=== PATIENT | female | born 1955 | race Caucasian/White ===

== ENCOUNTER 2019-06-10 13:36 | Outpatient (CLI) | payer OTHER, SELFPAY ==
[2019-06-10 14:10] LABS: Abs Immature Grans 0.01 k/cumm (0.0-0.09); Absolute Basophil Count 0.04 k/cumm (0.0-0.2); Absolute Eosinophil Count 0.11 k/cumm (0.0-0.7); Absolute Lymphocyte Count 2.02 k/cumm (1.2-3.4); Absolute Monocyte Count 0.61 k/cumm (0.11-0.7); Absolute Neutrophil Count 4.48 k/cumm (1.2-6.7); Basophils % 0.6; Eosinophils % 1.5; HCT 40.7 % (36.0-46.0); HGB 13.5 g/dL (12.0-15.5); Immature Grans % 0.1 %; Lymphocytes % 27.8; Mean Corp. HGB Concentration 33.2 g/dL (32.0-36.0); Mean Corpuscular Hemoglobin 30.7 pg (27.0-33.0); Mean Corpuscular Volume 92.5 fL (80-95); Mean Platelet Volume 11.8 fL (8.0-11.0); Monocytes % 8.4; Neutrophils % 61.6; Platelet Count 256 x1000/uL (130-400); RBC Distribution Width 13.7 % (11.7-14.6); White Blood Cell Count 7.27 k/cumm (4.4-10.8)
[2019-06-10 15:03] LABS: ALT 24 U/L (14-59); AST 13 U/L (15-37); Alkaline Phosphatase 122 U/L (46-116); Anion Gap 9.1 mmol/L (3-11); BUN 18 mg/dL (7-18); Bilirubin, Total 0.5 mg/dL (0.2-1.0); CO2 27.9 mmol/L (21.0-32.0); CREATININE 0.89 mg/dL (0.55-1.02); Calcium 9.2 mg/dL (8.5-10.1); Chloride 103 mmol/L (98-107); Glucose 94 mg/dL (74-106); Lipase 109 U/L (73-393); Potassium 4.1 mmol/L (3.5-5.1); Sodium 140 mmol/L (136-145)
== END 2019-06-10 13:56 ==
PROVIDERS: PCP Nurse Practitioner; Visit Provider Surgery
DX: K80.50 Calculus of bile duct without cholangitis or cholecystitis without obstruction (principal)
CPT/HCPCS: 36415; 80053; 83690; 85025

== ENCOUNTER 2019-06-15 11:45 | Day surgery (SDC) | payer OTHER, SELFPAY ==
[2019-06-15] VITALS (9 sets, daily range): BP systolic 116–161; BP diastolic 65–96; PULSE 58–65; RESP 12–16; TEMP 36–36.4; O2SAT 92–100
[2019-06-15] MEDS: Acetaminophen 500 MG TAB 1000 MG PO (12:15)
[2019-06-15] MEDS: Celecoxib 200 MG CAP PO (12:15)
[2019-06-15] MEDS: Lactated Ringers 1,000 ML 80 ML IV (12:31)
[2019-06-15] MEDS: AMPICILLIN/SULBACTAM 3 GM in Normal Saline 100 ML IVPB (13:15)
--- NOTE | 2019-06-15 14:16 | GB_PTH ---
PATIENT: Benny Pena LOC: [facility] U#:[id number] AGE/SX: 63/F ROOM: RE06/15/[address]: Belen Miranda : 1955 BED: DIS: 06/15/2019 SPEC #: [id number] RECD: 06/15/19 16:20 STATUS: PAYAM REFelicitas #: [id number] KAMALJIT: 06/15/19 14:[address]: Belen Miranda DEPT: Surgical Specimen RECD BY: Aleyda Barron ENTERED: 06/15/19 16:20 SP TYPE: GB OTHR DR: Randa Galvez Tissues: 1 - GALLBLADDER Procedures: GROSS AND MICRO LEVEL 3 Comments: [id number]
[2019-06-15] MEDS: Cellulose,Oxidized 4X8 1 PACKET MC (14:18)
--- NOTE | 2019-06-15 14:49 | W.PM.OP ---
Date of service: 06/15/19 Time of Service: 14:49 Operative Note Operative Note DATE OF PROCEDURE: 06/15/19 PRE-OP DIAGNOSIS: chronic neto/gallstones POST-OP DIAGNOSIS: same PROCEDURE: lap neto SURGEON: Andrew Oquendo MELT DOWN FURNACE OPERATOR: Rajani Jin ANESTHESIA: GETA ESTIMATED BLOOD LOSS: 10 PATHOLOGY: other COMPLICATIONS: None Patient was transported to: PACU Procedure Description: CHOLECYSTECTOMY POST-OPERATIVE REPORT PRE-OPERATIVE DIAGNOSIS: cholecystitis, cholelithiasis. POST-OPERATIVE DIAGNOSIS: chronic cholecystitis, cholelithiasis PROCEDURE: Laparoscopic cholecystectomy. SURGEON: Andrew Oquendo DO assist: DENI Jin ANESTHESIA: General. ESTIMATED BLOOD LOSS: Less than 10 mL COMPLICATIONS: The patient tolerated the procedure without complication. INDICATIONS: The pt is seen at the request of there PCP regarding acute on chronic cholecystitis, cholelithiasis. The pt has failed outpt conservative medical measures and is here today for laparoscopic cholecystectomy. Informed consent was obtained, explaining risks and benefits of the procedure including but not limited to bleeding, infection, pneumonia, blood clots, possible damage to bowel, bladder, blood vessels, bile ducts, possible open procedure, complications of general anesthesia and other unforetold complications. PROCEDURE: The patient agrees and is brought to the operative room suite and placed in supine position. Anesthesia was administered per the Department of Anesthesia. The patient did receive IV antibiotics. NG tube is placed. The patient was prepped and draped in the usual sterile fashion using DuraPrep scrub solution. Pause for the cause was done. 20 mL of 1% buffered lidocaine was used for local anesthetization. A stab incision was made in the umbilicus and the Verres inserted. Drop test was positive and insufflation was begun. When 15 mm of pressure was noted on the monitor, the Veress was removed and #5 port inserted. The camera was inserted through the port and shows no damage to underlying structures. A 10 mm port was then placed in the epigastric position under direct visualization following creation of local field blocks as well as two 5 mm ports in the right upper quadrant. The gallbladder fundus was grasped and retracted towards the right shoulder. Infundibulum was grasped and retracted laterally. The hepat-duodenal ligament is entered. The cystic duct and artery are dissected out and the most inferior portion of the gallbladder plate is removed from the liver and the critical view of safety was obtained after clearing away all fatty material. Endo Clips were placed across the duct and artery and these structures are divided. The remainder of the gallbladder was excised from the liver bed. The gallbladder was placed in a bag and brought out. Examination of the gallbladder shows indeed the cystic duct and artery to have been divided. There is some generalized oozing of the liver bed - x2 ppices of surgicel are placed. The remainder of the abdomen was copiously irrigated with a liter of saline. All saline is removed. There is no bleeding or bile leakage from the liver bed or the clips sites. An EndoClose needle was used to close the 10 mm port site with an 0 Vicryl. All ports and instruments are removed. SPonge and needle counts are correct. Pneumoperitoneum is evacuated and the port sites are monitored to make sure there is no bleeding at the time of desufflation. Port sites are irrigated and the skin is closed with 4-0 Monocryl in a running subcuticular fashion. Skin glue sterile dressings are applied. The patient tolerated the procedure well without complications, transferred to the recovery room in stable condition. ANDREW OQUENDO DO
--- NOTE | 2019-06-15 15:33 | PDOC.DSDIS_ITS ---
Discharge Plan Disposition Patient Disposition: HOME Condition: Good Discharge Details Reason For Visit: gall Attending Provider: Belen Miranda Primary Care Provider: Randa Galvez Home Meds and New Rx's Prescriptions: New oxycodone 5 mg capsule 5 mg PO Q4H PRN (Reason: pain) Qty: 10 RF: 0 ibuprofen 600 mg tablet 600 mg PO Q6H PRN (Reason: pain) Qty: 60 RF: 0 ondansetron HCl [Zofran] 4 mg tablet 4 mg PO Q6H PRN (Reason: nausea and vomiting) Qty: 3 RF: 0 Continued furosemide [Lasix] 40 MG tablet 40 mg PO DAILY RF: 0 atenolol 100 MG tablet 100 mg PO DAILY RF: 0 meloxicam [Mobic] 15 MG tablet 15 mg PO DAILY RF: 0 omeprazole 40 MG capsule,delayed release(DR/EC) 40 mg PO DAILY RF: 0 lisinopril 10 MG tablet 10 mg PO DAILY RF: 0 gabapentin 300 MG capsule 300 mg PO TID RF: 0 sertraline [Zoloft] 25 MG tablet 25 mg PO DAILY RF: 0 Discharge Instructions Additional Instructions: Care after Gallbladder Surgery -You should walk frequently, gradually, increasing the distance. You may climb stairs, just go slowly. -You can take Advil 600mg 4 times a day with food for the first week for pain; you may take your prescription medication as prescribed-in addition to the Advil. Discontinue Advil if it hurts your stomach. Do not take Advil if you are intolerant to aspirin products or have stomach problems. ? Use an ice bag for the first 72 hours. This helps to decrease swelling, which causes pain. It is normal to be more sore/painful and swollen towards the end of the day and first thing in the morning. ? Gallbladder surgery can make you very nauseated; use Zofran for nausea, for the first 24 hours. The nausea generally stops after 24 hours. ? Use milk of magnesia or prune juice to prevent constipation (this is a particular side effect of pain medication). Do not allow yourself to become con stipated. ? Avoid fatty or greasy foods; introduce these slowly, with care, after about 1 month. Follow the low-fat diet sheet that will be given to you at the office or hospital. ? Start out eating very small, bland amounts of food. Do not take pain pills on an empty stomach. - You can remove the Band-Aids and take a shower 24 hours after surgery. There will be some narrow white strips of tape across your incisions (under the Band-Aids). DO NOT REMOVE THESE. It is all right if they get wet. They will be removed in the doctor?s office. ? Do not go swimming or sit in a hot tube for two weeks. ? There are no stitches to remove. ? Do not drive your car x72hrs and then only if you have no pain and can move freely. Do not drive if you are taking pain narcotic pain medications. ? You may resume sexual activity whenever pain and soreness subside, usually in 2 weeks. ? Do no lift anything over 5 lbs. for the first 10 days. Minimize strenuous activity for the next two weeks. ? You may return to work in one week, or when you feel able, provided you do not have to do any heavy lifting or prolonged standing. ? You should return to Dr. Miranda?s office for a post-op appointment about one week after surgery. Please call the Surgical Clinic at: [phone] to schedule an appointment. My Medications for pain and nausea are: ibuprofen and ultram and zofran When to Call the Office: ? If the incision becomes red or swollen, or there is more than a little drainage from it. ? If you develop a temperature higher than 100.5 F. ? If your eyes turn yellow ? Vomiting and can?t keep fluids down Discharge Orders Discharge Orders: Discharge Order (Routine); Ordered 06/15/19 Ordered By: Belen Miranda DS: Diagnosis Discharge Diagnosis (1) Biliary colic: Status: Acute (2) Gallstones without obstruction of gallbladder: Status: Acute
== END 2019-06-15 16:50 | disposition home or self-care (01) ==
PROVIDERS: PCP Nurse Practitioner; Visit Provider Surgery
PROC: 0FT44ZZ Resection of Gallbladder, Percutaneous Endoscopic Approach (ICD-10-PCS; CPT 47562; principal; 2019-06-15 13:00)
DX: K80.12 Calculus of gallbladder with acute and chronic cholecystitis without obstruction (principal); I10 Essential (primary) hypertension
CPT/HCPCS: 47562; 88304; J0295; J1100; J1885; J2405; J2704

== ENCOUNTER 2019-06-18 23:30 | Inpatient (IN) | payer OTHER, SELFPAY ==
--- NOTE | 2019-06-18 23:30 | DI.CT_ITS ---
EXAM: CT ABDOMEN PELVIS W CLINICAL HISTORY: abdominal pain and fever, recent surgery TECHNIQUE: Imaging Protocol: Axial computed tomography images with coronal and sagittal reformatted images were created and reviewed CONTRAST MATERIAL: Intravenous: Omnipaque 350 Contrast volume:100 mL Oral: Yes COMPARISON: No exams were available for comparison FINDINGS: ABDOMEN: Lung Bases: Normal where visualized. Liver: Normal density. There are a few tiny hypodensities in the liver. They are too small for furth er characterization but likely reflect small cysts. Portal, Superior Mesenteric, and Splenic Veins: Unremarkable. Gallbladder and Biliary Tract: Surgical clips are seen in the gallbladder fossa and pneumoperitoneum is present suggesting recent cholecystectomy.Correlation with patient's surgical history. There is a 7.7 x 5.2 x 3.6 cm complex mass in the gallbladder fossa. It contains liquid and gas. This may rep resent an abscess. Inflammatory stranding is seen in the surrounding soft tissues. There also appea rs to be mild thickening of the adjacent transverse colon and stomach. No biliary ductal dilatation or pneumobilia is present. Pancreas: Normal density, no abnormal calcifications or inflammatory process. Spleen: Normal. Adrenals: No masses seen. Kidneys: Normal size, contour and axis. No radiodense stones or obstructive uropathy. There is a 4 cm simple cyst in the left kidney. Abdominal Aorta: Abdominal portion non-dilated. Atherosclerosis is present. Bowel: No evidence of bowel obstruction. The appendix is not visualized but no findings to suggest a n acute appendicitis are present. Mild thickening of the wall of the proximal transverse colon and s tomach adjacent to the gallbladder fossa is noted. Peritoneal Cavity: There is pneumoperitoneum present this may reflect the patient's recent surgery. A small amount of pelvic ascites is present. Lymph Nodes: Within normal limits. Bones: Degenerative changes are present. There is a left convex scoliosis of the lumbar spine. Soft Tissues: Unremarkable. PELVIS: Bladder: Symmetric distention, no gross wall thickening. Reproductive Organs: Unremarkable as visualized. Lymph Nodes: Within normal limits. Bones: Degenerative changes are present. IMPRESSION: 1. 7.7 cm complex fluid and air collection in the gallbladder fossa suspicious for an abscess. Posts urgical hematoma cannot be excluded. 2. Mild pneumoperitoneum likely reflecting recent surgery. 3. Small amount of free fluid in the pelvis. 4. Mild wall thickening in the proximal transverse colon and stomach adjacent to the gallbladder isidro a fluid collection suggesting a mild secondary inflammatory process. Incidental findings Critical Findings RADIATION DOSE DELIVERED: DATA REPOSITORY: All CT scans at this facility are submitted to the National Radiology Data Registry (NRDR) Dose Index Registry (DIR) with the [employer] (ACR). RADIATION OPTIMIZATION: All CT scans at this facility use at least one of these dose optimization te chniques: automated exposure control; mA and/or kV adjustment per patient size (includes targeted exa ms where dose is matched to clinical indication); or iterative reconstruction.
[2019-06-18 23:35] VITALS: BP 119/65; PULSE 84; RESP 16; TEMP 37; O2SAT 97
[2019-06-18] MEDS: Breeza Beverage 473 ML BTL PO ×2 (23:36→23:37)
[2019-06-18] MEDS: Omnipaque 350 MG/ML 50 ML BTL PO (23:36)
--- NOTE | 2019-06-18 23:37 | ED.GENADUL_ITS ---
Discharge Plan Disposition Patient Disposition: [facility] INPATIENT Condition: Stable Discharge Details Chief Complaint: Abd Prob Clinical Impression: Intra-abdominal infection Primary Care Provider: Randa Galvez ED Provider: Dylon Christian Home Meds and New Rx's Prescriptions: No Action furosemide [Lasix] 40 MG tablet 40 mg PO DAILY RF: 0 atenolol 100 MG tablet 100 mg PO DAILY RF: 0 meloxicam [Mobic] 15 MG tablet 15 mg PO DAILY RF: 0 omeprazole 40 MG capsule,delayed release(DR/EC) 40 mg PO DAILY RF: 0 lisinopril 10 MG tablet 10 mg PO DAILY RF: 0 gabapentin 300 MG capsule 300 mg PO TID RF: 0 sertraline [Zoloft] 25 MG tablet 25 mg PO DAILY RF: 0 acetaminophen [Tylenol Extra Strength] 500 mg Tablet 1,000 mg PO Q4H PRN PRNRF: 0 oxycodone 5 mg capsule 5 mg PO Q4H PRN (Reason: pain) Qty: 10 RF: 0 ondansetron HCl [Zofran] 4 mg tablet 4 mg PO Q6H PRN (Reason: nausea and vomiting) Qty: 3 RF: 0 Medical Decision Making 63 yo female with hx of htn who underwent lap neto this past Thursday comes in with intermittent fever to 102 since then and tonight started to have abdominal pain. Has had some nausea no vomit. Denies any cough, runny nose, urinary symptoms, chest pain, headache,neck stiffness, and no known sick contacts. She localizes the pain to the upper abdomen. Her incisions show no signs of infection and she has tenderness in the upper abdomen bilaterally. Will obtain labs and Ct to eval for abscess among other pathology. Given lack of cough or other respiratory symptoms doubt pna and no symptoms to suggest covid19. CT shows hematoma vs phelgmon vs early abscess. Given her fevers likely abscess. Spoke with Dr. Denson and will give zosyn and admit. Pt agrees withp karthik Differential Diagnosis Differential Diagnosis: abscess, pneumoperitoneum, uti Medical Records Medical records reviewed: Yes I reviewed the patient's medical records. Imaging Data Radiologic Study: Attestation: I personally reviewed and interpreted this imaging study as follows: Imaging: CT Scan Radiologist's impression: IMPRESSION: 1. A 7.7 cm heterogeneous collection in the gallbladder fossa adjacent to gallbladder clips. This may represent a hematoma that may or may not be infected. The presence of inflammatory stranding in the surrounding soft tissues and a significant amount of gas in the lesion suggests infection. 2. Mild pneumoperitoneum, possibly residual from recent surgery however, there are gas bubbles tracking anteriorly from this lesion to the peritoneal cavity. 3. A small amount of free fluid extending into the lower pelvis. 4. Other incidental findings as above. Lab Data Lab results reviewed: Yes I reviewed the patient's lab results. HPI General Mode of arrival: wheelchair . Date/Time Provider Initiated Documentation: 06/18/19 23:31 . Limitations to Documentation: no limitations . Information obtained by: patient . History of Present Illness 63 year old F presents to the emergency department with the chief complaint of abdominal pain, described as moderate, Patient started experiencing this hour(s) (3) and it has been constant. No relieving factors improve symptom(s), No exacerbating factors reported . Patient did receive the following treatments prior to arrival, none Related Data Home Medications Medication Instructions Recorded Confirmed atenolol 100 mg PO DAILY tab-cap NS 12/09/16 06/18/19 furosemide [Lasix] 40 mg PO DAILY tab-cap NS 12/09/16 06/18/19 gabapentin 300 mg PO TID tab-cap NS 12/09/16 06/18/19 lisinopril 10 mg PO DAILY tab-cap NS 12/09/16 06/18/19 meloxicam [Mobic] 15 mg PO DAILY tab-cap NS 12/09/16 06/18/19 omeprazole 40 mg PO DAILY tab-cap NS 12/09/16 06/18/19 sertraline [Zoloft] 25 mg PO DAILY tab-cap NS 12/09/16 06/18/19 ondansetron HCl [Zofran] 4 mg PO Q6H PRN #3 tab 06/15/19 06/18/19 oxycodone 5 mg PO Q4H PRN #10 cap 06/15/19 06/18/19 acetaminophen [Tylenol Extra 1,000 mg PO Q4H PRN PRN 06/18/19 06/18/19 Strength] Previous Rx's Medication Instructions Recorded ondansetron HCl [Zofran] 4 mg PO Q6H PRN #3 tab 06/15/19 oxycodone 5 mg PO Q4H PRN #10 cap 06/15/19 Allergies Allergy/AdvReac Type Severity Reaction Status Date / Time No Known Allergies Allergy Unverified 06/18/19 23:43 Review of Systems All systems reviewed & are unremarkable except as noted in HPI and below Constitutional Constitutional: Denies weakness Cardiovascular Cardiovascular: Denies chest pain and Denies dyspnea Respiratory Respiratory: Denies cough and Denies dyspnea Gastrointestinal Gastrointestinal: Denies vomiting Genitourinary Genitourinary: Denies dysuria Musculoskeletal Musculoskeletal: Denies joint swelling Integumentary/Breasts Skin/Breast: Denies rash Neurologic Neurologic: Denies weakness Psychiatric Psychiatric: Denies depression PFSH Medical History (Updated 06/19/19 @ 01:42 by Dylon Christian MD) Fibromyalgia Gallstones (Acute) Gallstones without obstruction of gallbladder (Acute) GERD (gastroesophageal reflux disease) High cholesterol Hypertension Kidney stones Surgical History EGD - MAC (12/24/16) , Ectopic Tonsillectomy Social History (Updated 05/27/19 @ 15:06 by Gricelda Barry MD) Smoking/Tobacco Use Status: Former Tobacco Use Smokeless tobacco user: other Alcohol Intake: current Alcohol Intake frequency: a few times a month Alcohol type: hard liquor Drug use: Never Substance use type: tranquilizers Details: PT USES ELECTRONIC CIGARETTES Do you feel safe at home: Yes Do you feel safe in your relationship?: Yes Exam Const General: no acute distress Orientation: alert HENMT Head: normal to inspection Ears: external ears normal General nose exam: external nose normal Mouth: moist mucous membranes Eyes General: appearance normal, both eyes and all related structures Neck Neck: normal visual inspection Resp Effort & Inspection: normal respiratory effort and able to speak in complete sentences Cardio Rate: regular rate GI Palpation: soft Skin General skin exam: no rashes or lesions noted Neuro General: patient alert and patient oriented x3 Extrem General: normal to inspection Psych Mental Status: mental status grossly normal
[2019-06-19] VITALS (22 sets, daily range): BP systolic 91–132; BP diastolic 54–84; PULSE 74–85; RESP 16–20; TEMP 36.6–37.3; O2SAT 91–99
--- NOTE | 2019-06-19 | DI.NM_ITS ---
EXAM: NM HEPATOBILIARY SCAN GRP CLINICAL HISTORY: BIloma s/p lap neto. TECHNIQUE: Injected dose: 4.4 mCi Tc-99 mebrofenin Initial dynamic images: 60 minutes COMPARISON: CT ABDOMEN PELVIS W from 06/19/2019 FINDINGS: Normal hepatic transit time. Prompt excretion into the bile ducts and small bowel. The gallbladder is not visualized consistent with recent cholecystectomy. There is no extravasation of contrast material to suggest a bile leak. IMPRESSION: 1. Unremarkable examination status post cholecystectomy. 2. No extravasation of contrast material to suggest a bile leak.
[2019-06-19] MEDS: Ondansetron 4 MG/2 ML VIAL IVP (00:03)
[2019-06-19] MEDS: Normal Saline 1,000 ML 1000 ML IV (00:03)
[2019-06-19 00:08] LABS: Lactate 1.4 mmol/L (0.6-1.4)
[2019-06-19 00:11] LABS: Abs Immature Grans 0.02 k/cumm (0.0-0.09); Absolute Basophil Count 0.01 k/cumm (0.0-0.2); Absolute Eosinophil Count 0.04 k/cumm (0.0-0.7); Absolute Lymphocyte Count 0.65 k/cumm (1.2-3.4); Absolute Neutrophil Count 8.03 k/cumm (1.2-6.7); Basophils % 0.1; Eosinophils % 0.4; HCT 39.6 % (36.0-46.0); HGB 13.1 g/dL (12.0-15.5); Immature Grans % 0.2 %; Lymphocytes % 7.1; Mean Corp. HGB Concentration 33.1 g/dL (32.0-36.0); Mean Corpuscular Hemoglobin 30.7 pg (27.0-33.0); Mean Corpuscular Volume 92.7 fL (80-95); Mean Platelet Volume 12.2 fL (8.0-11.0); Monocytes % 4.4; Neutrophils % 87.8; Platelet Count 158 x1000/uL (130-400); RBC 4.27 m/cumm (4.00-5.20); RBC Distribution Width 13.5 % (11.7-14.6); White Blood Cell Count 9.15 k/cumm (4.4-10.8)
[2019-06-19] MEDS: Omnipaque 350 MG/ML 100 ML BTL IJ (00:12)
--- NOTE | 2019-06-19 00:12 | NUR.NOTE ---
Nursing Note: 0005 Pt began drinking oral contrast,
[2019-06-19 00:23] LABS: INR 1.1 (0.9-1.1); PTT Activated 30.1 sec (21.0-31.4); Prothrombin Time 11.1 sec (9.3-11.0)
[2019-06-19 00:35] LABS: ALT 49 U/L (14-59); AST 21 U/L (15-37); Albumin 3.1 g/dL (3.4-5.0); Alkaline Phosphatase 128 U/L (46-116); Anion Gap 10.3 mmol/L (3-11); BUN 11 mg/dL (7-18); Bilirubin, Direct 0.41 mg/dL (0.00-0.20); CO2 28.7 mmol/L (21.0-32.0); CREATININE 1.18 mg/dL (0.55-1.02); Calcium 8.5 mg/dL (8.5-10.1); Chloride 100 mmol/L (98-107); Estimated GFR 46.41 (mL/min/1.73m2); Glucose 153 mg/dL (74-106); Lipase 41 U/L (73-393); Potassium 3.4 mmol/L (3.5-5.1); Sodium 139 mmol/L (136-145); Total Protein 6.4 g/dL (6.4-8.2)
[2019-06-19 01:10] LABS: Bilirubin Small (Negative); Blood Large (Negative); Clarity Sl Cloudy (Clear); Glucose Negative (Negative); Ketones Negative (Negative); Leukocyte Esterase Negative (Negative); Nitrite Negative (Negative)
[2019-06-19 01:20] LABS: Bacteria Few HPF (Negative); C & S Indicated? Yes; Casts Negative LPF (Negative); Crystals Negative HPF (Negative); Epithelial Cells Few HPF (Negative); Mucus Negative (Negative)
--- NOTE | 2019-06-19 01:31 | DI.VRAD_ITS ---
PROCEDURE INFORMATION: Exam: CT Abdomen And Pelvis With Contrast Exam date and time: 06/18/2019 11:33 PM Age: 63 years old Clinical indication: Abdominal pain; Prior surgery; Surgery date: <1 month; Surgery type: Gall bladder 06/09 TECHNIQUE: Imaging protocol: Computed tomography of the abdomen and pelvis with intravenous contrast. COMPARISON: No relevant prior studies available. FINDINGS: Lungs: The visualized lung bases appear normal. Liver: There is a hypodensity in the left liver lobe, too small to characterize but likely a cyst or hamartoma. Gallbladder and bile ducts: There are surgical clips in the gallbladder fossa. Adjacent to the surgical clips, in the gallbladder fossa, there is a contained heterogeneous mass with liquid, solid and gaseous component. Multiple gas bubbles are seen. It measures 7.7 x 5.2 x 3.6 cm. There is inflammatory stranding in the surrounding mesenteric and retroperitoneal fat extending to the level of the gastric antrum, which shows mild wall thickening. There is mild diffuse vanessa mesentery. There is fluid tracking down the right pararenal space and right paracolic gutter to the pelvis. A small amount of free fluid is seen in the pelvis. Pancreas: Normal. No ductal dilation. Spleen: Normal. No splenomegaly. Adrenals: Normal. No mass. Kidneys and ureters: There is a 4 cm simple appearing cyst in the left kidney. Stomach and bowel: There is no evidence of small bowel or colonic obstruction. Appendix: The appendix is not identified. Intraperitoneal space: There is a small amount of free air in the peritoneal cavity. Vasculature: Unremarkable. No abdominal aortic aneurysm. Lymph nodes: Unremarkable. No enlarged lymph nodes. Bladder: Unremarkable as visualized. Reproductive: Unremarkable as visualized. Bones/joints: There is mild levoconvex rotoscoliosis of the lumbar spine.The spine demonstrates moderate degenerative changes at multiple levels. At L5-S1, there is degenerative disc disease with vacuum disc and prominent posterior osteophytes causing moderate to severe bilateral neural foraminal narrowing. Soft tissues: Unremarkable. IMPRESSION: 1. A 7.7 cm heterogeneous collection in the gallbladder fossa adjacent to gallbladder clips. This may represent a hematoma that may or may not be infected. The presence of inflammatory stranding in the surrounding soft tissues and a significant amount of gas in the lesion suggests infection. 2. Mild pneumoperitoneum, possibly residual from recent surgery however, there are gas bubbles tracking anteriorly from this lesion to the peritoneal cavity. 3. A small amount of free fluid extending into the lower pelvis. 4. Other incidental findings as above. Findings were discussed with Dylon Christian at 06/19/2019 1:30 AM EDT. Dictated and Authenticated by: Uriah Rao MD. Ordering:MALOU Osborne MD
[2019-06-19] MEDS: Normal Saline 1,000 ML 150 ML IV ×2 (02:01→09:11)
[2019-06-19] MEDS: PIPERACILLIN/TAZO 4.5 GM in Normal Saline 100 ML IVPB (02:02)
--- NOTE | 2019-06-19 07:44 | PHA.ADMREV ---
Pharmacy Clinical Review - Admission Clinical Review (Last Updated 06/15/19 @ 15:33 by Belen Miranda DO) Intra-abdominal infection (Acute) No Known Allergies Allergy (Unverified 06/18/19 23:43) Height 5 ft 7 in Weight 112.1 kg Post-op Lap Choly 06/15/19, presents to ER w/possible intrabdominal infection - Renal Dosing Renal Dosing: BUN 11 mg/dL (7-18) 06/18/19 00:01 Creatinine 1.18 mg/dL (0.55-1.02) H 06/18/19 00:01 Medications needing adjustments: Reviewed (CrCl~48ml/min-no renal meds) - Anticoagulation Anticoagulation: Hgb 13.1 g/dL (12.0-15.5) 06/18/19 00:01 Hct 39.6 % (36.0-46.0) 06/18/19 00:01 Plt Count 158 x1000/uL (130-400) 06/18/19 00:01 INR 1.1 (0.9-1.1) 06/18/19 00:01 Creatinine 1.18 mg/dL (0.55-1.02) H 06/18/19 00:01 DVT Prohphylaxis: Reviewed (none at this time....was in OR ~ 2am on 06/19/19) Therapeutic Anticoagulation: N/A - Opiate Usage Evaluate Pain Scale/Pains Meds: N/A - Relevant Labs Sodium 139 mmol/L (136-145) 06/18/19 00:01 Potassium 3.4 mmol/L (3.5-5.1) L 06/18/19 00:01 Chloride 100 mmol/L (98-107) 06/18/19 00:01 Electrolytes, C-Reactive P, ESR: Reviewed (Lactate normal 1.4, Alk Phos 128, will likely address Potassium replacement this morning) - Antimicrobial Stewardship Antibiotic appropriateness: Reviewed (Zosyn 4.5gram x 1 pre-op) Surgical Abx d/c within 24 hr: N/A (no post-op Anbx ordered) Culture review/Resistance: Reviewed (Blood and urine pending) - DM Control DM Control: Glucose 153 mg/dL (74-106) H 06/18/19 00:01 Insulin Dosing: N/A - Heart Failure/MA EF%, JOSE ARMANDO's, B-Blockers, Diuretics: N/A - BP Control BP Control: Blood Pressure 132/79 Blood Pressure 120/59 Blood Pressure 120/59 Blood Pressure 112/61 Blood Pressure 123/65 Blood Pressure 118/58 Blood Pressure 104/54 Blood Pressure 124/57 Blood Pressure 128/67 Blood Pressure 119/65 If elevated: N/A - QTc Review If Elevated: N/A - IV to PO Switch IV Medications: Reviewed (NPO for now, has IV APAP, IV Ketorolac & Zofran ordered) - Home Meds Home Med List reviewed: Reviewed (NPO, no home meds ordered, patient was in surgery, MD will be in shortly to see patient, likely will add home meds once taking oral) - Current meds Current Medication Order Review: Reviewed (IVFs, pain and nausea meds only at this time)
[2019-06-19] MEDS: Ketorolac 15 MG/ML VIAL IVP ×2 (09:10→16:08)
--- NOTE | 2019-06-19 09:13 | W.PM.HP.N ---
Date of service: 06/19/19 Time of Service: 09:13 Assessment and Plan Assessment and plan (1) Biloma following surgery: Status: Acute Assessment and plan: A\\ Mrs Pena is 4 days s/p Lap. Ada. She has increase in pain last night and fevers at home CT scan showed a fluid collection in the Gallbladder fossa- Leak from ducts of luschka vs cystic duct leak No Leukocytosis No fevers since admission P\\ HIDA scan today Most likely will need CT guided drainage procedure at [facility] or [email or web address] tomorrow +\- ERCP with stent placement Continue with NPO status and no Narcotic pain medications until after HIDA scan Plan discussed with patient Diagnoses and potential treatment discussed with patient She is in agreement with this plan. Qualifiers: Encounter type: initial encounter Qualified Code(s): T81.89XA - Other complications of procedures, not elsewhere classified, initial encounter; K66.8 - Other specified disorders of peritoneum History of Present Illness History of Present Illness Chief Complaint: Abdominal pain and fever Consults Consult date: 06/19/19 Requesting physician: Dylon Christian Narrative: Mrs. Pena is a pleasant 63 year old female POD #4 for a Laparoscopic Cholecystectomy. She started having some low grade fevers on Thursday afternoon without pain, N/V, headaches. Hydration, ambulation and tylenol was recommended to patient. Patient called on Thursday morning and still was having low grade \fevers but again no other symptoms. I asked her to continue with hydration and tylenol and to call if she developed abdominal pain. At 10:30 at night I got a call and she had increased abdominal pain as well as continued fever so I asked her to come to the ER. Labs were unremarkable. CT scan revealed a fluid collection in the gallbladder fossa with small amonut of air. ? infection. There was no intra-hepatic biliary dilation noted on CT scan. Bowel looked normal. Patient was admitted for further care. This morning she continues to have abdominal pain with movement only or deep breath. She has been afebrile since her admission. She denies N/V. She continues to pass flatus. Review of Systems Constitutional Constitutional: Denies fever(s), Denies headache(s), Denies night sweats, Reports poor appetite and Denies weight loss Eyes Eyes: Denies change in vision ENT Ears, Nose, Mouth, and Throat: Denies headache(s) and Denies hoarseness Cardiovascular Cardiovascular: Denies chest pain, Denies chest pain at rest and Denies dyspnea Respiratory Respiratory: Denies cough and Denies dyspnea Gastrointestinal Gastrointestinal: Reports as per HPI Genitourinary Genitourinary: Denies urinary frequency and Denies difficulty voiding Musculoskeletal Musculoskeletal: Reports system reviewed and no additional complaints, except as documented Integumentary/Breasts Skin/Breast: Reports system reviewed and no additional complaints, except as documented Neurologic Neurologic: Reports system reviewed and no additional complaints, except as documented and Denies headache(s) Psychiatric Psychiatric: Reports system reviewed and no additional complaints, except as documented Endocrine Endocrine: Reports system reviewed and no additional complaints, except as documented PFSH Medical History (Updated 06/19/19 @ 09:33 by Gricelda Barry MD) Fibromyalgia Gallstones (Acute) Gallstones without obstruction of gallbladder (Resolved) GERD (gastroesophageal reflux disease) High cholesterol Hypertension Kidney stones Surgical History (Updated 06/19/19 @ 09:19 by Gricelda Barry MD) EGD - MAC (12/24/16) , Ectopic S/P laparoscopic cholecystectomy (Acute ~06/15/19) Tonsillectomy Social History (Updated 05/27/19 @ 15:06 by Gricelda Barry MD) Smoking/Tobacco Use Status: Former Tobacco Use Smokeless tobacco user: other Alcohol Intake: current Alcohol Intake frequency: a few times a month Alcohol type: hard liquor Drug use: Never Substance use type: tranquilizers Details: PT USES ELECTRONIC CIGARETTES Do you feel safe at home: Yes Do you feel safe in your relationship?: Yes Meds Home Medications and Allergies Home Medications Medication Instructions Recorded Confirmed Type atenolol 100 mg PO DAILY tab-cap NS 12/09/16 06/18/19 History furosemide [Lasix] 40 mg PO DAILY tab-cap NS 12/09/16 06/18/19 History gabapentin 300 mg PO TID tab-cap NS 12/09/16 06/18/19 History lisinopril 10 mg PO DAILY tab-cap NS 12/09/16 06/18/19 History meloxicam [Mobic] 15 mg PO DAILY tab-cap NS 12/09/16 06/18/19 History omeprazole 40 mg PO DAILY tab-cap NS 12/09/16 06/18/19 History sertraline [Zoloft] 25 mg PO DAILY tab-cap NS 12/09/16 06/18/19 History ondansetron HCl [Zofran] 4 mg PO Q6H PRN #3 tab 06/15/19 06/18/19 Rx oxycodone 5 mg PO Q4H PRN #10 cap 06/15/19 06/18/19 Rx acetaminophen [Tylenol Extra 1,000 mg PO Q4H PRN PRN 06/18/19 06/18/19 History Strength] Allergies Allergy/AdvReac Type Severity Reaction Status Date / Time No Known Allergies Allergy Unverified 06/18/19 23:43 Exam Const General: cooperative and no acute distress Orientation: alert and oriented x3 HENMT Head: normocephalic and atraumatic Resp Effort & Inspection: normal respiratory effort Auscultation: clear to auscultation bilaterally Cardio Rate: regular rate Rhythm: regular rhythm Heart Sounds: no gallops, no murmurs and no rubs GI Palpation: soft, no hepatosplenomegaly and tender in the RUQ; with no rebound tenderness Auscultation: normal bowel sounds Results Labs Result diagrams: 06/18/19 00:01 06/18/19 00:01 Labs: Laboratory Results - last 24 hr 06/18/19 06/18/19 06/18/19 00:01 00:01 00:01 WBC 9.15 RBC 4.27 Hgb 13.1 Hct 39.6 MCV 92.7 MCH 30.7 MCHC 33.1 RDW 13.5 Plt Count 158 MPV 12.2 H Immature Gran % 0.2 Neutrophils % 87.8 Lymphocytes % 7.1 Monocytes % 4.4 Eosinophils % 0.4 Basophils % 0.1 Absolute Neutrophils 8.03 H Absolute Lymphocytes 0.65 L Absolute Monocytes 0.40 Absolute Eosinophils 0.04 Absolute Basophils 0.01 PT INR APTT Sodium 139 Potassium 3.4 L Chloride 100 Carbon Dioxide 28.7 Anion Gap 10.3 BUN 11 Creatinine 1.18 H Estimated GFR/1.73 m2 46.41 Glucose 153 H Lactate 1.4 Calcium 8.5 Total Bilirubin 1.0 Conjugated Bilirubin 0.41 H AST 21 ALT 49 Alkaline Phosphatase 128 H Total Protein 6.4 Albumin 3.1 L Lipase 41 Urine Color Urine Clarity Urine pH Ur Specific [place] Urine Protein Urine Ketones Urine Blood Urine Nitrite Urine Bilirubin Urine Urobilinogen Ur Leukocyte Esterase Urine RBC Urine WBC Ur Epithelial Cells Urine Crystals Urine Bacteria Urine Casts Urine Mucus Ur Culture Indicated? Urine Glucose 06/18/19 06/18/19 00:01 01:00 WBC RBC Hgb Hct MCV MCH MCHC RDW Plt Count MPV Immature Gran % Neutrophils % Lymphocytes % Monocytes % Eosinophils % Basophils % Absolute Neutrophils Absolute Lymphocytes Absolute Monocytes Absolute Eosinophils Absolute Basophils PT 11.1 H INR 1.1 APTT 30.1 Sodium Potassium Chloride Carbon Dioxide Anion Gap BUN Creatinine Estimated GFR/1.73 m2 Glucose Lactate Calcium Total Bilirubin Conjugated Bilirubin AST ALT Alkaline Phosphatase Total Protein Albumin Lipase Urine Color Yellow Urine Clarity Sl cloudy Urine pH 6.0 Ur Specific [place] 1.010 Urine Protein 30 H Urine Ketones Negative Urine Blood Large H Urine Nitrite Negative Urine Bilirubin Small H Urine Urobilinogen 4.0 H Ur Leukocyte Esterase Negative Urine RBC 10-20 H Urine WBC 3-5 Ur Epithelial Cells Few Urine Crystals Negative Urine Bacteria Few Urine Casts Negative Urine Mucus Negative Ur Culture Indicated? Yes Urine Glucose Negative Last Vital Signs Temp 99.1 F 06/19/19 07:15 Pulse 84 06/19/19 07:15 Resp 18 06/19/19 07:15 BP 129/80 06/19/19 07:15 Pulse Ox 91 L 06/19/19 07:15 COVID-19 Screening Traveled to [place] from one of the affected countries or regions?: NO Recent travel in the [place] within the last 8 weeks?: No Recent out of the country travel within the last 8 weeks?: No Exposure or possible exposure to illness during travel?: No Had IN PERSON contact w/suspected or confirmed C-19 person: No Have you had the following symptoms in the past few days?: Yes Symptoms noted since travel?: Fever Medical treatment received for symptoms/illness related to travel?: infection post op of gallbladder
--- NOTE | 2019-06-19 09:16 | INITIAL_ITS ---
- If Service Date Differs Date of service: 06/19/19 Time of Service: 09:16 Care Management Initial Assess REASON FOR HOSPITALIZATION:: Intra abdominal infection PAST MEDICAL HISTORY/PAST SURGICAL HISTORY:: Medical History. Fibromyalgia. Gallstones (Acute). Gallstones without obstruction of gallbladder (Acute). GERD (gastroesophageal reflux disease). High cholesterol. Hypertension. Kidney stones. Surgical History. EGD - MAC (12/24/16). , Ectopic. Tonsillectomy PREVIOUS FUNCTIONAL STATUS/SOCIAL/FAMILY SUPPORTS:: Benny lives in [place] with her , Pola. They have a daughter, Rona, who lives near . They have another daughter who lives in [place] as well. 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 She is independent at baseline. CURRENT FUNCTIONAL STATUS:: Benny was sitting up in her chair when CM met with her. She was pleasant and engaged in conversation, although mentioned pain associated with coughing/laughing. She reported that per MD, she will have a procedure at [facility] [place], which she will travel down and back for. She stated that this experience makes her nervous about future surgeries, such as knee replacements which she expects to require eventually. She also stated that she does not have her glasses or phone. CM suggested that her family can drop these items off at the front door (per our no visitor policy due to Covid19), and CM would deliver them to her room. She was appreciative and stated she would call her daughter right away. CM relayed this information to the RN Trailer Truck Driver, who will collect the items at the door. CM will continue to follow. ADVANCE DIRECTIVES:: None on file. Has patient been provided with information about the portal?: No Did the patient sign up for the portal?: No CODE STATUS:: Full Code INSURANCE COVERAGE / FINANCIAL ISSUES:: [facility] Plan/ Financial Asst 85% CURRENT HOME/COMMUNITY SERVICES/EQUIPMENT:: Benny does not have services in the community currently. She has a cane and FWW which she uses occasionally. PRIMARY CARE PHYSICIAN:: Randa Galvez POTENTIAL DISCHARGE NEEDS:: Evaluations for further needs, follow up appointments PATIENT/FAMILY EDUCATION NEEDS:: Review discharge instructions regarding activity levels and medications, discussion of self care needs including ask me three ANTICIPATED BARRIERS TO DISCHARGE:: None identified. TRANSPORTATION:: Anticipate Benny's family will drive her home via private vehicle. PLAN:: Per MD, Benny will go to [facility] tomorrow for a procedure. She will travel down and back in one day, barring any complications. Anticipate she will return home when medically cleared. Her will drive her home via private vehcile when ready. She will follow up with Surgery and her PCP, as recommended. CM will continue to follow and support discharge planning considerations.
[2019-06-19] MEDS: Lisinopril 10 MG TAB PO (09:31)
[2019-06-19] MEDS: Gabapentin 300 MG CAP PO ×3 (09:31→19:46)
[2019-06-19] MEDS: Atenolol 50 MG TAB 100 MG PO (09:32)
[2019-06-19] MEDS: Pantoprazole 40 MG VIAL IVP (09:32)
[2019-06-19] MEDS: Sertraline 25 MG TAB PO (09:56)
[2019-06-19] MEDS: Furosemide 40 MG TAB PO (09:56)
[2019-06-19] MEDS: PIPERACILLIN/TAZO 3.375 GM in Normal Saline 100 ML IVPB ×3 (10:16→21:47)
--- NOTE | 2019-06-19 14:20 | DI.VRAD_ITS ---
PROCEDURE INFORMATION: Exam: NM Hepatobiliary Including Gallbladder When Present With Pharmacological intervention, CCK only Exam date and time: 06/19/2019 2:15 PM Age: 63 years old Clinical indication: Ruq pain; Prior surgery; Surgery date: 3-7 days post-operative; Surgery type: Lap neto; Patient HX: Abnormal CT, ? bile leak; Additional info: 4.4 [facility] mebrofenin TECHNIQUE: Imaging protocol: Hepatobiliary including gallbladder when present with pharmacological intervention. Including quantitative measurements when performed. COMPARISON: CT ABDOMEN PELVIS W 06/19/2019 12:48 AM FINDINGS: Normal uptake of radiotracer by the liver. Normal excretion into the biliary tree and small bowel. Gallbladder not visualized consistent with recent cholecystectomy. No extravasation of contrast material to suggest a bile leak. IMPRESSION: Normal post cholecystectomy cholecystogram. Dictated and Authenticated by: Torrey Coker MD. Ordering:MARTINA Madison MD
[2019-06-19] MEDS: Normal Saline Flush 10 ML SYR IVP (17:33)
[2019-06-20 03:30] VITALS: BP 165/90; PULSE 98; RESP 17; TEMP 38.3; O2SAT 94
[2019-06-20] MEDS: PIPERACILLIN/TAZO 3.375 GM in Normal Saline 100 ML IVPB ×4 (03:38→23:44)
[2019-06-20 06:46] LABS: Abs Immature Grans 0.03 k/cumm (0.0-0.09); Absolute Basophil Count 0.02 k/cumm (0.0-0.2); Absolute Eosinophil Count 0.06 k/cumm (0.0-0.7); Absolute Lymphocyte Count 0.79 k/cumm (1.2-3.4); Absolute Monocyte Count 0.72 k/cumm (0.11-0.7); Absolute Neutrophil Count 8.72 k/cumm (1.2-6.7); Basophils % 0.2; Eosinophils % 0.6; HCT 32.8 % (36.0-46.0); HGB 10.9 g/dL (12.0-15.5); Immature Grans % 0.3 %; Lymphocytes % 7.6; Mean Corp. HGB Concentration 33.2 g/dL (32.0-36.0); Mean Corpuscular Hemoglobin 30.6 pg (27.0-33.0); Mean Corpuscular Volume 92.1 fL (80-95); Mean Platelet Volume 12.6 fL (8.0-11.0); Neutrophils % 84.3; Platelet Count 179 x1000/uL (130-400); RBC 3.56 m/cumm (4.00-5.20); RBC Distribution Width 13.8 % (11.7-14.6); White Blood Cell Count 10.34 k/cumm (4.4-10.8)
[2019-06-20 06:56] LABS: ALT 32 U/L (14-59); AST 11 U/L (15-37); Albumin 2.5 g/dL (3.4-5.0); Alkaline Phosphatase 132 U/L (46-116); Anion Gap 9.1 mmol/L (3-11); BUN 9 mg/dL (7-18); Bilirubin, Total 0.9 mg/dL (0.2-1.0); CO2 24.9 mmol/L (21.0-32.0); CREATININE 0.88 mg/dL (0.55-1.02); Calcium 8.2 mg/dL (8.5-10.1); Chloride 104 mmol/L (98-107); Glucose 123 mg/dL (74-106); Magnesium 1.6 mg/dL (1.8-2.4); Potassium 3.1 mmol/L (3.5-5.1); Sodium 138 mmol/L (136-145); Total Protein 6.4 g/dL (6.4-8.2)
[2019-06-20 07:20] VITALS: BP 153/83; PULSE 90; RESP 17; TEMP 38.5; O2SAT 95
[2019-06-20] MEDS: Gabapentin 300 MG CAP PO ×2 (07:58→20:31)
[2019-06-20] MEDS: Atenolol 50 MG TAB 100 MG PO (07:59)
[2019-06-20] MEDS: Sertraline 25 MG TAB PO (07:59)
[2019-06-20] MEDS: Lisinopril 10 MG TAB PO (07:59)
[2019-06-20 09:02] VITALS: TEMP 38.5
[2019-06-20] MEDS: Acetaminophen 500 MG TAB 1000 MG PO (09:02)
[2019-06-20] MEDS: Pantoprazole 40 MG VIAL IVP (09:25)
[2019-06-20] MEDS: Normal Saline Flush 10 ML SYR IVP ×2 (09:26→18:24)
[2019-06-20] MEDS: Normal Saline Flush 10 ML SYR (09:28)
[2019-06-20] MEDS: MAGNESIUM SULFATE 4 GM/100 ML BAG IVPB ×2 (11:21→11:25)
[2019-06-20 11:30] VITALS: BP 109/61; PULSE 67; RESP 17; TEMP 36; O2SAT 98
--- NOTE | 2019-06-20 12:23 | CMPROGNOTE_ITS ---
- If Service Date Differs Date of service: 06/20/19 Time of Service: 12:40 Care Management Progress Note S/O: Benny is sitting in a chair when CM comes to meet with her. She shares she is in a lot of pain and has been febrile for several days now. Benny had a cholecystectomy last Thursday and has not felt good since. Benny is scheduled for a down and back [place] [facility] this afternoon for a CT guided drainage procedure and possible ERCP with stent placement. Dr. Miranda comes in to speak with Benny while CM is present in the room. Dr. Miranda advises patient she may have an infection and that more will be known after she comes back from [facility]. CM will continue to follow. A: Benny is a 63 year old female admitted to [facility] on 06/19/2019 for post operative intra-abdominal infection. P: Anticipate Benny will return home with no new services when medically cleared by provider. Her will transport her home via private vehicle when ready. CM will continue to support patient and any discharge needs.
--- NOTE | 2019-06-20 12:38 | PGE_ITS ---
Date of Service Date of service: 06/20/19 Time of Service: 12:38 Assessment and Plan Assessment and plan (1) Infected hematoma following procedure: Status: Acute Assessment and plan: cbc- nl mild anemia d/w pt this is most likelt postOP hematoma that has b/c infected. D/w her what to expect from the procedure today adn hospital course. d/w fellow at [facility]. I think she should still go for aspiration/drain. cont postop cares. Subjective Subjective Interval history since last seen: pt states last night she felt good. Less pain and had an appetite. However, she is still having temps. I reviewed w/ her findings at surgery- that she had a diffuse ooze in the GB fossa post-procedure. I did place x2 surgicell in the wound bed. There is some air in the GB fosa - this could be from the surgicell or from abscess. She doen't have a WBC #'s, but she is still having temps. She is going to [facility] for drainage today and possible drain placement, We d/w risks and benefits of this procedure. Exam Chest Chest: normal inspection of the chest Resp Effort & Inspection: normal respiratory effort and able to speak in complete sentences Auscultation: clear to auscultation bilaterally Cardio Rate: regular rate Rhythm: regular rhythm GI Other: tender in RUQ. no distention. no nausea. incisions C/D/I. +BS Extrem General: normal to inspection, no clubbing, cyanosis or edema and no calf tenderness Objective Objective Clinical Data: Abnormal lab results 06/20/19 06/20/19 Range/Units 06:25 06:25 RBC 3.56 L (4.00-5.20) m/cumm Hgb 10.9 L D (12.0-15.5) g/dL Hct 32.8 L (36.0-46.0) % MPV 12.6 H (8.0-11.0) fL Absolute Neutrophils 8.72 H (1.2-6.7) k/cumm Absolute Lymphocytes 0.79 L (1.2-3.4) k/cumm Absolute Monocytes 0.72 H (0.11-0.7) k/cumm Potassium 3.1 L (3.5-5.1) mmol/L Glucose 123 H (74-106) mg/dL Calcium 8.2 L (8.5-10.1) mg/dL Magnesium 1.6 L (1.8-2.4) mg/dL AST 11 L (15-37) U/L Alkaline Phosphatase 132 H (46-116) U/L Albumin 2.5 L (3.4-5.0) g/dL Vital Signs Temperature 38.5 C H 06/20/19 09:02 Temperature Source Tympanic 06/20/19 07:20 Pulse 90 06/20/19 07:20 Pulse Rhythm Irregular 06/20/19 09:49 Respiratory Rate 17 06/20/19 07:20 Respiratory Effort 06/20/19 09:49 Respiratory Depth Normal 06/20/19 09:49 Respiratory Pattern Normal 06/20/19 09:49 Blood Pressure 153/83 H 06/20/19 07:20 Blood Pressure Mean 74 06/19/19 02:16 Pulse Oximetry 95 06/20/19 07:20 Oxygen Delivery Method Room Air 06/20/19 07:20 Oxygen Flow Rate 0 06/20/19 07:20 Pain Level 4 06/20/19 07:20 Comment 06/20/19 07:20 Intake & Output 06/19/19 06/20/19 06/20/19 23:59 11:59 23:59 Intake Total 540 / 2640 100 / 100 Output Total 350 / 1050 300 / 300 Balance 190 / 1590 -200 / -200 Weight 113.8 kg Intake: IV 300 / 2400 100 / 100 Oral 240 / 240 0 / 0 Output: Urine 350 / 1050 300 / 300 Other: Urine Color Dark [place] Urine Appearance Cloudy Clear Urine Odor Normal Normal Comment slightly cloudy urine. patient uses toilet independently Voiding Methods Toilet Toilet Laboratory Results WBC 10.34 k/cumm (4.4-10.8) 06/20/19 06:25 RBC 3.56 m/cumm (4.00-5.20) L 06/20/19 06:25 Hgb 10.9 g/dL (12.0-15.5) L D 06/20/19 06:25 Hct 32.8 % (36.0-46.0) L 06/20/19 06:25 MCV 92.1 fL (80-95) 06/20/19 06:25 MCH 30.6 pg (27.0-33.0) 06/20/19 06:25 MCHC 33.2 g/dL (32.0-36.0) 06/20/19 06:25 RDW 13.8 % (11.7-14.6) 06/20/19 06:25 Plt Count 179 x1000/uL (130-400) 06/20/19 06:25 MPV 12.6 fL (8.0-11.0) H 06/20/19 06:25 Immature Gran % 0.3 % 06/20/19 06:25 Neutrophils % 84.3 06/20/19 06:25 Lymphocytes % 7.6 06/20/19 06:25 Monocytes % 7.0 06/20/19 06:25 Eosinophils % 0.6 06/20/19 06:25 Basophils % 0.2 06/20/19 06:25 Absolute Neutrophils 8.72 k/cumm (1.2-6.7) H 06/20/19 06:25 Absolute Lymphocytes 0.79 k/cumm (1.2-3.4) L 06/20/19 06:25 Absolute Monocytes 0.72 k/cumm (0.11-0.7) H 06/20/19 06:25 Absolute Eosinophils 0.06 k/cumm (0.0-0.7) 06/20/19 06:25 Absolute Basophils 0.02 k/cumm (0.0-0.2) 06/20/19 06:25 PT 11.1 sec (9.3-11.0) H 06/18/19 00:01 INR 1.1 (0.9-1.1) 06/18/19 00:01 APTT 30.1 sec (21.0-31.4) 06/18/19 00:01 Sodium 138 mmol/L (136-145) 06/20/19 06:25 Potassium 3.1 mmol/L (3.5-5.1) L 06/20/19 06:25 Chloride 104 mmol/L (98-107) 06/20/19 06:25 Carbon Dioxide 24.9 mmol/L (21.0-32.0) 06/20/19 06:25 Anion Gap 9.1 mmol/L (3-11) 06/20/19 06:25 BUN 9 mg/dL (7-18) 06/20/19 06:25 Creatinine 0.88 mg/dL (0.55-1.02) 06/20/19 06:25 Estimated GFR/1.73 m2 >= 60.00 (mL/min/1.73m2) 06/20/19 06:25 Glucose 123 mg/dL (74-106) H 06/20/19 06:25 Lactate 1.4 mmol/L (0.6-1.4) 06/18/19 00:01 Calcium 8.2 mg/dL (8.5-10.1) L 06/20/19 06:25 Magnesium 1.6 mg/dL (1.8-2.4) L 06/20/19 06:25 Total Bilirubin 0.9 mg/dL (0.2-1.0) 06/20/19 06:25 Conjugated Bilirubin 0.41 mg/dL (0.00-0.20) H 06/18/19 00:01 AST 11 U/L (15-37) L 06/20/19 06:25 ALT 32 U/L (14-59) 06/20/19 06:25 Alkaline Phosphatase 132 U/L (46-116) H 06/20/19 06:25 Total Protein 6.4 g/dL (6.4-8.2) 06/20/19 06:25 Albumin 2.5 g/dL (3.4-5.0) L 06/20/19 06:25 Lipase 41 U/L (73-393) 06/18/19 00:01 Urine Color Yellow (Yellow) 06/18/19 01:00 Urine Clarity Sl cloudy (Clear) 06/18/19 01:00 Urine pH 6.0 (5-8) 06/18/19 01:00 Ur Specific [place] 1.010 (1.005-1.025) 06/18/19 01:00 Urine Protein 30 mg/dL (Negative) H 06/18/19 01:00 Urine Ketones Negative mg/dL (Negative) 06/18/19 01:00 Urine Blood Large (Negative) H 06/18/19 01:00 Urine Nitrite Negative (Negative) 06/18/19 01:00 Urine Bilirubin Small (Negative) H 06/18/19 01:00 Urine Urobilinogen 4.0 EU/dL (Up TO 0.2) H 06/18/19 01:00 Ur Leukocyte Esterase Negative (Negative) 06/18/19 01:00 Urine RBC 10-20 HPF (0-2) H 06/18/19 01:00 Urine WBC 3-5 HPF (0-5) 06/18/19 01:00 Ur Epithelial Cells Few HPF (Negative) 06/18/19 01:00 Urine Crystals Negative HPF (Negative) 06/18/19 01:00 Urine Bacteria Few HPF (Negative) 06/18/19 01:00 Urine Casts Negative LPF (Negative) 06/18/19 01:00 Urine Mucus Negative (Negative) 06/18/19 01:00 Ur Culture Indicated? Yes 06/18/19 01:00 Urine Glucose Negative mg/dL (Negative) 06/18/19 01:00
[2019-06-20] MEDS: Ondansetron 4 MG/2 ML VIAL IVP (18:23)
[2019-06-20] MEDS: Normal Saline 1,000 ML 150 ML IV (18:33)
--- NOTE | 2019-06-20 18:44 | W.PM.PROGNOT ---
Date of Service Date of service: 06/20/19 Time of Service: 18:44 Assessment and Plan Assessment and plan (1) Infected hematoma following procedure: Status: Acute Assessment and plan: gram stain sent cont on zosyn until afeb for 24hrs hold further nsaids pain management and supportive postOp cares. Subjective Subjective Interval history since last seen: pt returned from IR drainage placement. She had 75cc of infected hematoma removed. gram stain shows: neutraphills and rare maciej + Rods. Objective Objective Clinical Data: Abnormal lab results 06/20/19 06/20/19 Range/Units 06:25 06:25 RBC 3.56 L (4.00-5.20) m/cumm Hgb 10.9 L D (12.0-15.5) g/dL Hct 32.8 L (36.0-46.0) % MPV 12.6 H (8.0-11.0) fL Absolute Neutrophils 8.72 H (1.2-6.7) k/cumm Absolute Lymphocytes 0.79 L (1.2-3.4) k/cumm Absolute Monocytes 0.72 H (0.11-0.7) k/cumm Potassium 3.1 L (3.5-5.1) mmol/L Glucose 123 H (74-106) mg/dL Calcium 8.2 L (8.5-10.1) mg/dL Magnesium 1.6 L (1.8-2.4) mg/dL AST 11 L (15-37) U/L Alkaline Phosphatase 132 H (46-116) U/L Albumin 2.5 L (3.4-5.0) g/dL Vital Signs Temperature 36.0 C L 06/20/19 11:30 Temperature Source Tympanic 06/20/19 11:30 Pulse 67 06/20/19 11:30 Pulse Rhythm Irregular 06/20/19 09:49 Respiratory Rate 17 06/20/19 11:30 Respiratory Effort 06/20/19 09:49 Respiratory Depth Normal 06/20/19 09:49 Respiratory Pattern Normal 06/20/19 09:49 Blood Pressure 109/61 06/20/19 11:30 Blood Pressure Mean 74 06/19/19 02:16 Pulse Oximetry 98 06/20/19 11:30 Oxygen Delivery Method Room Air 06/20/19 11:30 Oxygen Flow Rate 0 06/20/19 11:30 Pain Level 5 06/20/19 11:30 Comment 06/20/19 07:20 Intake & Output 06/19/19 06/20/19 06/20/19 23:59 11:59 23:59 Intake Total 1540 / 3640 100 / 300 200 / 300 Output Total 350 / 1050 300 / 300 Balance 1190 / 2590 -200 / 0 200 / 0 Weight 113.8 kg Intake: IV 1300 / 3400 100 / 300 200 / 300 Oral 240 / 240 0 / 0 Output: Urine 350 / 1050 300 / 300 Other: Urine Color Dark [place] Dark [place] Brown Urine Appearance Cloudy Clear Urine Odor Normal Normal Comment slightly cloudy urine. patient uses toilet independently Voiding Methods Toilet Toilet Laboratory Results WBC 10.34 k/cumm (4.4-10.8) 06/20/19 06:25 RBC 3.56 m/cumm (4.00-5.20) L 06/20/19 06:25 Hgb 10.9 g/dL (12.0-15.5) L D 06/20/19 06:25 Hct 32.8 % (36.0-46.0) L 06/20/19 06:25 MCV 92.1 fL (80-95) 06/20/19 06:25 MCH 30.6 pg (27.0-33.0) 06/20/19 06:25 MCHC 33.2 g/dL (32.0-36.0) 06/20/19 06:25 RDW 13.8 % (11.7-14.6) 06/20/19 06:25 Plt Count 179 x1000/uL (130-400) 06/20/19 06:25 MPV 12.6 fL (8.0-11.0) H 06/20/19 06:25 Immature Gran % 0.3 % 06/20/19 06:25 Neutrophils % 84.3 06/20/19 06:25 Lymphocytes % 7.6 06/20/19 06:25 Monocytes % 7.0 06/20/19 06:25 Eosinophils % 0.6 06/20/19 06:25 Basophils % 0.2 06/20/19 06:25 Absolute Neutrophils 8.72 k/cumm (1.2-6.7) H 06/20/19 06:25 Absolute Lymphocytes 0.79 k/cumm (1.2-3.4) L 06/20/19 06:25 Absolute Monocytes 0.72 k/cumm (0.11-0.7) H 06/20/19 06:25 Absolute Eosinophils 0.06 k/cumm (0.0-0.7) 06/20/19 06:25 Absolute Basophils 0.02 k/cumm (0.0-0.2) 06/20/19 06:25 PT 11.1 sec (9.3-11.0) H 06/18/19 00:01 INR 1.1 (0.9-1.1) 06/18/19 00:01 APTT 30.1 sec (21.0-31.4) 06/18/19 00:01 Sodium 138 mmol/L (136-145) 06/20/19 06:25 Potassium 3.1 mmol/L (3.5-5.1) L 06/20/19 06:25 Chloride 104 mmol/L (98-107) 06/20/19 06:25 Carbon Dioxide 24.9 mmol/L (21.0-32.0) 06/20/19 06:25 Anion Gap 9.1 mmol/L (3-11) 06/20/19 06:25 BUN 9 mg/dL (7-18) 06/20/19 06:25 Creatinine 0.88 mg/dL (0.55-1.02) 06/20/19 06:25 Estimated GFR/1.73 m2 >= 60.00 (mL/min/1.73m2) 06/20/19 06:25 Glucose 123 mg/dL (74-106) H 06/20/19 06:25 Lactate 1.4 mmol/L (0.6-1.4) 06/18/19 00:01 Calcium 8.2 mg/dL (8.5-10.1) L 06/20/19 06:25 Magnesium 1.6 mg/dL (1.8-2.4) L 06/20/19 06:25 Total Bilirubin 0.9 mg/dL (0.2-1.0) 06/20/19 06:25 Conjugated Bilirubin 0.41 mg/dL (0.00-0.20) H 06/18/19 00:01 AST 11 U/L (15-37) L 06/20/19 06:25 ALT 32 U/L (14-59) 06/20/19 06:25 Alkaline Phosphatase 132 U/L (46-116) H 06/20/19 06:25 Total Protein 6.4 g/dL (6.4-8.2) 06/20/19 06:25 Albumin 2.5 g/dL (3.4-5.0) L 06/20/19 06:25 Lipase 41 U/L (73-393) 06/18/19 00:01 Urine Color Yellow (Yellow) 06/18/19 01:00 Urine Clarity Sl cloudy (Clear) 06/18/19 01:00 Urine pH 6.0 (5-8) 06/18/19 01:00 Ur Specific [place] 1.010 (1.005-1.025) 06/18/19 01:00 Urine Protein 30 mg/dL (Negative) H 06/18/19 01:00 Urine Ketones Negative mg/dL (Negative) 06/18/19 01:00 Urine Blood Large (Negative) H 06/18/19 01:00 Urine Nitrite Negative (Negative) 06/18/19 01:00 Urine Bilirubin Small (Negative) H 06/18/19 01:00 Urine Urobilinogen 4.0 EU/dL (Up TO 0.2) H 06/18/19 01:00 Ur Leukocyte Esterase Negative (Negative) 06/18/19 01:00 Urine RBC 10-20 HPF (0-2) H 06/18/19 01:00 Urine WBC 3-5 HPF (0-5) 06/18/19 01:00 Ur Epithelial Cells Few HPF (Negative) 06/18/19 01:00 Urine Crystals Negative HPF (Negative) 06/18/19 01:00 Urine Bacteria Few HPF (Negative) 06/18/19 01:00 Urine Casts Negative LPF (Negative) 06/18/19 01:00 Urine Mucus Negative (Negative) 06/18/19 01:00 Ur Culture Indicated? Yes 06/18/19 01:00 Urine Glucose Negative mg/dL (Negative) 06/18/19 01:00
[2019-06-20 18:57] VITALS: BP 150/88; PULSE 81; RESP 18; TEMP 37.9; O2SAT 94
[2019-06-20] MEDS: POTASSIUM CHLORIDE 10 MEQ/100 ML BAG 100 MEQ IVPB ×2 (20:31→22:09)
[2019-06-20] MEDS: Psyllium PKT 1 EACH PO (20:31)
[2019-06-20] MEDS: traMADol 50 MG TAB PO (20:49)
[2019-06-20] MEDS: Lactobacillus Acidophilus CAP 1 CAP PO (22:09)
[2019-06-20 22:50] VITALS: BP 156/91; PULSE 68; RESP 19; TEMP 36.8; O2SAT 96
[2019-06-21] VITALS (7 sets, daily range): BP systolic 143–166; BP diastolic 79–100; PULSE 72–82; RESP 16–20; TEMP 36.6–38; O2SAT 91–100
[2019-06-21] MEDS: PIPERACILLIN/TAZO 3.375 GM in Normal Saline 100 ML IVPB ×3 (05:55→19:41)
[2019-06-21 07:35] LABS: Abs Immature Grans 0.03 k/cumm (0.0-0.09); Absolute Basophil Count 0.01 k/cumm (0.0-0.2); Absolute Eosinophil Count 0.21 k/cumm (0.0-0.7); Absolute Lymphocyte Count 0.93 k/cumm (1.2-3.4); Absolute Monocyte Count 0.65 k/cumm (0.11-0.7); Absolute Neutrophil Count 7.78 k/cumm (1.2-6.7); Basophils % 0.1; Eosinophils % 2.2; HCT 31.5 % (36.0-46.0); HGB 10.5 g/dL (12.0-15.5); Immature Grans % 0.3 %; Lymphocytes % 9.7; Mean Corp. HGB Concentration 33.3 g/dL (32.0-36.0); Mean Corpuscular Hemoglobin 30.9 pg (27.0-33.0); Mean Corpuscular Volume 92.6 fL (80-95); Mean Platelet Volume 12.4 fL (8.0-11.0); Monocytes % 6.8; Neutrophils % 80.9; Platelet Count 205 x1000/uL (130-400); RBC Distribution Width 13.9 % (11.7-14.6); White Blood Cell Count 9.61 k/cumm (4.4-10.8)
[2019-06-21 07:55] LABS: Anion Gap 10.4 mmol/L (3-11); BUN 10 mg/dL (7-18); CO2 23.6 mmol/L (21.0-32.0); CREATININE 0.71 mg/dL (0.55-1.02); Calcium 8.2 mg/dL (8.5-10.1); Chloride 103 mmol/L (98-107); Glucose 88 mg/dL (74-106); Magnesium 1.9 mg/dL (1.8-2.4); Potassium 3.4 mmol/L (3.5-5.1); Sodium 137 mmol/L (136-145)
[2019-06-21] MEDS: Atenolol 50 MG TAB 100 MG PO (09:02)
[2019-06-21] MEDS: Lactobacillus Acidophilus CAP 1 CAP PO ×2 (09:02→19:40)
[2019-06-21] MEDS: Furosemide 40 MG TAB PO (09:02)
[2019-06-21] MEDS: Sertraline 25 MG TAB PO (09:03)
[2019-06-21] MEDS: Lisinopril 10 MG TAB PO (09:03)
[2019-06-21] MEDS: Gabapentin 300 MG CAP PO ×3 (09:03→19:40)
[2019-06-21] MEDS: Polyethylene Glycol 3350 17 GM PACKET PO (09:03)
[2019-06-21] MEDS: Normal Saline Flush 10 ML SYR IVP ×3 (09:04→19:51)
[2019-06-21] MEDS: Pantoprazole 40 MG VIAL IVP (10:38)
--- NOTE | 2019-06-21 11:04 | W.NUTCONSULT ---
Date of service: 06/21/19 Time of Service: 11:04 Nutritional Consult ASSESSMENT: 63 year old male s/p surgery for infected hematoma, s/p lap neto last week. Has been advanced to clear liquid diet, tolerating, expect will advance to regular diet later today. BMI indicates obesity. Will continue to monitor for risk of nutritional decline. At this time appears nutritionally stable. MONITORING AND EVALUATION: weight, po intake, labs Time Spent in Nutritional Counseling and Treatment: 0 time spent face to face
--- NOTE | 2019-06-21 13:34 | W.PM.PROGNOT ---
Date of Service Date of service: 06/21/19 Time of Service: 09:00 Assessment and Plan Assessment and plan (1) Infected hematoma following procedure: Status: Acute Assessment and plan: A/P: Encouraged activity OOB. Ordered PT consult for transfer training and strengthening. Patient tolerating clear liquid diet. Low grade temp this morning. Continue IV antibiotics. culture pending Subjective Subjective Interval history since last seen: Patient reports that she is feeling a little better today with complaints of abdominal soreness and hot spells. Exam Const General: cooperative, healthy appearing and comfortable Orientation: alert and oriented x3 Resp Effort & Inspection: normal respiratory effort, no audible wheezes and no cough GI Inspection: normal to inspection and non-distended Palpation: soft, no guarding and tender Other: Drain in place with dark/old blood in bulb. Objective Objective Clinical Data: Abnormal lab results 06/21/19 06/21/19 Range/Units 07:21 07:21 RBC 3.40 L (4.00-5.20) m/cumm Hgb 10.5 L (12.0-15.5) g/dL Hct 31.5 L (36.0-46.0) % MPV 12.4 H (8.0-11.0) fL Absolute Neutrophils 7.78 H (1.2-6.7) k/cumm Absolute Lymphocytes 0.93 L (1.2-3.4) k/cumm Potassium 3.4 L (3.5-5.1) mmol/L Calcium 8.2 L (8.5-10.1) mg/dL Vital Signs Temperature 38 C H 06/21/19 07:13 Temperature Source Temporal Artery Scan 06/21/19 07:13 Pulse 82 06/21/19 07:13 Pulse Rhythm Regular 06/21/19 08:14 Respiratory Rate 18 06/21/19 07:13 Respiratory Effort 06/21/19 08:14 Respiratory Depth Normal 06/21/19 08:14 Respiratory Pattern Normal 06/21/19 08:14 Blood Pressure 145/79 H 06/21/19 07:13 Blood Pressure Mean 74 06/19/19 02:16 Pulse Oximetry 92 L 06/21/19 07:13 Oxygen Delivery Method Room Air 06/21/19 07:13 Oxygen Flow Rate 0 06/21/19 07:13 Pain Level 5 06/21/19 08:10 Comment 06/20/19 07:20 Intake & Output 06/20/19 06/21/19 06/21/19 18:59 06:59 18:59 Intake Total 152.083 / 452.083 300 / 452.083 425 / 425 Output Total 275 / 275 200 / 200 Balance 152.083 / 177.083 25 / 177.083 225 / 225 Weight 113.8 kg 114.9 kg Intake: IV 152.083 / 452.083 300 / 452.083 420 / 420 Injectate 5 / 5 Right Upper Abdomen 5 / 5 Output: Drainage 75 / 75 Right Upper Abdomen 75 / 75 Urine 200 / 200 200 / 200 Other: Urine Color Brown Dark [place] Yellow Urine Appearance Clear Clear Clear Urine Odor Normal Stool Size Small Stool Characteristics Brown Voiding Methods Toilet Toilet Laboratory Results WBC 9.61 k/cumm (4.4-10.8) 06/21/19 07:21 RBC 3.40 m/cumm (4.00-5.20) L 06/21/19 07:21 Hgb 10.5 g/dL (12.0-15.5) L 06/21/19 07:21 Hct 31.5 % (36.0-46.0) L 06/21/19 07:21 MCV 92.6 fL (80-95) 06/21/19 07:21 MCH 30.9 pg (27.0-33.0) 06/21/19 07:21 MCHC 33.3 g/dL (32.0-36.0) 06/21/19 07:21 RDW 13.9 % (11.7-14.6) 06/21/19 07:21 Plt Count 205 x1000/uL (130-400) 06/21/19 07:21 MPV 12.4 fL (8.0-11.0) H 06/21/19 07:21 Immature Gran % 0.3 % 06/21/19 07:21 Neutrophils % 80.9 06/21/19 07:21 Lymphocytes % 9.7 06/21/19 07:21 Monocytes % 6.8 06/21/19 07:21 Eosinophils % 2.2 06/21/19 07:21 Basophils % 0.1 06/21/19 07:21 Absolute Neutrophils 7.78 k/cumm (1.2-6.7) H 06/21/19 07:21 Absolute Lymphocytes 0.93 k/cumm (1.2-3.4) L 06/21/19 07:21 Absolute Monocytes 0.65 k/cumm (0.11-0.7) 06/21/19 07:21 Absolute Eosinophils 0.21 k/cumm (0.0-0.7) 06/21/19 07: Absolute Basophils 0.01 k/cumm (0.0-0.2) 06/21/19 07:21 PT 11.1 sec (9.3-11.0) H 06/18/19 00:01 INR 1.1 (0.9-1.1) 06/18/19 00:01 APTT 30.1 sec (21.0-31.4) 06/18/19 00:01 Sodium 137 mmol/L (136-145) 06/21/19 07:21 Potassium 3.4 mmol/L (3.5-5.1) L 06/21/19 07:21 Chloride 103 mmol/L (98-107) 06/21/19 07:21 Carbon Dioxide 23.6 mmol/L (21.0-32.0) 06/21/19 07:21 Anion Gap 10.4 mmol/L (3-11) 06/21/19 07:21 BUN 10 mg/dL (7-18) 06/21/19 07:21 Creatinine 0.71 mg/dL (0.55-1.02) 06/21/19 07:21 Estimated GFR/1.73 m2 >= 60.00 (mL/min/1.73m2) 06/21/19 07:21 Glucose 88 mg/dL (74-106) 06/21/19 07:21 Lactate 1.4 mmol/L (0.6-1.4) 06/18/19 00:01 Calcium 8.2 mg/dL (8.5-10.1) L 06/21/19 07:21 Magnesium 1.9 mg/dL (1.8-2.4) 06/21/19 07:21 Total Bilirubin 0.9 mg/dL (0.2-1.0) 06/20/19 06:25 Conjugated Bilirubin 0.41 mg/dL (0.00-0.20) H 06/18/19 00:01 AST 11 U/L (15-37) L 06/20/19 06:25 ALT 32 U/L (14-59) 06/20/19 06:25 Alkaline Phosphatase 132 U/L (46-116) H 06/20/19 06:25 Total Protein 6.4 g/dL (6.4-8.2) 06/20/19 06:25 Albumin 2.5 g/dL (3.4-5.0) L 06/20/19 06:25 Lipase 41 U/L (73-393) 06/18/19 00:01 Urine Color Yellow (Yellow) 06/18/19 01:00 Urine Clarity Sl cloudy (Clear) 06/18/19 01:00 Urine pH 6.0 (5-8) 06/18/19 01:00 Ur Specific [place] 1.010 (1.005-1.025) 06/18/19 01:00 Urine Protein 30 mg/dL (Negative) H 06/18/19 01:00 Urine Ketones Negative mg/dL (Negative) 06/18/19 01:00 Urine Blood Large (Negative) H 06/18/19 01:00 Urine Nitrite Negative (Negative) 06/18/19 01:00 Urine Bilirubin Small (Negative) H 06/18/19 01:00 Urine Urobilinogen 4.0 EU/dL (Up TO 0.2) H 06/18/19 01:00 Ur Leukocyte Esterase Negative (Negative) 06/18/19 01:00 Urine RBC 10-20 HPF (0-2) H 06/18/19 01:00 Urine WBC 3-5 HPF (0-5) 06/18/19 01:00 Ur Epithelial Cells Few HPF (Negative) 06/18/19 01:00 Urine Crystals Negative HPF (Negative) 06/18/19 01:00 Urine Bacteria Few HPF (Negative) 06/18/19 01:00 Urine Casts Negative LPF (Negative) 06/18/19 01:00 Urine Mucus Negative (Negative) 06/18/19 01:00 Ur Culture Indicated? Yes 06/18/19 01:00 Urine Glucose Negative mg/dL (Negative) 06/18/19 01:00
--- NOTE | 2019-06-21 13:52 | CMPROGNOTE_ITS ---
- If Service Date Differs Date of service: 06/21/19 Time of Service: 13:52 Care Management Progress Note S/O: Benny is sleeping when CM comes to meet with her today. She has had difficulty sleeping since being at the hospital, so CM makes the decision to not wake her up. Benny had a stent placed at [facility] yesterday. According to her chart, she is feeling better today but reports abdominal soreness. She continues to be febrile and is on a course of antibiotics while awaiting the results of the culture done at [facility]. A PT evaluation for transfer training and strengthening has been ordered. CM will continue to follow. A: Benny is a 63 year old female admitted to [facility] on 06/19/2019 for post operative intraabdominal infection. P: Anticipate Benny will be discharged home with no new services when ready. Her will transport her home via private vehicle upon discharge. CM will continue to support patient and discharge planning needs.
--- NOTE | 2019-06-21 14:22 | PT.INIE ---
Date of service: 06/21/19 Time of Service: 14:00 PT Notes Visit Reasons: POST OPERATIVE INTRABDOMINAL INFECTION Inpatient Physical Therapy Evaluation Date: June 21, 2019 Referring Doctor: Rajani Jin PT Orders: PT CONSULT: Eval and treat transfer training Precautions: Standard Patient Profile/Admitting Diagnosis: Benny is a 63 year old female s/p Laparoscopic Cholecystectomy, when she started having some low grade fevers on Thursday afternoon. Symptoms progressed with increasing pain and was admitted to the hospital on 06/19/2019 s/p diagnosis of post operative intraabdominal infection. PMHX: Fibromyalgia. Gallstones (Acute). Gallstones without obstruction of gallbladder (Acute). GERD (gastroesophageal reflux disease). High cholesterol. Hypertension. Kidney stones. Surgical History. EGD - MAC (12/24/16). , Ectopic. Tonsillectomy. Benny notes that she has OA of bilateral knees and is in need of bilateral TKA, she also has a bad right shoulder that needs repair. Social History/Home Situation: Benny lives in [place] with her , Pola. They have a daughter, Rona, who lives near . They have another daughter who lives in [place] as well. 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 She is independent at baseline with occasional use of a walker secondary to her knee pain. She does report of 3-4 steps to enter her home. Otherwise her home is one level living. She notes that the laundry is in the basement however her has been doing this chore due to her knees as well. Current Functional Limitations: Worried about being able to be independent with getting into and out of bed on her own due to her 's cardiac history she does not want him to have to pull and tug on her. Equipment Owned/DME: Walker, cane Subjective: Benny was lying in bed on her left side at time of PT consult. She was agreeable to consult this PM. Objective: General Observation: IV right UE Mental Status: Alert and oriented x3. Very pleasant Pain: 0/10 at rest, 2-3/10 with transfers and mobility ROM: Right Upper Extremity: Shoulder flexion limited to 90 degrees, abduction to 150 degrees, ER to 30 degrees, and IR functional reach to side. Elbow/wrist/ hand WNL Left Upper Extremity: Demonstrates grossly full L UE ROM without pain Right Lower Extremity: Hip flexion 100 degrees, knee flexion 105 degrees lying in bed, lacking 10 degrees of terminal knee extension. WNL ankle ROM Left Lower Extremity: Hip flexion 100 degrees, knee flexion 110 degrees lying in bed, lacking 5 degrees of terminal knee extension, Ankle ROM WNL Strength: Right Upper Extremity: Shoulder Flexion 3+/5 with pain, abduction 4/5, ER 3/5, Bicep 4+/5, Tricep 4+/5, Good functional grasp Left Upper Extremity: Shoulder flexion 4+/5, abduction 4+/5,ER 4+/5, Bicep 5/5, Tricep 5/5, Good functional grasp Right Lower Extremity: Hip flexion N/T due to recent abdominal surgery, Knee flexion 4/5, knee extension 4+/5, DF/PF 5/5 Left Lower Extremity: Hip flexion N/T due to recent abdominal surgery, Knee flexion 4/5, knee extension 4+/5, DF/PF 5/5 Sensation: Intact to light touch Bed Mobility/Transfers: Rolling: I Supine-sit: HOB 20 degrees S with cueing on arm placement utilizing log roll technique Sit-supine: HOB 10 degrees S with cueing on log roll technique Sit-stand: S with FWW Stand-sit: S Gait: Utilized FWW 25ftx2, S Balance: Static Sitting: Normal Dynamic Sitting: Normal Static Standing: Good Dynamic Standing: Good Special Tests: Mobility Limitations Standardized Measure [facility] AM-PAC 6 clicks Basic Mobility Inpatient Short Form: Raw Score: 22 Standardized Score: 53.28 CMS Score: 20.91 % [facility] Modifier: CJ Informed Consent/Education: Patient instructed in purpose of PT consult and plan of care. Assessment: Patient is a 63 year old female referred to physical therapy services with the diagnosis of post operative intraabdominal infection. Patient presents with clinical signs and symptoms consistent with diagnosis, as demonstrated by the following impairment level findings: impaired core strength due to recent abdominal surgery, right shoulder weakness due to OA, and bilateral knee OA with limited ROM and strength. Impairments are contributing to the following functional limitations: transfer ability to get out of bed, decreased functional mobility and endurance Patient is assessed as a Low 50819 complexity based on the following: History: As above Examination: As above Presentation: Stable Decision Making: Low Goals: Goals X1 week 1. Supine-Sit I 2. Sit-Supine I 3. Sit-Stand I 4. Stand-Sit I 5. Bed-Chair I 6. Chair-Bed I 7. Gait I 100 ftx2 or greater without difficulty 8. Stairs ascend/descend 3-4 stairs with use of railings, S Plan of Care/Treatment Plan: 1-2x/day, 7 days/week x 1 week. Plan of care has been reviewed with the PRODUCT TECHNOLOGY SCIENTIST providing the service under Physical Therapy direction. Initiate Physical Therapy intervention for strengthening, bed mobility, transfers, gait, stairs, balance training, use of assistive device as needed to promote discharge home upon MD order. DISCHARGE RECOMMENDATIONS: Home to family TREATMENT CODE/TIME: 61367, 25 minutes, 14:00PM Thank you for this PT consult. Luz Huffman, MPT
[2019-06-21] MEDS: Metoprolol 5 MG/5 ML VIAL 2.5 MG IVP (15:50)
--- NOTE | 2019-06-21 16:07 | CHAPLAIN ---
I had a brief visit with Benny. She was in the middle of making phone calls. I explained my role and offered support. I will visit again tomorrow.
[2019-06-21] MEDS: Psyllium PKT 1 EACH PO (19:41)
[2019-06-22] MEDS: PIPERACILLIN/TAZO 3.375 GM in Normal Saline 100 ML IVPB ×4 (02:14→21:01)
[2019-06-22] MEDS: Normal Saline Flush 10 ML SYR IVP ×3 (02:16→14:24)
[2019-06-22 03:16] VITALS: BP 168/82; PULSE 79; RESP 18; TEMP 37.3; O2SAT 93
[2019-06-22 07:15] VITALS: BP 154/90; PULSE 74; RESP 16; TEMP 37; O2SAT 93
[2019-06-22 07:30] VITALS: BP 125/78; PULSE 62; RESP 22; TEMP 35.8; O2SAT 96
[2019-06-22] MEDS: Sertraline 25 MG TAB PO (08:22)
[2019-06-22] MEDS: Lactobacillus Acidophilus CAP 1 CAP PO ×2 (08:23→21:01)
[2019-06-22] MEDS: Furosemide 40 MG TAB PO (08:23)
[2019-06-22] MEDS: Atenolol 50 MG TAB 100 MG PO (08:24)
[2019-06-22] MEDS: Gabapentin 300 MG CAP PO ×3 (08:24→21:01)
[2019-06-22] MEDS: Psyllium PKT 1 EACH PO (08:25)
[2019-06-22] MEDS: Omeprazole 20 MG CAPCR PO (08:26)
[2019-06-22] MEDS: Lisinopril 10 MG TAB PO (08:26)
--- NOTE | 2019-06-22 09:04 | W.PM.PROGNOT ---
Documented by User: DENI Silva 06/22/19 09:07 Date of Service Date of service: 06/22/19 Time of Service: 08:00 Assessment and Plan Assessment and plan (1) Infected hematoma following procedure: Status: Acute Assessment and plan: A/P: Continue with PT and activity OOB as tolerated. Encouraged use of incentive spirometer also. IV fluids have been D/C'd. Subjective Subjective Interval history since last seen: Benny reports that she is feeling well today. Expressed some concerns for SOB with exertion when getting OOB and walking to/from the restroom. She expresses some mild discomfort in her RUQ. Exam Const General: cooperative, healthy appearing and comfortable Orientation: alert and oriented x3 Resp Effort & Inspection: normal respiratory effort, no audible wheezes and no cough GI Inspection: normal to inspection and non-distended Other: Minimal drainage in drain appears like old blood. Objective Objective Clinical Data: Vital Signs Temperature 37.3 C 06/22/19 03:16 Temperature Source Tympanic 06/22/19 03:16 Pulse 79 06/22/19 03:16 Pulse Rhythm Regular 06/21/19 19:40 Respiratory Rate 18 06/22/19 03:16 Respiratory Effort 06/22/19 02:55 Respiratory Depth Normal 06/22/19 02:55 Respiratory Pattern Normal 06/22/19 02:55 Blood Pressure 168/82 H 06/22/19 03:16 Blood Pressure Mean 74 06/19/19 02:16 Pulse Oximetry 93 L 06/22/19 03:16 Oxygen Delivery Method Room Air 06/22/19 03:16 Oxygen Flow Rate 0 06/22/19 03:16 Pain Level 2 06/22/19 03:16 Comment 06/20/19 07:20 Intake & Output 06/21/19 06/22/19 06/22/19 18:59 06:59 18:59 Intake Total 665 / 1095 430 / 1095 0 / 0 Output Total 240 / 1018 778 / 1018 Balance 425 / 77 -348 / 77 0 / 0 Weight 114.8 kg Intake: IV 420 / 590 170 / 590 0 / 0 Oral 240 / 490 250 / 490 Injectate Right Upper Abdomen Output: Drainage Right Upper Abdomen Urine 200 / 950 750 / 950 Other: Urine Color Yellow Yellow Urine Appearance Clear Clear Urine Odor Normal None Stool Size Small Moderate Stool Characteristics Brown Soft Formed Voiding Methods Toilet Toilet Laboratory Results WBC 9.61 k/cumm (4.4-10.8) 06/21/19 07:21 RBC 3.40 m/cumm (4.00-5.20) L 06/21/19 07:21 Hgb 10.5 g/dL (12.0-15.5) L 06/21/19 07:21 Hct 31.5 % (36.0-46.0) L 06/21/19 07:21 MCV 92.6 fL (80-95) 06/21/19 07:21 MCH 30.9 pg (27.0-33.0) 06/21/19 07:21 MCHC 33.3 g/dL (32.0-36.0) 06/21/19 07:21 RDW 13.9 % (11.7-14.6) 06/21/19 07:21 Plt Count 205 x1000/uL (130-400) 06/21/19 07:21 MPV 12.4 fL (8.0-11.0) H 06/21/19 07:21 Immature Gran % 0.3 % 06/21/19 07:21 Neutrophils % 80.9 06/21/19 07:21 Lymphocytes % 9.7 06/21/19 07:21 Monocytes % 6.8 06/21/19 07:21 Eosinophils % 2.2 06/21/19 07:21 Basophils % 0.1 06/21/19 07:21 Absolute Neutrophils 7.78 k/cumm (1.2-6.7) H 06/21/19 07:21 Absolute Lymphocytes 0.93 k/cumm (1.2-3.4) L 06/21/19 07:21 Absolute Monocytes 0.65 k/cumm (0.11-0.7) 06/21/19 07:21 Absolute Eosinophils 0.21 k/cumm (0.0-0.7) 06/21/19 07:21 Absolute Basophils 0.01 k/cumm (0.0-0.2) 06/21/19 07:21 PT 11.1 sec (9.3-11.0) H 06/18/19 00:01 INR 1.1 (0.9-1.1) 06/18/19 00:01 APTT 30.1 sec (21.0-31.4) 06/18/19 00:01 Sodium 137 mmol/L (136-145) 06/21/19 07:21 Potassium 3.4 mmol/L (3.5-5.1) L 06/21/19 07:21 Chloride 103 mmol/L (98-107) 06/21/19 07:21 Carbon Dioxide 23.6 mmol/L (21.0-32.0) 06/21/19 07:21 Anion Gap 10.4 mmol/L (3-11) 06/21/19 07:21 BUN 10 mg/dL (7-18) 06/21/19 07:21 Creatinine 0.71 mg/dL (0.55-1.02) 06/21/19 07:21 Estimated GFR/1.73 m2 >= 60.00 (mL/min/1.73m2) 06/21/19 07:21 Glucose 88 mg/dL (74-106) 06/21/19 07:21 Lactate 1.4 mmol/L (0.6-1.4) 06/18/19 00:01 Calcium 8.2 mg/dL (8.5-10.1) L 06/21/19 07:21 Magnesium 1.9 mg/dL (1.8-2.4) 06/21/19 07:21 Total Bilirubin 0.9 mg/dL (0.2-1.0) 06/20/19 06:25 Conjugated Bilirubin 0.41 mg/dL (0.00-0.20) H 06/18/19 00:01 AST 11 U/L (15-37) L 06/20/19 06:25 ALT 32 U/L (14-59) 06/20/19 06:25 Alkaline Phosphatase 132 U/L (46-116) H 06/20/19 06:25 Total Protein 6.4 g/dL (6.4-8.2) 06/20/19 06:25 Albumin 2.5 g/dL (3.4-5.0) L 06/20/19 06:25 Lipase 41 U/L (73-393) 06/18/19 00:01 Urine Color Yellow (Yellow) 06/18/19 01:00 Urine Clarity Sl cloudy (Clear) 06/18/19 01:00 Urine pH 6.0 (5-8) 06/18/19 01:00 Ur Specific [place] 1.010 (1.005-1.025) 06/18/19 01:00 Urine Protein 30 mg/dL (Negative) H 06/18/19 01:00 Urine Ketones Negative mg/dL (Negative) 06/18/19 01:00 Urine Blood Large (Negative) H 06/18/19 01:00 Urine Nitrite Negative (Negative) 06/18/19 01:00 Urine Bilirubin Small (Negative) H 06/18/19 01:00 Urine Urobilinogen 4.0 EU/dL (Up TO 0.2) H 06/18/19 01:00 Ur Leukocyte Esterase Negative (Negative) 06/18/19 01:00 Urine RBC 10-20 HPF (0-2) H 06/18/19 01:00 Urine WBC 3-5 HPF (0-5) 06/18/19 01:00 Ur Epithelial Cells Few HPF (Negative) 06/18/19 01:00 Urine Crystals Negative HPF (Negative) 06/18/19 01:00 Urine Bacteria Few HPF (Negative) 06/18/19 01:00 Urine Casts Negative LPF (Negative) 06/18/19 01:00 Urine Mucus Negative (Negative) 06/18/19 01:00 Ur Culture Indicated? Yes 06/18/19 01:00 Urine Glucose Negative mg/dL (Negative) 06/18/19 01:00 Documented by User: Belen Miranda DO 06/22/19 19:27 Assessment and Plan Assessment and plan (1) Infected hematoma following procedure: Status: Acute Assessment and plan: cultures from [facility] show: mod. moderate mixed gram negatives. awaiting final for abx choice wbc- nl. RN's note no temps. pt reports walking up drenched in sweat needs to be up walking more
[2019-06-22 11:30] VITALS: BP 140/78; PULSE 69; RESP 18; TEMP 37.1; O2SAT 95
--- NOTE | 2019-06-22 11:48 | PTTR_ITS ---
Date of service: 06/22/19 Time of Service: 07:55 PT Notes Visit Reasons: POST OPERATIVE INTRABDOMINAL INFECTION Inpatient Physical Therapy Treatment Note [facility] Date: June 22, 2019 PRECAUTIONS:Standard SUBJECTIVE: Benny notes that she overall is feeling better however remains concerned with her shortness of breath with any functional activity. She notes that she gets up to go to the bathroom and feels that it is a chore. Overall is noting definite improvements in her ability to transfer with less difficulty. Unsure if she is going home today or tomorrow. Would like to discuss her SOB with her doctor. OBJECTIVE: PAIN: 0-2/10 BED MOBILITY/TRANSFERS Rolling L/R: I HOB 0 degrees Supine-sit: I HOB 0 degrees Sit-supine: I Sit-stand: Supervision in AM, Independent PM Stand-sit: I Bed-Chair: Supervision in AM, Independent PM Chair-bed: Independent PM GAIT Assistive Device: N/A Weight bearing: FWB Assist: Supervision to independent, complaints of SOB, notes that she feels that her legs would keep going much longer however she is just too winded to go any further in morning and afternoon session. Distance: AM 100 ftx2, PM 75 ft x2 with complaints of SOB THEREX: Completed open chain LE strength and conditioning per flow sheet promot ing hip flexion, abduction in seated position, LAQ, glut sets and ankle pumps. Recommended she continue with exercises completing 10 reps of each every couple of hours. STAIRS:N/T ASSESSMENT: Benny overall is doing very well. Primary complaint is with SOB with any functional endurance at this time. I with functional transfers with improving LE strength. Gait is currently without assistive device. Getting up and about in her room I. PLAN: Continue to improve functional endurance while still in hospital. Discharge home to family upon MD order. TREATMENT CODE/TIME: [id number], [id number] 25 minutes 7:55-8-20 AM; [id number], [id number] 25 minutes 11:25-11:50 AM
--- NOTE | 2019-06-22 13:31 | W.NUTRFU ---
Date of service: 06/22/19 Time of Service: 13:31 Nutritional Follow up NOTE: Advanced to fat restricted regular meal plan withe excellent intake (100%). Not at risk for nutritional decline at this time. Time Spent in Nutritional Counseling and Treatment: 0 time spent face to face
--- NOTE | 2019-06-22 15:23 | CMPROGNOTE_ITS ---
Care Management Progress Note S/O: Benny continues to be closely monitored, she remains inpatient at this time. IV fluids were discontinued today, she continues to work with PT and expressed concerns around being SOB with exertion. She remains on IV antibiotics with drain placed as well. CM continues to follow. A: Benny is a 63 year old female admitted to [facility] on 06/19/2019 for post operative intra-abdominal infection. P: Anticipate Benny will be discharged home with no new services when ready per MD. She will transport via private vehicle with her , Pola, upon discharge. CM will continue to support patient and discharge planning needs.
[2019-06-22 15:43] VITALS: BP 147/86; PULSE 70; RESP 18; TEMP 37.1; O2SAT 96
[2019-06-22 19:25] VITALS: BP 146/84; PULSE 68; RESP 19; TEMP 37.2; O2SAT 95
[2019-06-23] MEDS: PIPERACILLIN/TAZO 3.375 GM in Normal Saline 100 ML IVPB ×3 (01:50→14:03)
[2019-06-23 02:44] VITALS: BP 178/97; PULSE 76; RESP 20; TEMP 36.8; O2SAT 95
[2019-06-23] MEDS: Normal Saline Flush 10 ML SYR IVP ×4 (04:26→20:14)
[2019-06-23 07:38] VITALS: BP 169/103; PULSE 77; RESP 22; TEMP 36.4; O2SAT 94
[2019-06-23] MEDS: Sertraline 25 MG TAB PO (08:12)
[2019-06-23] MEDS: Gabapentin 300 MG CAP PO ×2 (08:13→13:52)
[2019-06-23] MEDS: Furosemide 40 MG TAB PO (08:13)
[2019-06-23] MEDS: Omeprazole 20 MG CAPCR PO (08:13)
[2019-06-23] MEDS: Psyllium PKT 1 EACH PO (08:13)
[2019-06-23] MEDS: Atenolol 50 MG TAB 100 MG PO (08:13)
[2019-06-23] MEDS: Lactobacillus Acidophilus CAP 1 CAP PO (08:13)
[2019-06-23] MEDS: Lisinopril 10 MG TAB PO (08:13)
--- NOTE | 2019-06-23 09:03 | W.PM.PROGNOT ---
Documented by User: DENI Silva 06/23/19 09:06 Date of Service Date of service: 06/23/19 Time of Service: 09:03 Assessment and Plan Assessment and plan (1) Infected hematoma following procedure: Status: Acute Assessment and plan: A/P: Tolerating normal diet. BP has been elevated. Drain- 35mLs total out yesterday. Minimal in the drain this morning, old, dark blood. Enocouraged continued participation in PT Subjective Subjective Interval history since last seen: I am feeling great today, I slept well over night. I think I am ready to go home. Exam Const General: cooperative, healthy appearing and comfortable Orientation: alert and oriented x3 Resp Effort & Inspection: normal respiratory effort, no audible wheezes and no cough GI Inspection: normal to inspection and non-distended Palpation: soft, no guarding and nontender Objective Objective Clinical Data: Vital Signs Temperature 36.4 C L 06/23/19 07:38 Temperature Source Tympanic 06/23/19 07:38 Pulse 77 06/23/19 07:38 Pulse Rhythm Regular 06/22/19 23:45 Respiratory Rate 22 06/23/19 07:38 Respiratory Effort Short of Breath 06/22/19 23:45 Respiratory Depth Normal 06/22/19 23:45 Respiratory Pattern Normal 06/22/19 23:45 Blood Pressure 169/103 H 06/23/19 07:38 Blood Pressure Mean 74 06/19/19 02:16 Pulse Oximetry 94 L 06/23/19 07:38 Oxygen Delivery Method Room Air 06/23/19 07:38 Oxygen Flow Rate 0 06/23/19 07:38 Pain Level 0 06/23/19 07:38 Comment 06/23/19 02:44 Intake & Output 06/22/19 06/23/19 06/23/19 18:59 06:59 18:59 Intake Total 1660 / 1880 220 / 1880 Output Total 610 / 2315 1705 / 2315 Balance 1050 / -435 -1485 / -435 Weight 115 kg Intake: IV 810 / 1020 210 / 1020 Oral 840 / 840 Injectate Right Upper Abdomen Output: Drainage 35 Right Upper Abdomen 35 Urine 580 / 2280 1700 / 2280 Other: Urine Color Pale Yellow Yellow Straw Urine Appearance Clear Clear Urine Odor None Normal Comment per patient Voiding Methods Toilet Toilet Laboratory Results WBC 9.61 k/cumm (4.4-10.8) 06/21/19 07:21 RBC 3.40 m/cumm (4.00-5.20) L 06/21/19 07:21 Hgb 10.5 g/dL (12.0-15.5) L 06/21/19 07:21 Hct 31.5 % (36.0-46.0) L 06/21/19 07:21 MCV 92.6 fL (80-95) 06/21/19 07:21 MCH 30.9 pg (27.0-33.0) 06/21/19 07: MCHC 33.3 g/dL (32.0-36.0) 06/21/19 07:21 RDW 13.9 % (11.7-14.6) 06/21/19 07:21 Plt Count 205 x1000/uL (130-400) 06/21/19 07:21 MPV 12.4 fL (8.0-11.0) H 06/21/19 07:21 Immature Gran % 0.3 % 06/21/19 07:21 Neutrophils % 80.9 06/21/19 07:21 Lymphocytes % 9.7 06/21/19 07:21 Monocytes % 6.8 06/21/19 07:21 Eosinophils % 2.2 06/21/19 07:21 Basophils % 0.1 06/21/19 07:21 Absolute Neutrophils 7.78 k/cumm (1.2-6.7) H 06/21/19 07:21 Absolute Lymphocytes 0.93 k/cumm (1.2-3.4) L 06/21/19 07:21 Absolute Monocytes 0.65 k/cumm (0.11-0.7) 06/21/19 07:21 Absolute Eosinophils 0.21 k/cumm (0.0-0.7) 06/21/19 07:21 Absolute Basophils 0.01 k/cumm (0.0-0.2) 06/21/19 07:21 PT 11.1 sec (9.3-11.0) H 06/18/19 00:01 INR 1.1 (0.9-1.1) 06/18/19 00:01 APTT 30.1 sec (21.0-31.4) 06/18/19 00:01 Sodium 137 mmol/L (136-145) 06/21/19 07:21 Potassium 3.4 mmol/L (3.5-5.1) L 06/21/19 07:21 Chloride 103 mmol/L (98-107) 06/21/19 07:21 Carbon Dioxide 23.6 mmol/L (21.0-32.0) 06/21/19 07:21 Anion Gap 10.4 mmol/L (3-11) 06/21/19 07:21 BUN 10 mg/dL (7-18) 06/21/19 07:21 Creatinine 0.71 mg/dL (0.55-1.02) 06/21/19 07:21 Estimated GFR/1.73 m2 >= 60.00 (mL/min/1.73m2) 06/21/19 07:21 Glucose 88 mg/dL (74-106) 06/21/19 07:21 Lactate 1.4 mmol/L (0.6-1.4) 06/18/19 00:01 Calcium 8.2 mg/dL (8.5-10.1) L 06/21/19 07:21 Magnesium 1.9 mg/dL (1.8-2.4) 06/21/19 07:21 Total Bilirubin 0.9 mg/dL (0.2-1.0) 06/20/19 06:25 Conjugated Bilirubin 0.41 mg/dL (0.00-0.20) H 06/18/19 00:01 AST 11 U/L (15-37) L 06/20/19 06:25 ALT 32 U/L (14-59) 06/20/19 06:25 Alkaline Phosphatase 132 U/L (46-116) H 06/20/19 06:25 Total Protein 6.4 g/dL (6.4-8.2) 06/20/19 06:25 Albumin 2.5 g/dL (3.4-5.0) L 06/20/19 06:25 Lipase 41 U/L (73-393) 06/18/19 00:01 Urine Color Yellow (Yellow) 06/18/19 01:00 Urine Clarity Sl cloudy (Clear) 06/18/19 01:00 Urine pH 6.0 (5-8) 06/18/19 01:00 Ur Specific [place] 1.010 (1.005-1.025) 06/18/19 01:00 Urine Protein 30 mg/dL (Negative) H 06/18/19 01:00 Urine Ketones Negative mg/dL (Negative) 06/18/19 01:00 Urine Blood Large (Negative) H 06/18/19 01:00 Urine Nitrite Negative (Negative) 06/18/19 01:00 Urine Bilirubin Small (Negative) H 06/18/19 01:00 Urine Urobilinogen 4.0 EU/dL (Up TO 0.2) H 06/18/19 01:00 Ur Leukocyte Esterase Negative (Negative) 06/18/19 01:00 Urine RBC 10-20 HPF (0-2) H 06/18/19 01:00 Urine WBC 3-5 HPF (0-5) 06/18/19 01:00 Ur Epithelial Cells Few HPF (Negative) 06/18/19 01:00 Urine Crystals Negative HPF (Negative) 06/18/19 01:00 Urine Bacteria Few HPF (Negative) 06/18/19 01:00 Urine Casts Negative LPF (Negative) 06/18/19 01:00 Urine Mucus Negative (Negative) 06/18/19 01:00 Ur Culture Indicated? Yes 06/18/19 01:00 Urine Glucose Negative mg/dL (Negative) 06/18/19 01:00 Documented by User: Belen Miranda DO 06/27/19 22:02 Assessment and Plan Assessment and plan (1) Infected hematoma following procedure: Status: Acute Assessment and plan: doing well. no thrush or diarrhea no fevers/chills. tolerating po's. minimal pain. min output from drain. -pt is comfortable flushing drain and wound care F/u in clinic on Thursday repeat CT on - hopefully can remove drain po abx- for 7 days totai. augmentin and flagyl. adn probiotics Exam GI Other: incisions are c/d/i. drain site is c/d/i minimal output. no distention
--- NOTE | 2019-06-23 09:53 | PDOC.CMPRO ---
- If Service Date Differs Date of service: 06/23/19 Time of Service: 09:53 Care Management Progress Note S/O: Benny was sitting up in a chair when CM met with her. She was very pleasant and engaged readily with CM. Benny shared that she is feeling much better and hopes to be able to go home soon. This morning PT recommended home health PT but Benny is reluctant to have others coming into her home. She stated that her is older than she is and has had 2 heart attacks and she does not want him exposed to Covid 19. Benny is learning how to care for her drain, but hopes that it can be removed before discharge as it has not had any drainage in almost 24 hours. A: Benny is a 63 year old female admitted to [facility] on 06/19/2019 for post operative intra-abdominal infection. P: Anticipate Benny will be discharged home with no new services when ready per MD. She will transport via private vehicle with her , Pola, upon discharge. CM will continue to support patient and discharge planning needs.
[2019-06-23 12:02] VITALS: BP 153/96; PULSE 71; RESP 16; TEMP 35.8; O2SAT 97
--- NOTE | 2019-06-23 15:02 | PTTR_ITS ---
Date of service: 06/23/19 Time of Service: 15:02 PT Notes Visit Reasons: POST OPERATIVE INTRABDOMINAL INFECTION Inpatient Physical Therapy Treatment Note [facility] Date: 06/23/2019 PRECAUTIONS: Standard. Activity as tolerated. SUBJECTIVE: Benny states that her breathlessness with activity has been less of a problem today compared to the past couple of days. She elaborates that it does not hurt to breathe as it did previously. She states that this may be attributable to the at late effects of the anesthesia that she has had for the 2 surgeries that was done to her the past 5 days. She hopes that she can go home as soon as she is medically cleared to do so. She further said that she gets steroid shots to her knees for pain. She hopes to get her two knees and R shoulder done this year. OBJECTIVE: General observation: No lines seen. No oxygen supplementation, patient is on room air. PAIN: None reported. Vital signs: Oxygen saturation ranged from 89 through 96% on room air throughout PT session BED MOBILITY/TRANSFERS Sit-stand: Independent Stand-sit: Independent Bed-Chair: Independent Chair-bed: Independent 4-stage balance test: Patient was able to maintain feet together, semi-tandem, and full tandem positions for 10 seconds but did not feel safe doing the one- legged stance. Patient states that she has fallen once withing the past 6 months and feels that she really needs to have her B knees and R shoulder done to help with pain control and stability of her B her knees. GAIT Assistive Device: No AD needed Weight bearing: FWB Assist: Supervision Distance: 25 feet + 250 feet +100 feet with only mild shortness of breath seen with saturation level lowest at 89% requiring 1 standing rest STAIRS: Patient tolerated six 4 inch steps and four 6 inch steps without holding onto any rails using step over step gait pattern with no complaints of breathlessness with oxygen saturation staying above 91% on room air ASSESSMENT: Patient has good mastery of room exercises that were initially given to her at time of PT evaluation. Benny is doing very well and will not need any services at home. Shortness of breath has abated with improvement in activity tolerance. Patient is independent for all mobility ADL performance inside her room. No complaints of abdominal pain nor bilateral knee pain. PLAN: Continue to improve functional endurance while still in hospital. Discharge home with upon MD order. TREATMENT CODE/TIME: 08448 x 54 minutes beginning at 9:19 AM AM; 93702 x 24 minutes beginning at 15:03 PM.
--- NOTE | 2019-06-23 15:17 | CHAPLAIN ---
Benny was sitting up on her chair and readily engaged in a conversation. She is feeling better, and is keeping in touch with family by phone. She lives in [place] near the [facility] assisted living facility. She lives with her and said she has adult children nearby but mostly is in touch with them by phone and facetime. We talked about places and restaurants that she likes going to in [place], when then is no order keeping people at home.
[2019-06-23 15:22] VITALS: BP 162/95; PULSE 67; RESP 24; TEMP 36.2; O2SAT 98
--- NOTE | 2019-06-23 18:42 | DSE_ITS ---
Documented by User: DENI Silva 06/23/19 19:11 Date of service: 06/23/19 Time of Service: 18:44 DS: Diagnosis Discharge Diagnosis (1) Infected hematoma following procedure: Status: Acute Discharge Plan Disposition Patient Disposition: HOME Condition: Stable Discharge Details Chief Complaint: Abd Prob Clinical Impression: Intra-abdominal infection Reason For Visit: POST OPERATIVE INTRABDOMINAL INFECTION Admit Date/Time: 06/19/19 09:09 Admit Provider: Gricelda Barry Attending Provider: Gricelda Barry Primary Care Provider: Randa Galvez ED Provider: [facility] Hospital Course: 63 y/o patient presented to the ER with complaints of abdominal pain on 06/17 s/p laparoscopic cholecystectomy. She was admitted and started on IV antibiotics to address a fluid collection in the gallbladder fossa on CT scan HIDA scan was nml. She went to [facility] to interventional radiology for drain placement into the fluid collection which was believed to be a hematoma (?infected) on 06/19. Patient has been tolerating a normal diet. No fevers or chills. She is independent with care of her drain. Will discharge on antibiotics for another 6 days. She will follow up with a CT scan on (06/29) and in the clinic on Thursday (06/30). Home Meds and New Rx's Prescriptions: New sodium chloride 0.9 % (flush) [Monoject 0.9% Sodium Chloride] Syringe 10 ml IVP PRN PRN (Reason: Drain Flush) Qty: 300 RF: 2 acidophilus-pectin, citrus 25 million cell -100 mg Tablet 1 cap PO BID 30 Days Qty: 30 RF: 1 tramadol 50 mg Tablet 50 mg PO BID PRN PRN7 Days Qty: 14 RF: 0 amoxicillin-pot clavulanate [Augmentin] 875-125 mg tablet 1 tab PO BID Qty: 12 RF: 0 metronidazole [Flagyl] 500 mg tablet 500 mg PO BID Qty: 12 RF: 0 Continued furosemide [Lasix] 40 MG tablet 40 mg PO DAILY RF: 0 atenolol 100 MG tablet 100 mg PO DAILY RF: 0 meloxicam [Mobic] 15 MG tablet 15 mg PO DAILY RF: 0 omeprazole 40 MG capsule,delayed release(DR/EC) 40 mg PO DAILY RF: 0 lisinopril 10 MG tablet 10 mg PO DAILY RF: 0 gabapentin 300 MG capsule 300 mg PO TID RF: 0 sertraline [Zoloft] 25 MG tablet 25 mg PO DAILY RF: 0 acetaminophen [Tylenol Extra Strength] 500 mg Tablet 1,000 mg PO Q4H PRN PRNRF: 0 oxycodone 5 mg capsule 5 mg PO Q4H PRN (Reason: pain) Qty: 10 RF: 0 ondansetron HCl [Zofran] 4 mg tablet 4 mg PO Q6H PRN (Reason: nausea and vomiting) Qty: 3 RF: 0 Discharge Instructions Additional Instructions: Please call the General Surgery office at [phone] with any questions. We will call to schedule an appointment to be seen in the clinic as well as to schedule you for a follow up CT scan. Reviewed and discussed signs and symptoms of infection to include fevers, chills, sweats, redness, soreness or swelling in the area, new onset pain or new onset/change in drainage. Patient verbalized understanding and will call this office, their PCP or go to the ER if any of these symptoms occur. Stand Alone Forms: Nursing Discharge Form Activity:: No lifting, pushing or pulling <20#. No heavy bending or twisting. Equipment/Supplies:: No Equipment Needed Diet:: Normal Diet Discharge Orders Discharge Orders: Discharge Order (Routine); Ordered 06/23/19 Ordered By: Rajani Jin DS: Summary Status at Discharge Functional status at discharge: independent ambulation Overall status at discharge: patient is back to baseline Mental Status: mental status grossly normal Speech and Movement: speech and movement normal Mood: congruent mood Affect: normal affect Time Spent with Patient providing and/or coordinating discharge services: Less than 30 minutes Exam Const General: cooperative, healthy appearing and comfortable Orientation: alert and oriented x3 Resp Effort & Inspection: normal respiratory effort, no audible wheezes and no cough GI Palpation: soft, no guarding and nontender Other: Drain in place in RUQ. Dark/old blood in drain Psych Mental Status: mental status grossly normal Speech and Movement: speech and movement normal Mood: congruent mood Affect: normal affect DS: Data Vitals/I&O Vitals and I&O: Vital Signs Temperature 36.2 C L 06/23/19 15:22 Temperature Source Tympanic 06/23/19 15:22 Pulse 67 06/23/19 15:22 Pulse Rhythm Regular 06/23/19 15:51 Respiratory Rate 24 06/23/19 15:22 Respiratory Effort Non-Labored 06/23/19 15:51 Respiratory Depth Normal 06/23/19 15:51 Respiratory Pattern Normal 06/23/19 15:51 Blood Pressure 162/95 H 06/23/19 15:22 Blood Pressure Mean 74 06/19/19 02:16 Pulse Oximetry 98 06/23/19 15:22 Oxygen Delivery Method Room Air 06/23/19 15:22 Oxygen Flow Rate 0 06/23/19 15:22 Pain Level 0 06/23/19 15:22 Comment 06/23/19 02:44 Intake & Output 06/22/19 06/23/19 06/23/19 18:59 06:59 18:59 Intake Total 1660 / 1880 220 / 1880 1045 / 1045 Output Total 610 / 2315 1705 / 2315 850 / 850 Balance 1050 / -435 -1485 / -435 195 / 195 Weight 115 kg Intake: IV 810 / 1020 210 / 1020 200 / 200 Oral 840 / 840 840 / 840 Injectate 5 / 5 Right Upper Abdomen 10 5 / 5 Output: Drainage 30 / 35 5 / 35 0 / 0 Right Upper Abdomen 30 / 35 5 / 35 0 / 0 Urine 580 / 2280 1700 / 2280 850 / 850 Other: Urine Color Pale Yellow Yellow Yellow Straw Urine Appearance Clear Clear Clear Urine Odor None Normal None Comment per patient Voiding Methods Toilet Toilet Toilet Data Completed and Pending Labs on day of discharge: Preliminary micro results at discharge 06/18/19 01:50 Blood Culture - Preliminary Blood NO GROWTH 96 HOURS 06/18/19 00:01 Blood Culture - Preliminary Blood NO GROWTH 96 HOURS [facility] Social History Smoking/Tobacco Use Status: Former Tobacco Use Smokeless tobacco user: other Alcohol Intake: current Alcohol Intake frequency: a few times a month Alcohol type: hard liquor Drug use: Never Substance use type: tranquilizers Details: PT USES ELECTRONIC CIGARETTES Do you feel safe at home: Yes Do you feel safe in your relationship?: Yes Documented by User: Belen Lovelace DO Ruben 06/23/19 19:21 Discharge Plan Disposition Patient Disposition: HOME Condition: Stable Discharge Details Chief Complaint: Abd Prob Clinical Impression: Intra-abdominal infection Reason For Visit: POST OPERATIVE INTRABDOMINAL INFECTION Admit Date/Time: 06/19/19 09:09 Admit Provider: Gricelda Barry Attending Provider: Gricelda Barry Primary Care Provider: Randa Galvez ED Provider: [facility] Hospital Course: 63 y/o patient presented to the ER with complaints of abdominal pain on 06/17 s/p laparoscopic cholecystectomy. She was admitted and started on IV antibiotics to address a fluid collection in the gallbladder fossa on CT scan HIDA scan was nml. She went to [facility] to interventional radiology for drain placement into the fluid collection which was believed to be a hematoma (?infected) on 06/19. Patient has been tolerating a normal diet. No fevers or chills. She is independent with care of her drain. Will discharge on antibiotics for another 6 days. She will follow up with a CT scan on (06/29) and in the clinic on Thursday (06/30). Home Meds and New Rx's Prescriptions: New sodium chloride 0.9 % (flush) [Monoject 0.9% Sodium Chloride] Syringe 10 ml IVP PRN PRN (Reason: Drain Flush) Qty: 300 RF: 2 acidophilus-pectin, citrus 25 million cell -100 mg Tablet 1 cap PO BID 30 Days Qty: 30 RF: 1 tramadol 50 mg Tablet 50 mg PO BID PRN PRN7 Days Qty: 14 RF: 0 amoxicillin-pot clavulanate [Augmentin] 875-125 mg tablet 1 tab PO BID Qty: 12 RF: 0 metronidazole [Flagyl] 500 mg tablet 500 mg PO BID Qty: 12 RF: 0 Continued furosemide [Lasix] 40 MG tablet 40 mg PO DAILY RF: 0 atenolol 100 MG tablet 100 mg PO DAILY RF: 0 meloxicam [Mobic] 15 MG tablet 15 mg PO DAILY RF: 0 omeprazole 40 MG capsule,delayed release(DR/EC) 40 mg PO DAILY RF: 0 lisinopril 10 MG tablet 10 mg PO DAILY RF: 0 gabapentin 300 MG capsule 300 mg PO TID RF: 0 sertraline [Zoloft] 25 MG tablet 25 mg PO DAILY RF: 0 acetaminophen [Tylenol Extra Strength] 500 mg Tablet 1,000 mg PO Q4H PRN PRNRF: 0 oxycodone 5 mg capsule 5 mg PO Q4H PRN (Reason: pain) Qty: 10 RF: 0 ondansetron HCl [Zofran] 4 mg tablet 4 mg PO Q6H PRN (Reason: nausea and vomiting) Qty: 3 RF: 0 Discharge Instructions Additional Instructions: Please call the General Surgery office at [phone] with any questions. We will call to schedule an appointment to be seen in the clinic as well as to schedule you for a follow up CT scan. Reviewed and discussed signs and symptoms of infection to include fevers, chills, sweats, redness, soreness or swelling in the area, new onset pain or new onset/change in drainage. Patient verbalized understanding and will call this office, their PCP or go to the ER if any of these symptoms occur. Stand Alone Forms: Nursing Discharge Form Activity:: No lifting, pushing or pulling <20#. No heavy bending or twisting. Equipment/Supplies:: No Equipment Needed Diet:: Normal Diet Discharge Orders Discharge Orders: Discharge Order (Routine); Ordered 06/23/19 Ordered By: Rajani Jin [facility] Social History Smoking/Tobacco Use Status: Former Tobacco Use Smokeless tobacco user: other Alcohol Intake: current Alcohol Intake frequency: a few times a month Alcohol type: hard liquor Drug use: Never Substance use type: tranquilizers Details: PT USES ELECTRONIC CIGARETTES Do you feel safe at home: Yes Do you feel safe in your relationship?: Yes
[2019-06-23] MEDS: metroNIDAZOLE 500 MG TAB PO (20:14)
[2019-06-23] MEDS: Amoxicillin 875/Clav. 125 TAB PO (20:14)
--- NOTE | 2019-06-24 08:41 | PT.INDS ---
Date of service: 06/24/19 Time of Service: 08:41 PT Notes Visit Reasons: POST OPERATIVE INTRABDOMINAL INFECTION Inpatient Physical Therapy Discharge Summary Dates: 06/24/2019 Dates of Service: 06/21/2019 through 06/23/2019 This is a clinical summary of care provided on the duration of dates listed above. No charge was made in the completion of this documentation. Referring Doctor: DENI Silva PT Orders: PT CONSULT: Eval and treat transfer training Precautions: Standard. Activity as tolerated Patient Profile/Admitting Diagnosis: Benny is a 63 year old female s/p Laparoscopic Cholecystectomy, when she started having some low grade fevers on Thursday afternoon. Symptoms progressed with increasing pain and was admitted to the hospital on 06/19/2019 s/p diagnosis of post operative intraabdominal infection. PMHX: Fibromyalgia. Gallstones (Acute). Gallstones without obstruction of gallbladder (Acute). GERD (gastroesophageal reflux disease). High cholesterol. Hypertension. Kidney stones. Surgical History. EGD - MAC (12/24/16). , Ectopic. Tonsillectomy. Benny notes that she has OA of bilateral knees and is in need of bilateral TKA, she also has a bad right shoulder that needs repair. Social History/Home Situation: Benny lives in [place] with her , Pola. They have a daughter, Rona, who lives near . They have another daughter who lives in [place] as well. 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 She is independent at baseline with occasional use of a walker secondary to her knee pain. She does report of 3-4 steps to enter her home. Otherwise her home is one level living. She notes that the laundry is in the basement however her has been doing this chore due to her knees as well. Current Functional Limitations: Worried about being able to be independent with getting into and out of bed on her own due to her 's cardiac history she does not want him to have to pull and tug on her. Equipment Owned/DME: Walker, cane Subjective: NT. See most recent PT notes. Objective: NT. See most recent PT notes. General Observation:NT. See most recent PT notes. Mental Status:NT. See most recent PT notes. Pain: NT. See most recent PT notes. ROM: Right Upper Extremity: Shoulder flexion limited to 90 degrees, abduction to 150 degrees, ER to 30 degrees, and IR functional reach to side. Elbow/wrist/ hand WNL Left Upper Extremity: Demonstrates grossly full L UE ROM without pain Right Lower Extremity: Hip flexion 100 degrees, knee flexion 105 degrees lying in bed, lacking 10 degrees of terminal knee extension. WNL ankle ROM Left Lower Extremity: Hip flexion 100 degrees, knee flexion 110 degrees lying in bed, lacking 5 degrees of terminal knee extension, Ankle ROM WNL Strength: Right Upper Extremity: Shoulder Flexion 3+/5 with pain, abduction 4/5, ER 3/5, Bicep 4+/5, Tricep 4+/5, Good functional grasp Left Upper Extremity: Shoulder flexion 4+/5, abduction 4+/5,ER 4+/5, Bicep 5/5, Tricep 5/5, Good functional grasp Right Lower Extremity: Hip flexion N/T due to recent abdominal surgery, Knee flexion 4/5, knee extension 4+/5, DF/PF 5/5 Left Lower Extremity: Hip flexion N/T due to recent abdominal surgery, Knee flexion 4/5, knee extension 4+/5, DF/PF 5/5 Sensation: Intact to light touch Bed Mobility/Transfers: Rolling: Independent Supine-sit: Independent Sit-supine: Independent Sit-stand: Independent Stand-sit: Independent Gait: 250 feet +100 feet without an assistive device with full weightbearing independently with oxygen saturation ranging from 89% to 96% on room air. Patient required 2 standing rests due to fatigue. Patient was also able to tolerate six 4 inch steps and four 6 inch steps without holding onto bilateral rails with step to gait pattern. Balance: Static Sitting: Normal Dynamic Sitting: Normal Static Standing: Good Dynamic Standing: Good Assessment: Patient is a 63-year old female referred to physical therapy services with the diagnosis of post operative intraabdominal infection. Patient presents with clinical signs and symptoms consistent with diagnosis, as demonstrated by the following impairment level findings: impaired core strength due to recent abdominal surgery, right shoulder weakness due to OA, and bilateral knee OA with limited ROM and strength. Impairments are contributing to the following functional limitations: transfer ability to get out of bed, decreased functional mobility and endurance Goals: Goals X1 week 1. Supine-Sit I MET 2. Sit-Supine I MET 3. Sit-Stand I MET 4. Stand-Sit I MET 5. Bed-Chair I MET 6. Chair-Bed I MET 7. Gait I 100 ftx2 or greater without difficulty MET 8. Stairs ascend/descend 3-4 stairs with use of railings, S MET DISCHARGE RECOMMENDATIONS: Home with on 06/23/2019 per MD. No equipment needs at time of discharge. TREATMENT CODE/TIME: NC. Thank you very much for this referral. Norma Vazquez PT, DPT, CLT [facility] Inpatient PT at [facility]
== END 2019-06-23 20:50 | disposition home or self-care (01) | DRG 920 ==
LOC: ER 06-19 01:51 → MS 06-19 03:07
PROVIDERS: Admitting Provider Surgery; Emergency Provider Emergency Medicine; PCP Nurse Practitioner; Visit Provider Surgery
DX: K91.870 Postprocedural hematoma of a digestive system organ or structure following a digestive system procedure (principal); K91.89 Other postprocedural complications and disorders of digestive system; T81.40XA Infection following a procedure, unspecified, initial encounter; Z90.49 Acquired absence of other specified parts of digestive tract
CPT/HCPCS: 36415; 78227; 80048; 80053; 83690; 87040; 96365; 97110; 97162; 97530; 99222; 99233; 99238; 99285; NC; 74177; 81003; 81015; 82248; 83605; 83735; 85025; 85610; 85730; 87086; J1885; J2405; J2543; J3475; J3480; J3490; Q9967

== ENCOUNTER 2019-06-30 01:08 | Outpatient (CLI) | payer OTHER, SELFPAY ==
[2019-06-30] MEDS: Breeza Beverage 473 ML BTL PO ×2 (08:37→08:38)
[2019-06-30] MEDS: Omnipaque 350 MG/ML 50 ML BTL PO (08:38)
[2019-06-30] MEDS: Normal Saline - Diluent 50 ML VIAL IV (09:41)
[2019-06-30] MEDS: Omnipaque 350 MG/ML 100 ML BTL IJ (09:42)
--- NOTE | 2019-06-30 10:06 | DI.CT_ITS ---
EXAM: CT ABDOMEN PELVIS W CLINICAL HISTORY: F/u per drain for GB fossa abscess,infected hematoma,z90.49. TECHNIQUE: Imaging Protocol: Axial computed tomography images with coronal and sagittal reformatted images were created and reviewed CONTRAST MATERIAL: Intravenous: Omnipaque 350 Contrast volume:structured data in ml Oral: yes / no COMPARISON: CT ABDOMEN PELVIS W from 06/19/2019 FINDINGS: The lung bases are clear. A surgical drain is seen in the right upper quadrant. There is no residual abscess. There is interv al inflammation is much improved. There is no localized fluid collection. The previously noted pos tsurgical air has resolved. No biliary dilatation or biliary air is seen. There is no bowel dilatation or inflammatory change. There is a trace amount of free fluid in the lo wer pelvis, significantly less when compared with the previous exam. Bladder is unremarkable. The l iver again shows a small cyst. The spleen, adrenals, pancreas and right kidney are unremarkable are unremarkable. A left renal cyst is noted. There are atherosclerotic changes of the abdominal aorta but no evidence of an aneurysm. Degenerative changes and scoliosis are again noted in the spine. Impression: A drain is seen in the gallbladder fossa. There is no evidence of residual abscess or fluid collecti on. No biliary dilatation.. DATA REPOSITORY: All CT scans at this facility are submitted to the National Radiology Data Registry (NRDR) Dose Index Registry (DIR) with the [employer] (A[employer]). RADIATION OPTIMIZATION: All CT scans at this facility use at least one of these dose optimization te chniques: automated exposure control; mA and/or kV adjustment per patient size (includes targeted exa ms where dose is matched to clinical indication); or iterative reconstruction.
== END 2019-06-30 01:28 ==
PROVIDERS: PCP Nurse Practitioner; Visit Provider Surgery
DX: K91.870 Postprocedural hematoma of a digestive system organ or structure following a digestive system procedure (principal); T81.40XD Infection following a procedure, unspecified, subsequent encounter; Z90.49 Acquired absence of other specified parts of digestive tract
CPT/HCPCS: 74177; J3490; Q9967

== ENCOUNTER 2019-07-08 16:33 | Outpatient (REF) | payer OTHER, SELFPAY ==
[2019-07-11 14:02] LABS: C Difficile PCR Positive (Negative)
== END 2019-07-08 16:53 ==
LOC: LBN 16:33
PROVIDERS: PCP Nurse Practitioner; Visit Provider Surgery
DX: R19.7 Diarrhea, unspecified (principal)
CPT/HCPCS: 87324; 87798

== ENCOUNTER 2019-10-21 11:34 | Outpatient (CLI) | payer OTHER, SELFPAY ==
--- NOTE | 2019-10-21 10:45 | DI.RAD_ITS ---
EXAM: XR STANDING ALIGNMENT CLINICAL HISTORY: b/l knee pain TECHNIQUE: COMPARISON: No exams were available for comparison FINDINGS: AP standing alignment views were obtained. There is severe narrowing of the cartilaginous joint spac es of the medial tibiofemoral joints bilaterally. There is medial subluxation of the right femur on the tibia. There are bilateral prominent osteophytes of the patellofemoral joints. IMPRESSION:
--- NOTE | 2019-10-21 11:15 | DI.RAD_ITS ---
EXAM: XR SHOULDER RT COMPLETE 2+V CLINICAL HISTORY: right shoulder pain TECHNIQUE: COMPARISON: No exams were available for comparison FINDINGS: Three views were obtained. There are mild hypertrophic degenerative changes of the acromioclavicular joint. The internal rotation AP view suggests an inferior acromial spur but this is not confirmed o n the Y-view. Mild marginal osteophyte formation of the humeral head and glenoid noted. IMPRESSION: Degenerative changes as described above.
--- NOTE | 2019-10-21 11:15 | DI.RAD_ITS ---
EXAM: XR ANKLE RT COMPLETE CLINICAL HISTORY: pain in right ankle TECHNIQUE: COMPARISON: No exams were available for comparison FINDINGS: Three views were obtained. The ankle mortise is fairly well maintained. There is marked soft tissue swelling of the ankle. Minimal marginal osteophyte formation noted at the joints of the ankle and m idfoot. Attachment osteophytes plantar fascia and Achilles tendon noted. No other significant bony abnormality seen. IMPRESSION: Mild degenerative changes as described above. Marked soft tissue swelling.
== END 2019-10-21 11:54 ==
PROVIDERS: PCP Nurse Practitioner; Referring Provider Nurse Practitioner; Visit Provider Physician Assistant Surgical
DX: M19.011 Primary osteoarthritis, right shoulder (principal); M19.071 Primary osteoarthritis, right ankle and foot; R22.41 Localized swelling, mass and lump, right lower limb; M25.771 Osteophyte, right ankle; S83.191A Other subluxation of right knee, initial encounter; M25.762 Osteophyte, left knee; M25.761 Osteophyte, right knee
CPT/HCPCS: 73030; 73610; 77073

== ENCOUNTER 2019-12-23 02:11 | Outpatient (CLI) | payer OTHER, SELFPAY ==
[2019-12-23 10:35] LABS: HCT 39.8 % (36.0-46.0); HGB 12.8 g/dL (11.2-15.7); MCH 29.8 pg (27.0-33.0); MCHC 32.2 % (32.0-36.0); MCV 92.6 fL (80-95); Platelet Count 226 10^3/uL (130-400); RDW 13.8 % (11.7-14.6); WBC 7.79 10^3/uL (4.4-10.8)
[2019-12-23 11:35] LABS: Anion Gap 8.2 mmol/L (3-11); BUN 16 mg/dL (7-18); CO2 29.8 mmol/L (21.0-32.0); CREATININE 0.87 mg/dL (0.55-1.02); Calcium 9.2 mg/dL (8.5-10.1); Chloride 103 mmol/L (98-107); Glucose 96 mg/dL (74-106); Potassium 4.2 mmol/L (3.5-5.1); Sodium 141 mmol/L (136-145)
[2019-12-24 20:46] LABS: COVID-19 RT-PCR Result NEGATIVE (Negative)
== END 2019-12-23 02:31 ==
PROVIDERS: PCP Nurse Practitioner; Visit Provider Student in an Organized Health Care Education/Training Program
DX: Z01.818 Encounter for other preprocedural examination (principal)
CPT/HCPCS: 36415; 80048; 85027; U0003

== ENCOUNTER 2019-12-27 08:27 | Observation (INO) | payer OTHER, SELFPAY ==
[2019-12-27] VITALS (8 sets, daily range): BP systolic 124–162; BP diastolic 71–85; PULSE 57–60; RESP 12–18; TEMP 36.4–37; O2SAT 94–98
[2019-12-27] MEDS: Acetaminophen 500 MG TAB 1000 MG PO ×2 (09:04→14:31)
[2019-12-27] MEDS: Celecoxib 200 MG CAP 400 MG PO (09:04)
[2019-12-27] MEDS: Gabapentin 300 MG CAP PO ×2 (09:04→14:31)
[2019-12-27] MEDS: Lactated Ringers 1,000 ML 80 ML IV ×2 (09:36→11:20)
[2019-12-27] MEDS: Bupivacaine 0.25% Pres-Free 30 ML VIAL ×2 (11:22→11:26)
[2019-12-27] MEDS: Normal Saline 50 ML (11:25)
[2019-12-27] MEDS: Ketorolac 30 MG/ML VIAL (11:26)
--- NOTE | 2019-12-27 12:30 | RT.EKG_ITS ---
APPROVED REPORT Exam: Resting ECG Patient Location: I HR:56 bpm ECG Measurements Heart Rate 56 AXIS OH 185 P -55 QRSd 101 QRS 29 QT 486 T 34 QTc 469 Conclusion Sinus or ectopic atrial bradycardia...P axis (-45,135), rate< 60
--- NOTE | 2019-12-27 15:32 | IN_ITS ---
Date of service: 12/27/19 Time of Service: 15:32 PT Notes Visit Reasons: L KNEE Physical Therapy Inpatient Initial Evaluation Date: 12/27/2019 Referring Doctor: Roby Dee MD PT Orders: PT CONSULT: Status post Ortho surgery. Status post left TKA. Precautions: Fall. Standard. WBAT on left LE. Patient Profile/Admitting Diagnosis: Benny is a 64-year-old female with primary unilateral osteoarthritis of the left knee and is status post left total knee arthroplasty on postoperative day 0. PMHX: Medical History (Updated 12/23/19 @ 09:24 by Belen Brown) Antibiotic-associated diarrhea Colitis due to Clostridium difficile Fibromyalgia Gallstones Gallstones without obstruction of gallbladder GERD (gastroesophageal reflux disease) Hyperlipidemia Hypertension Infected hematoma following procedure Kidney stones Surgical History (Updated 12/23/19 @ 09:24 by Belen Brown) EGD - MAC (12/24/16) , Ectopic S/P laparoscopic cholecystectomy (~06/15/19) Tonsillectomy Social History/Home Situation: Lives with in a private home with 3 steps to enter and rails on both sides. Independent with all of aspects ADLs without the use of an assistive ambulatory device nor adaptive equipment. Fell once in the past 12 months. Equipment Owned/DME: 4-wheeled walker, front-wheeled walker Subjective: Did not pain at rest and with ambulation. Complained of discomfort in the left distal and medial femoral area during straight leg raises. Objective: General Observation: IV in the right UE. TEDS in the right leg. Marcelo wraps to left LE. Cryo/Cuff to left LE. Mental Status: Alert and oriented x4 Pain: 0/10 at rest. 2/10 with straight leg raises ROM: Right Upper Extremity: Shoulder Flexion WFL. Shoulder abduction WFL. Elbow flexion WFL. Wrist flexion WFL. Opening and closing of hand WFL. Left Upper Extremity: Shoulder Flexion WFL. Shoulder abduction WFL. Elbow flexion WFL. Wrist flexion WFL. Opening and closing of hand WFL. Right Lower Extremity: Hip flexion WFL. Hip abduction WFL. Knee flexion WFL. Ankle dorsiflexion WFL. Ankle plantarflexion WFL. Left Lower Extremity: Hip flexion WFL. Hip abduction WFL. Knee flexion 10 degrees to 100 degrees. Knee extension -10 degrees. Ankle dorsiflexion WFL. Ankle plantarflexion WFL. Strength: Right Upper Extremity: Shoulder flexors 5/5. Shoulder abductors 5/5. Elbow flexors 5/5. Elbow extensors 5/5. Red Cap strong. Left Upper Extremity: Shoulder flexors 5/5. Shoulder abductors 5/5. Elbow flexors 5/5. Elbow extensors 5/5. Red Cap strong. Right Lower Extremity: Hip flexors 4/5. Hip extensors 4/5. Hip abductors 5/5. Knee flexors 5/5. Knee extensors 5/5. Ankle dorsiflexors 5/5. Ankle plantarflexors 5/5. Left Lower Extremity:Hip flexors 4/5. Hip extensors 4/5. Hip abductors 5/5. Knee flexors 3-/5. Knee extensors 3-/5. Ankle dorsiflexors 5/5. Ankle plantarflexors 5/5. Sensation: Intact as to pain and pressure on bilateral lower extremities. Bed Mobility/Transfers: Supine to sit standby assist with HOB flat Sit to stand contact-guard assist Stand to sit standby assist Bed to chair guard assist Chair to bed contact-guard assist Gait: 100 feet x 2 using front wheeled walker with step to gait pattern requiring contact-guard assist. Decreased anita. Decreased step height on the left LE. Minimal hip hiking seen in the right side during swing. Balance: Static Sitting: Normal Dynamic Sitting: Normal Static Standing: Fair Dynamic Standing: Fair Special Tests: Mobility Limitations Standardized Measure [facility] AM-PAC 6 clicks Basic Mobility Inpatient Short Form: Raw Score: 21 CMS Score: 29% deficit Informed Consent/Education: Patient instructed in purpose of PT consult and plan of care. Assessment: Benny demonstrates the need for a front wheeled walker for all mobility ADL performance for maximized independence, impaired gait pattern, impaired balance, impaired range of motion and strength and the left knee result from postoperative status. Benny is a 64-year-old female with primary unilateral osteoarthritis of the left knee and is status post left total knee arthroplasty on postoperative day 0. Patient presents with clinical signs and symptoms consistent with current/admit ting diagnoses that have resulted to mobility limitations, gait instability, generalized weakness, and impairment of motor control as demonstrated by the following impairment level findings: 1. Decreased strength to left knee major muscle groups 2. Impaired standing balance 3. Impaired activity tolerance 4. Limitation of joint range of motion in left knee Impairments are contributing to the following functional limitations: 1. Inability to safely ambulate without assistive device 2. Increase completion time for mobility ADL performance 3. Increased fall risk 4. Inability to negotiate steps alone safely Patient is assessed as a 43043 moderate complexity based on the following: History: 64-year-old female with impairment level findings, functional limitations, and past medical history as indicated above Examination: Demonstrable impairment in strength, balance, and mobility level with underlying impairments and functional limitations as documented above Presentation:Evolving Decision Makin moderate complexity Goals: N/A. PT eval and 1 treatment session only. Plan of Care/Treatment Plan: N/A. PT eval and 1 treatment session only. DISCHARGE RECOMMENDATIONS: Home when medically cleared by orthopedic surgeon. Resume skilled outpatient physical therapy services in order to safely return to independent premorbid level. TREATMENT CODE/TIME: 36092 ? 20 minutes, 00635 x 23 minutes beginning at 15:32 PM. Thank you for the opportunity to participate in the care of this patient. Norma Vazquez PT, DPT, CLT [facility] [place], [place]
--- NOTE | 2019-12-27 15:33 | NUR.NOTE ---
1342 Pt arrived to room 207 via pt bed from PACU. Pt alert and oriented x3. Pt oriented to call schaffer system. Please see shift assessment for further information. Nursing Note:
[2019-12-27] MEDS: ceFAZolin 1 GM/50 ML BAG IVPB (16:14)
--- NOTE | 2019-12-27 16:35 | DSE_ITS ---
Date of service: 12/27/19 Time of Service: 16:35 DS: Diagnosis Discharge Diagnosis (1) Degenerative joint disease of knee, left: Status: Chronic Discharge Plan Disposition Patient Disposition: HOME Condition: Good Discharge Details Reason For Visit: L KNEE Admit Date/Time: 12/27/19 08:27 Admit Provider: Roby Dee Attending Provider: Roby Dee Primary Care Provider: Randa Galvez Hospital Course Hospital Course: Patient was admitted to the medical/surgical floor following the procedure. The surgery was tolerated well without any notable medical, surgical, or anesthetic complications. Mobilization began postoperatively. She was voiding spontaneously. Vitals were stable. Physical therapy worked with the patient and was cleared for discharge home. No acute medical issues. Pain was controlled on oral regimen. Home Meds and New Rx's Prescriptions: New acetaminophen 500 mg tablet 1,000 mg PO Q8H PRN (Reason: pain) Qty: 90 RF: 3 aspirin 81 mg tablet,delayed release (DR/EC) 81 mg PO BID Qty: 60 RF: 0 docusate sodium [Colace] 100 mg capsule 100 mg PO BID PRNQty: 10 RF: 0 oxycodone 5 mg tablet 5 mg PO Q4H Qty: 18 RF: 0 Continued atorvastatin 20 mg tablet 20 mg PO DAILY RF: 0 furosemide [Lasix] 40 MG tablet 40 mg PO DAILY RF: 0 atenolol 100 MG tablet 100 mg PO DAILY RF: 0 meloxicam [Mobic] 15 MG tablet 15 mg PO DAILY RF: 0 omeprazole 40 MG capsule,delayed release(DR/EC) 40 mg PO DAILY RF: 0 lisinopril 10 MG tablet 10 mg PO DAILY RF: 0 gabapentin 300 MG capsule 300 mg PO TID RF: 0 sertraline [Zoloft] 25 MG tablet 25 mg PO DAILY RF: 0 Discontinued acetaminophen [Tylenol Extra Strength] 500 mg Tablet 1,000 mg PO Q4H PRN PRNRF: 0 Discharge Instructions Additional Instructions: Dr. Dee?s Total Knee Discharge Instructions Activity: The most important activity is to walk. You should try to take short walks a few times a day. It is important that when resting you work on keeping the knee straight. Avoid putting a pillow behind the knee as this will encourage flexion. Work on range of motion exercises as provided by Physical Therapy and the preoperative booklet. - Start outpatient physical therapy within 2 weeks. - You should wear the FELY hose on both legs for 2 weeks. Dressing: Keep the surgical dressing (Mepilex) in place for at least one week. If you went home on the surgical day, you should remove the JOSE ARMANDO wrap on the second day and then apply the FELY hose. The dressing may get wet after 3 days but avoid soaking the dressing. If it gets wet, just lightly pat dry. Most patient prefer to cover with ClingWrap or Saran Wrap to keep the dressing dry. After the first week, the dressing may be removed and replaced with light gauze and tape or nothing. Medications: - You should take Tylenol and anti-inflammatory Meloxicam as your primary pain control medications - You have been prescribed a stronger pain medication Oxycodone for breakthrough pain, take as needed as prescribed. - You should continue your stomach acid reduction agent Omeprazole to help reduce stomach acid and reflux. - You will be taking Aspirin 81mg twice a day for DVT prevention unless instructed otherwise. - If you have constipation you should take Colace or Miralax (both [id number]). It takes most people 3-4 days to have a bowel movement. Follow-up: 2 weeks. You should also call physical therapy to work on scheduling outpatient therapy sessions which can begin at 2 weeks. If you have any acute concerns or questions, please do not hesitate to contact the office at [phone]. You may contact Dr. Dee with any questions after hours through the hospital at [phone] or on his cell phone at [phone]. Referrals: Roby Dee MD [ [facility] STAFF PHYSICIAN] - Activity:: Activity as Tolerated Equipment/Supplies:: No Equipment Needed Diet:: As Tolerated Discharge Orders Discharge Orders: Discharge Order (Routine); Ordered 12/27/19 Ordered By: Roby Dee DS: Summary Status at Discharge Functional status at discharge: uses cane/walker Overall status at discharge: patient is progressing back to baseline Mental Status: mental status grossly normal Speech and Movement: speech and movement normal Mood: congruent mood Affect: normal affect Exam Psych Mental Status: mental status grossly normal Speech and Movement: speech and movement normal Mood: congruent mood Affect: normal affect DS: Data Vitals/I&O Vitals and I&O: Vital Signs Temperature 37.0 C 12/27/19 15:06 Temperature Source Tympanic 12/27/19 15:06 Pulse 57 L 12/27/19 15:06 Pulse Rhythm Regular 12/27/19 14:08 Respiratory Rate 15 12/27/19 15:06 Respiratory Effort 12/27/19 14:08 Respiratory Depth Normal 12/27/19 14:08 Respiratory Pattern Normal 12/27/19 14:08 Blood Pressure 127/83 12/27/19 15:06 Pulse Oximetry 95 12/27/19 15:06 Respiratory End-tidal CO2 39 12/27/19 13:20 Oxygen Delivery Method Room Air 12/27/19 15:06 Oxygen Flow Rate 0 12/27/19 15:06 Pain Level 4 12/27/19 15:06 Comment 12/27/19 13:55 Intake & Output 12/26/19 12/27/19 12/27/19 23:59 11:59 23:59 Intake Total 193.333 / 563.333 370 / 563.333 Output Total 150 / 150 Balance 193.333 / 413.333 220 / 413.333 Weight 114.3 kg Intake: IV 193.333 / 513.333 320 / 513.333 Oral 50 / 50 Output: Estimated Blood Loss 150 / 150 Other: Emesis Description None PFSH Medical History Antibiotic-associated diarrhea Colitis due to Clostridium difficile Fibromyalgia Gallstones Gallstones without obstruction of gallbladder GERD (gastroesophageal reflux disease) Hyperlipidemia Hypertension Infected hematoma following procedure Kidney stones Surgical History EGD - MAC (12/24/16) , Ectopic S/P laparoscopic cholecystectomy (~06/15/19) Tonsillectomy Social History Smoking/Tobacco Use Status: Former Tobacco Use Tobacco: How many years used: 40 Smokeless tobacco user: other Alcohol Intake: current Alcohol Intake frequency: a few times a month Alcohol type: hard liquor Drug use: Never Substance use type: tranquilizers Details: PT USES ELECTRONIC CIGARETTES current occupation: caregiver Do you feel safe at home: Yes Do you feel safe in your relationship?: Yes
--- NOTE | 2019-12-28 20:06 | ROE_ITS ---
Date of service: 12/27/19 Time of Service: 13:06 Operative Note Operative Note DATE OF PROCEDURE: 12/27/19 PRE-OP DIAGNOSIS: Left Knee Osteoarthritis POST-OP DIAGNOSIS: same PROCEDURE: Left Total Knee Replacement SURGEON: Roby Dee BILLET HEATER OPERATOR: Jennifer Poe ANESTHESIA: regional and spinal ESTIMATED BLOOD LOSS: 150 PATHOLOGY: none sent TOURNIQUET TIME: 0 COMPLICATIONS: None Patient was transported to: PACU Patient's condition: stable Implants: 1. Depuy Attune Cementless Cruciate Retaining Femoral Component, Size 4 2. Depuy Attune Cementless Rotating Platform Tibial Component, Size 3 3. Depuy Attune 4x6mm CR/RP Poly 4. Depuy Attune Patellar Component, Size 35 Indications: I have seen Benny in clinic for symptoms of knee arthritis, confirmed with radiographic findings. Benny has exhausted nonoperative methods and was having significant limitations in daily function and desired better function and less pain. I discussed the technical details of a knee replacement. I explained the risks of the procedure to include, but not limited to, bleeding, infection, pain, stiffness, fracture, damage to nerves and vessels, damage to muscles and tendons, loosening, need for repeat procedure, blood clot and cardiopulmonary demise. Despite these risks, she elected to pr oceed. Findings: There was significant signs of arthritis throughout the knee. Procedure Description: Benny was greeted in the preoperative holding area where the correct side was identified and marked. The consent was reviewed with the patient and signed. The history and physical was updated. All questions were answered. Preoperative medications were administered: Acetaminophen 1000mg, Celebrex 400mg, and Gabapentin 300mg. An adductor canal block was then administered by the anesthesia team in the PACU. Benny was taken back to the operating room. A spinal anesthestic was then administered. The patient was placed into the supine position on the operating room table. A nonsterile tourniquet was placed high onto the leg but only used for cementing. Posts were placed for positioning during the procedure. All bony prominences were well padded. Prophylactic antibiotics in the form of C efazolin were administered. 1g of Tranxemic Acid was given intravenously within 30 minutes of incision. The left leg was then prepped with Chloraprep and draped in a standard fashion with impervious stockinette. A second prep with Chloraprep was performed prior to application of Iodine impregnated skin protection. A timeout to confirm correct identity, side and site, procedure, allergies, anesthesia, and medical concerns was performed. With the knee in some flexion, a midline incision was made overlying the knee. Full thickness skin flaps were raised once the extensor mechanism was encou ntered. These were raised medially and laterally. Any bleeding was controlled with electrocautery. Once the extensor mechanism was fully exposed, a medial parapatellar arthrotomy was performed in a flexed position. All bleeding from the arthrotomy and the geniculate arteries was coagulated. A medial subperiosteal peel was performed with electrocautery to the midcoronal plane. The fat pad was removed while keeping the patellar tendon protected. The anterior distal femur synovium was removed for later visualization. The ACL and PCL were resected and the anterior horn of the lateral meniscus was transected. The knee was then flexed with the patella everted. Large osteophytes from the tibia were removed. Large osteophytes from the femur were removed. Using a step drill, and based on preoperative templating, the femoral canal was entered. This was done with a step drill without any difficulty. The intramedullary distal femoral cut guide was inserted, set to a 5 degree valgus cut and 9mm cut thickness. The distal femoral cut guide was then held in position and pinned. With the soft tissues protected, the distal cut was performed. This was passed over a few times to ensure a planar cut. I then turned attention to the tibia. The extramedullary guide was placed onto the leg. The distal aspect was slid medial to adjust for position of center of ankle and stay in line with shaft of the tibia. Approximately 3-5 degrees of posterior slope was kept in the proximal cutting guide. The center of the guide was aligned with the PCL. The stylus was used to assess cut thickness. The medial side, most involved side, was set for a 3mm cut. This was then held in position and pinned into place with 2 additional pins and a cross pin for stability. The medial and lateral collateral ligaments were protected and the cut was performed. With this completed, it was assessed and noted to be of appropriate dimensions. The guide was removed. A spacer block was inserted and the knee was brought into extension. The 6mm spacer block provided full extension, without hyperextension and with stability of both the medial and lateral collateral ligaments was assessed. The pins from the femur and the tibia were then removed. The distal femur was then sized. The anterior stylus was placed onto the lateral ridge of the anterior femur. This indicated a size 6 femur. The external rotation of the guide was adjusted to 3 degrees to match the epicondylar axis, perpendicular to Brad?s line. The 4-in-1 cutting guide was the placed. The posterior medial femur cut was evaluated and appeared of good thickness. The spacer block was inserted underneath the cutting guide and stability was confirmed in 90 degrees of flexion. An ollie wing was used to confirm appropriate position of the anterior cut to avoid notching. This cutting guide was ensured to be flush on the cut surface and then pinned into place with headed pins. While protecting the soft tissues, quad tendon, and collateral ligaments, the anterior and posterior cuts were performed with a saw. The central two pins were removed and the posterior and anterior chamfers were cut next. The notch-cutting guide was placed. This was pinned to lateralize the femoral component as much as possible while keeping it flush on the cut surface. This was then pinned into position. A reciprocating saw was used to make the notch cut. A rasp smoothed the cut surfaces. The medial and lateral menisci were removed. A trial femoral component was then inserted, impacted down to the cut surfaces, and the lug holes were drilled. A provisional trial tibial component was placed and the knee was brought through range of motion. There was noted to be excellent extension and flexion. There was no significant instability. The patella was tracking without thumbs. A size 6mm polyethylene component provided the best range of motion and stability with less than 2mm gapping with medial and lateral stress and full extension without significant hyperextension. The tibial cut surface was fully exposed. The tibia was then sized as a 3. The tibia had been previously marked during trialing to correspond to the center of the tibial component to help with rotation. The trial was aligned to this jennifer, approximately rotated to the medial 1/3rd of the tibial tubercle. The trial was pinned into place. The tibia was prepared with a reamer and a keel punch and lug holes. The knee was then brought into extension and the patella was measured as 25mm. Using the patellar clamp and cut guide, this was resected to a flat surface with at least 13mm of thickness remaining. The size 35 patella fit the best. This was oriented and then clamped into position. The lugs were drilled. The trial components were removed. The final components were opened on the back table. The periosteal and capsular tissues, especially posteriorly, around the knee were then systematically injected with a periarticular cocktail consisting of 50cc 0.25% Marcaine, 30mg Ketorolac, 20cc of Exparal and 50cc of injectable saline. The knee was thoroughly irrigated with a pulse lavage and dried. Irrisept was also used to irrigate the tissues. On the back table, with the implants opened, the cement was mixed. One batche of high viscosity cement were prepared with vacuum assistance. After the cement was ready a small amount was placed on the cut surface of the patella and the patellar button was clamped into position and held. During this process attention was turned to the gutters of the knee and for all interfaces for any excess cement. While the cement was hardening, the cementless knee components were placed. Starting with the tibial component, the tibia was subluxed anteriorly and the lug holes of the component were lined up. The tibia was then impacted with an impactor and mallet until the tibial component was in contact with the tibia. The final polyethylene component was inserted. Then, the femoral component was inserted. The lug holes were aligned and the component was impacted into position. The knee was irrigated with Irrisept chlorhexadine solution. This was allowed to sit in the knee for 3 minutes. After the cement had finally cured, approximately 15min, the clamp was removed from the patella and the knee was taken through range of motion. The patella was tracking with a no-thumbs technique. The capsule was then reapproximated with a No. 1 Vicryl at multiple locations. The capsule was finally closed with a No. 2 Stratafix, barbed suture. The tourniquet was then released and the arthrotomy appeared watertight without significant bleeding. The second dosing of 1g TXA was started. Deep tissues were then reapproximated with 0 Vicryl and 2-0 Vicryl. The skin was closed with a running 3-0 Monocryl in a subcuticular fashion. This was reinforced with skin glue. A Mepilex silver dressing was applied along with a [id number] JOSE ARMANDO wrap. A CryoCuff was applied. Benny was transferred to the hospital bed without difficulty an suffering no apparent complication. Benny has a good prognosis. Physical therapy will start today and without restrictions, weight-bearing as tolerated. Aspirin 81mg BID will be used for DVT prophylaxis.
== END 2019-12-27 18:01 | disposition home or self-care (01) ==
LOC: PDS 13:00 → MS 13:00
PROVIDERS: Admitting Provider Student in an Organized Health Care Education/Training Program; PCP Nurse Practitioner; Visit Provider Student in an Organized Health Care Education/Training Program
PROC: (CPT 27447; principal; 2019-12-27 11:15)
DX: M17.12 Unilateral primary osteoarthritis, left knee (principal); M79.7 Fibromyalgia; K21.9 Gastro-esophageal reflux disease without esophagitis; E78.5 Hyperlipidemia, unspecified; I10 Essential (primary) hypertension; Z87.442 Personal history of urinary calculi
CPT/HCPCS: 27447; 76942; 97162; 97530; NC; G0378; J0690; J1885; J2001; J2250; J2405

== ENCOUNTER 2020-01-12 12:42 | Outpatient (CLI) | payer OTHER, SELFPAY ==
--- NOTE | 2020-01-12 11:45 | DI.RAD_ITS ---
EXAM: XR STANDING ALIGNMENT CLINICAL HISTORY: 1ST POST OP L TKA TECHNIQUE: COMPARISON: CR XR STANDING ALIGNMENT from 10/21/2019 CR XR KNEE LT 1V from 01/12/2020 FINDINGS: Bilateral AP standing alignment views and lateral view of the left knee are interpreted in conjunctio n. There appear to be mild degenerative changes of both hips. There is a total knee joint replaceme nt in position in the left knee. The components appear well seated. There is severe narrowing of medial tibiofemoral cartilaginous joint space on the right with medial f emoral subluxation on the tibia. There are moderate marginal osteophytes seen at multiple sites invo lving right knee. IMPRESSION: Left TKR in place, severe DJD medial tibiofemoral joint on the right. RADIATION DOSE DELIVERED: Total DLP
== END 2020-01-12 13:02 ==
PROVIDERS: PCP Nurse Practitioner; Referring Provider Nurse Practitioner; Visit Provider Student in an Organized Health Care Education/Training Program
DX: Z96.652 Presence of left artificial knee joint (principal); M17.11 Unilateral primary osteoarthritis, right knee; M16.0 Bilateral primary osteoarthritis of hip
CPT/HCPCS: 73560; 77073

== ENCOUNTER 2020-04-30 01:13 | Outpatient (CLI) | payer OTHER, SELFPAY ==
--- NOTE | 2020-04-30 | DI.RAD_ITS ---
EXAM: XR HIP LT COMPLETE AP PELVIS CLINICAL HISTORY: HIP PAIN, M25.559. TECHNIQUE: 2D digital imaging was performed. COMPARISON: No exams were available for comparison FINDINGS: There is no evidence of pelvic or hip fracture. Additional views of the left hip reveal minimal dege nerative changes. No joint space narrowing. No osseous lesions. No abnormal soft tissue calcificat ions. IMPRESSION: DATA REPOSITORY: RADIATION DOSE DELIVERED:
--- NOTE | 2020-04-30 | DI.RAD_ITS ---
EXAM: XR LUMBAR SPINE COMPLETE CLINICAL HISTORY: LUMBAGO WITH LT SCIATICA, M54.42. TECHNIQUE: 2D digital imaging was performed. COMPARISON: No exams were available for comparison FINDINGS: There is no evidence of fracture. Scoliosis convex left noted. Multilevel chronic degenerative disc disease with some disc space narrowing at each level and most prominent at L4-5 and L5-S1 levels.. There is mild retrolisthesis of L2 relative to L3. Mild-moderate facet arthropathy. Sacroiliac joints appear unremarkable. IMPRESSION: Multilevel degenerative disc disease and degenerative facet changes. Clinically indicated follow-up MRI can be performed. DATA REPOSITORY: RADIATION DOSE DELIVERED:
== END 2020-04-30 01:14 ==
LOC: DI 01:14
PROVIDERS: PCP Nurse Practitioner; Visit Provider Nurse Practitioner
DX: M47.816 Spondylosis without myelopathy or radiculopathy, lumbar region (principal); M54.42 Lumbago with sciatica, left side; M47.817 Spondylosis without myelopathy or radiculopathy, lumbosacral region; M25.552 Pain in left hip
CPT/HCPCS: 72110; 73502

== ENCOUNTER 2020-06-19 15:16 | Emergency (ER) | payer OTHER, SELFPAY ==
--- NOTE | 2020-06-19 15:30 | DI.US_ITS ---
EXAM: US LOWER EXTREMITY VENOUS LT CLINICAL HISTORY: left leg swelling. TECHNIQUE: Lower extremity venous ultrasound performed using grayscale, color-flow, and spectral Do ppler analysis. COMPARISON: No exams were available for comparison FINDINGS: The common femoral, femoral and popliteal veins demonstrate normal compressibility, augmentation, and color Doppler. The posterior tibial veins are patent. No saphenous vein thrombosis is seen. There are dilated superficial vessels in the mid to distal calf showing thrombus. This extends over appro ximately 10 centimeters in length. No hematoma or Albarran's cyst is seen. IMPRESSION: Superficial thrombophlebitis in the calf region. No evidence of DVT. DATA REPOSITORY:
--- NOTE | 2020-06-19 15:45 | ED.GENADUL_ITS ---
Discharge Plan Disposition Patient Disposition: HOME Discharge Details Clinical Impression: Superficial thrombophlebitis Primary Care Provider: Randa Galvez ED Provider: Bety Clemente Home Meds and New Rx's Prescriptions: No Action atorvastatin 20 mg tablet 10 mg PO DAILY RF: 0 furosemide [Lasix] 40 MG tablet 40 mg PO DAILY RF: 0 atenolol 100 MG tablet 100 mg PO DAILY RF: 0 meloxicam [Mobic] 15 MG tablet 15 mg PO DAILY RF: 0 lisinopril 10 MG tablet 10 mg PO DAILY RF: 0 sertraline [Zoloft] 25 MG tablet 50 mg PO DAILY RF: 0 acetaminophen 500 mg tablet 1,000 mg PO Q8H PRN (Reason: pain) Qty: 90 RF: 3 gabapentin 800 mg Tablet 800 mg PO QID RF: 0 esomeprazole magnesium [Nexium 24HR] 20 mg Capsule,Delayed Release(Dr/Ec) 20 mg PO DAILY RF: 0 Discharge Instructions Additional Instructions: You have a history of superficial thrombophlebitis, there is a clot in your superficial vessels but will likely resolve with ibuprofen I recommend ibuprofen 400 mg every 8 hours with food for the next 3 to 5 days Repeat ultrasound in 1 week with persistent symptoms recommended Elevate You may also wear compression stockings, warm compresses Discharge Data Discharge Date/Time-TO BE ENTERED AT DEPARTURE: 06/19/20 17:01 Medical Decision Making <DENI Stout - Last Filed: 06/20/20 14:15> Patient has completed quarantine, ultrasound ordered, no clinical evidence of pulmonary embolism, Patient will need vital signs as she was evaluated in the emergency room prior to triage exudate chair She is speaking in complete sentences, alert, oriented, and well in appearance at time of my evaluation She is pending ultrasound at this time Case signed out to Erin William pending ultrasound at 1600 Differential Diagnosis Differential Diagnosis: DVT, pulmonary embolism, CHF, thrombophlebitis Medical Records Medical records reviewed: Yes I reviewed the patient's medical records. <Bety Clemente - Last Filed: 06/20/20 00:32> Care assumed from provider (DENI Stout) please see your initial HPI and physical exam. Discussed patient details and case and pending workup and disposition. Patient is hemodynamically stable, and alert and oriented. Patient is awaiting her ultrasound results and discharge instructions. Imaging protocol: Real-time Duplex ultrasound of the Left Lower Extremity with 2-D ballesteros scale, color Doppler flow and spectral waveform analysis with image documentation. Limited exam focused on the left lower extremity veins. COMPARISON: No relevant prior studies available. FINDINGS: Left deep veins: Unremarkable. The common femoral, femoral, proximal profunda femoral and popliteal veins are patent without thrombus. Normal Doppler waveforms. Normal compressibility and/or augmentation response. Left superficial veins: Thrombosed noncompressible superficial veins are seen within the left mid and distal calf. Soft tissues: Unremarkable. IMPRESSION: 1. No evidence of deep vein thrombosis. 2. Superficial venous thrombosis within the left mid and distal calf is noted. HPI <DENI Stout - Last Filed: 06/20/20 14:15> This 64-year-old female presents with left calf pain for the past several days. She states that she was Covid positive on the and have finished her quarantine on the . She denies any chest pain or shortness of breath. Denies any fevers or chills. She denies any recent flights, surgeries, long drives. She is feeling completely recovered from Covid virus reportedly. General Date/Time Provider Initiated Documentation: 06/19/20 15:18 . Related Data Home Medications Medication Instructions Recorded Confirmed atenolol 100 mg PO DAILY tab-cap NS 12/09/16 06/19/20 furosemide [Lasix] 40 mg PO DAILY tab-cap NS 12/09/16 06/19/20 lisinopril 10 mg PO DAILY tab-cap NS 12/09/16 06/19/20 meloxicam [Mobic] 15 mg PO DAILY tab-cap NS 12/09/16 06/19/20 sertraline [Zoloft] 50 mg PO DAILY tab-cap NS 12/09/16 06/19/20 atorvastatin 20 mg tablet 10 mg PO DAILY 12/23/19 06/19/20 acetaminophen 1,000 mg PO Q8H PRN #90 tab 12/27/19 06/19/20 esomeprazole magnesium [Nexium 20 mg PO DAILY 06/19/20 06/19/20 24HR] gabapentin 800 mg PO QID 06/19/20 06/19/20 Previous Rx's Medication Instructions Recorded acetaminophen 1,000 mg PO Q8H PRN #90 tab 12/27/19 Allergies Allergy/AdvReac Type Severity Reaction Status Date / Time No Known Allergies Allergy Unverified 06/19/20 16:41 General JAKE: 3 <Bety Clemente - Last Filed: 06/20/20 00:32> This 64-year-old female presents with left calf pain for the past several days. She states that she was Covid positive on the and have finished her quarantine on the . She denies any chest pain or shortness of breath. De nies any fevers or chills. She denies any recent flights, surgeries, long drives. She is feeling completely recovered from Covid virus reportedly. Review of Systems <DENI Stout - Last Filed: 06/20/20 14:15> Narrative: Review of systems negative x7 aside from where indicated in HPI PFSH <DENI Stout - Last Filed: 06/20/20 14:15> Medical History Antibiotic-associated diarrhea Colitis due to Clostridium difficile Fibromyalgia Gallstones Gallstones without obstruction of gallbladder GERD (gastroesophageal reflux disease) Hyperlipidemia Hypertension Infected hematoma following procedure Kidney stones Surgical History EGD - MAC (12/24/16) , Ectopic S/P laparoscopic cholecystectomy (~06/15/19) Status post total left knee replacement (12/27/19) Tonsillectomy Social History Smoking/Tobacco Use Status: Current every day Tobacco Type: e-cigarettes Tobacco: How many years used: 40 Smokeless tobacco user: other Smoking risk assessment performed?: Yes Alcohol Intake: current Alcohol Intake frequency: a few times a month Alcohol type: hard liquor Drug use: Never Substance use type: does not use Details: PT USES ELECTRONIC CIGARETTES current occupation: caregiver Do you feel safe at home: Yes Do you feel safe in your relationship?: Yes Exam <DENI Stout - Last Filed: 06/20/20 14:15> Const General: cooperative and comfortable Chest Chest: normal inspection of the chest Resp Effort & Inspection: normal respiratory effort Cardio Rate: regular rate Skin General skin exam: no rashes or lesions noted Extrem Other: Swelling and tenderness to left distal calf, distal pulses intact, sensation intact distally No erythema Sign Out <DEIN Stout - Last Filed: 06/20/20 14:15> Sign Out Data: Sign Out Comment: pending vrad dvt study and triage, pt not yet notificed written to go Last updated by Aleyda Duron PA at 06/19/20 16:17
--- NOTE | 2020-06-19 16:18 | DI.VRAD_ITS ---
PROCEDURE INFORMATION: Exam: US Duplex Left Lower Extremity Veins, Limited Exam date and time: 06/19/2020 4:04 PM Age: 64 years old Clinical indication: Pain; Leg, lower; Left; Patient HX: + covid test 06/13/2020 TECHNIQUE: Imaging protocol: Real-time Duplex ultrasound of the Left Lower Extremity with 2-D ballesteros scale, color Doppler flow and spectral waveform analysis with image documentation. Limited exam focused on the left lower extremity veins. COMPARISON: No relevant prior studies available. FINDINGS: Left deep veins: Unremarkable. The common femoral, femoral, proximal profunda femoral and popliteal veins are patent without thrombus. Normal Doppler waveforms. Normal compressibility and/or augmentation response. Left superficial veins: Thrombosed noncompressible superficial veins are seen within the left mid and distal calf. Soft tissues: Unremarkable. IMPRESSION: 1. No evidence of deep vein thrombosis. 2. Superficial venous thrombosis within the left mid and distal calf is noted. Dictated and Authenticated by: Robert Hanson MD. Ordering:CURLY Maynard MD
[2020-06-19 16:38] VITALS: BP 156/98; PULSE 70; RESP 20; TEMP 36.5; O2SAT 99
== END 2020-06-19 17:01 | disposition home or self-care (01) ==
PROVIDERS: Emergency Provider Registered Nurse Emergency; PCP Nurse Practitioner
DX: I80.02 Phlebitis and thrombophlebitis of superficial vessels of left lower extremity (principal); Z86.16 Personal history of COVID-19
CPT/HCPCS: 99284; 93971

== ENCOUNTER 2021-04-09 10:58 | Outpatient (CLI) | payer OTHER, SELFPAY ==
--- NOTE | 2021-04-09 10:45 | DI.RAD_ITS ---
Exam(s) XR KNEE LT 2V AP,LAT EXAM: XR KNEE LT 2V AP,LAT CLINICAL HISTORY: annual f/u L TKA. TECHNIQUE: 2D digital imaging was performed of the left knee. Two images were obtained. AP and lat eral views were obtained. COMPARISON: CR XR KNEE LT 1V from 01/12/2020 CR XR STANDING ALIGNMENT from 01/12/2020 FINDINGS: BONES: No acute fracture is present. No bony destructive lesion is seen. JOINTS: There is stable postsurgical changes of a left total knee replacement. There is a small join t effusion. SOFT TISSUE: Normal. IMPRESSION: Left TKR. DATA REPOSITORY: RADIATION DOSE DELIVERED:
== END 2021-04-09 10:59 | disposition home or self-care (01) ==
LOC: DIORS 10:58
PROVIDERS: PCP Nurse Practitioner; Referring Provider Nurse Practitioner; Visit Provider Student in an Organized Health Care Education/Training Program
DX: Z96.652 Presence of left artificial knee joint (principal); Z47.1 Aftercare following joint replacement surgery
CPT/HCPCS: 73560

== ENCOUNTER 2022-06-09 14:43 | Outpatient (CLI) | payer MEDICARE, SELFPAY ==
--- NOTE | 2022-06-09 14:00 | DI.RAD_ITS ---
Exam(s) XR STANDING ALIGNMENT XR KNEE RT 1V EXAM: XR STANDING ALIGNMENT CLINICAL HISTORY: TKA planning. TECHNIQUE: 2D digital imaging was performed. Standing AP views were performed from the pelvis throu gh the ankles. Lateral view right knee. COMPARISON: CR XR LEFT KNEE 3VIEWS from 03/02/2019 CR XR KNEE LT 1V from 01/12/2020 CR XR KNEE LT 2V AP,LAT from 04/09/2021 CR XR KNEE RT 1V from 06/09/2022 FINDINGS: BONES: No acute fracture is present. No bony destructive lesion is seen. Leg length discrepancy: Approximate 15 millimeter length discrepancy with the left femoral head proje cting superior to the right. JOINTS: Knees: Right knee: Severe degenerative changes medial femoral tibial joint with some varus an gulation. Left knee stable appearance of total knee prosthesis. The ankle joints are unremarkable. The hip joints show acetabular spurring SOFT TISSUE: Lower leg edema. IMPRESSION: Severe degenerative changes right knee. Unremarkable left knee prosthesis. . Approximately 1.5 centimeter leg length discrepancy. DATA REPOSITORY: RADIATION DOSE DELIVERED:
== END 2022-06-09 14:44 | disposition home or self-care (01) ==
LOC: DIORS 14:44
PROVIDERS: PCP Nurse Practitioner; Referring Provider Nurse Practitioner; Visit Provider Student in an Organized Health Care Education/Training Program
DX: M17.11 Unilateral primary osteoarthritis, right knee (principal)
CPT/HCPCS: 99214; 73560; 77073

== ENCOUNTER 2022-06-09 15:12 | Outpatient (CLI) | payer MEDICARE, SELFPAY ==
[2022-06-09 15:58] LABS: HCT 38.1 % (36.0-46.0); HGB 12.6 g/dL (11.2-15.7); MCH 30.6 pg (27.0-33.0); MCHC 33.1 % (32.0-36.0); MCV 93 fL (80-95); Platelet Count 224 10^3/uL (130-400); RBC 4.12 10^6/uL (3.93-5.22); RDW 13.1 % (11.7-14.6); RDW-SD 44.3 fL; WBC 6.56 10^3/uL (4.4-10.8)
[2022-06-09 16:16] LABS: Anion Gap 8.7 mmol/L (3-11); BUN 18 mg/dL (7-18); CO2 28.3 mmol/L (21.0-32.0); Calcium 8.8 mg/dL (8.5-10.1); Chloride 103 mmol/L (98-107); Estimated GFR 62.52 (mL/min/1.73m2); Glucose 99 mg/dL (74-106); Potassium 3.8 mmol/L (3.5-5.1); Sodium 140 mmol/L (136-145)
== END 2022-06-09 15:13 | disposition home or self-care (01) ==
LOC: LBO 15:14
PROVIDERS: PCP Nurse Practitioner; Visit Provider Student in an Organized Health Care Education/Training Program
DX: M25.561 Pain in right knee (principal); M17.11 Unilateral primary osteoarthritis, right knee; Z01.818 Encounter for other preprocedural examination; Z01.812 Encounter for preprocedural laboratory examination
CPT/HCPCS: 36415; 80048; 85027

== ENCOUNTER 2022-07-02 08:08 | Day surgery (SDC) | payer MEDICARE, SELFPAY ==
[2022-07-02] VITALS (13 sets, daily range): BP systolic 82–176; BP diastolic 36–132; PULSE 56–71; RESP 12–21; TEMP 36–36.5; O2SAT 93–98; BMI 40.6
[2022-07-02] MEDS: Lactated Ringers 1,000 ML 80 ML IV (09:20)
--- NOTE | 2022-07-02 09:39 | ANES.PREOP_ITS ---
General Info Date of Service Date Performed: 07/02/22 Height: 5 ft 7 in Weight: 117.7 kg Body Mass Index (BMI): 40.6 Surgical Procedure: Operation Date: 07/02/22 10:55 Proposed Procedure Side Surgeon p Knee Total Arthroplasty, Cementless CR (4 Femur, 3 Tibia) Right Roby Dee MD Meds Allergies and Home Medications Allergies Allergy/AdvReac Type Severity Reaction Status Date / Time No Known Allergies Allergy Unverified 07/02/22 08:24 Home Medication Medication Instructions Recorded Lasix 40 mg tablet (furosemide) 40 mg PO DAILY 12/09/16 Mobic 15 mg tablet (meloxicam) 15 mg PO DAILY 12/09/16 Zoloft 25 mg tablet (sertraline) 50 mg PO DAILY 12/09/16 atenolol 100 mg tablet 100 mg PO DAILY 12/09/16 lisinopril 10 mg tablet 10 mg PO DAILY 12/09/16 acetaminophen 500 mg tablet 1,000 mg PO Q8H PRN pain #90 tabs 12/27/19 gabapentin 800 mg tablet 800 mg PO QID 06/19/20 aspirin 81 mg tablet,delayed 325 mg PO DAILY 06/09/22 release (Adult Aspirin Regimen) carbamazepine 100 mg 100 mg PO BID 06/09/22 tablet,extended release,12 hr (Tegretol XR) omeprazole 10 mg capsule,delayed 40 mg PO DAILY 06/09/22 release trazodone 50 mg tablet 50 mg PO DAILY 06/09/22 Current Visit Medications: Current Medications Generic Name Dose Route Start Last Admin Trade Name Freq PRN Reason Stop Dose Admin Acetaminophen 1,000 mg 07/02/22 06:00 Acetaminophen 500 Mg Tab PO 07/02/22 16:00 PREOP GERMAN Acetaminophen 1,000 mg 07/02/22 07:31 Acetaminophen 500 Mg Tab PO TID PRN PRN Pain Celecoxib 400 mg 07/02/22 06:00 Celecoxib 200 Mg Cap PO 07/02/22 16:00 PREOP GERMAN Docusate Sodium 100 mg 07/02/22 07:31 Docusate Sodium 100 Mg Cap PO BID PRN PRN Constipation Gabapentin 300 mg 07/02/22 06:00 Gabapentin 300 Mg Cap PO 07/02/22 16:00 PREOP GERMAN Tranexamic Acid 1,000 mg/ 60 mls @ 360 mls/hr 07/02/22 06:00 Sodium Chloride IVPB 07/02/22 16:00 PREOP GERMAN Ringer's Solution 1,000 mls @ 80 mls/hr 07/02/22 06:00 IV 07/13/22 23:59 INFUSION GERMAN Cefazolin Sodium 3,000 mg/ 100 mls @ 200 mls/hr 07/02/22 06:00 Sodium Chloride IVPB 07/02/22 16:00 PREOP [facility] IV Miscellaneous Supplies 1 each 07/02/22 06:00 Iv Access IV 07/13/22 23:59 DIRECTED GERMAN Ondansetron HCl 4 mg 07/02/22 07:31 Ondansetron 4 Mg/2 Ml Vial IVP Q6H PRN PRN Nausea Oxycodone HCl 0 mg 07/02/22 07:31 Oxycodone 5 Mg Tab PO Q3H PRN PRN Pain Polyethylene Glycol 17 gm 07/02/22 07:31 Polyethylene Glycol 3350 17 Gm Packet PO BID PRN PRN Constipation Sodium Chloride 0 ml 07/02/22 06:00 Normal Saline Flush 10 Ml Syr IV 07/13/22 23:59 PRN PRN Sodium Chloride 0 ml 07/02/22 06:00 Normal Saline 10 Ml Vial IJ 07/13/22 23:59 DIRECTED PRN Sterile Water 0 ml 07/02/22 06:00 Water,Injection,Sterile 10 Ml Vial IJ 07/13/22 23:59 DIRECTED PRN PFSH Active Problems Active Problems: Problem Status Onset Code Infected hematoma following procedure Antibiotic-associated diarrhea K52.1, T36.95XA Colitis due to Clostridium difficile A04.72 Degenerative joint disease of knee, right M17.11 Degenerative joint disease of knee, left M17.12 Impingement syndrome of right shoulder M75.41 Mass of right ankle R22.41 Hyperlipidemia E78.5 Status post total left knee replacement 12/27/19 Z96.652 Superficial thrombophlebitis I80.9 Medical History Medical History (Updated 07/02/22 @ 08:54 by Lizzy Lentz) Fibromyalgia Gallstones Gallstones without obstruction of gallbladder GERD (gastroesophageal reflux disease) History of depression Hx of backache Hypertension Idiopathic pancreatitis Kidney stones Medical History Comments:: pt. reports itchy rash in with contrast dye in the past. Daughter couldnt open eyes and was twitching. Pt. used e cigarette upon arrival today. Pt. reports procedure on her back Apr 22, 2022, thinks it was a steroid injection Surgical History Surgical History (Updated 07/02/22 @ 08:32 by Lizzy Lentz) EGD - MAC (12/24/16) Hx of colonoscopy , Ectopic S/P laparoscopic cholecystectomy (~06/15/19) Tonsillectomy Tobacco Smoking/Tobacco Use Status: Current every day Tobacco Type: e-cigarettes Smokeless tobacco user: other Alcohol Alcohol Intake: current Alcohol intake frequency: a few times a month Alcohol type: hard liquor Substance Use Substance use: Never Substance use type: does not use Details: PT USES ELECTRONIC CIGARETTES, last used before entry to hospital today. Last alcohol was 06/27/22 Vital Signs and Lab Results Vital Signs Most Recent Vital Signs in EMR: Most Recent Vital Signs Temp Pulse Resp BP Pulse Ox 36.3 C L 60 12 161/92 H 98 07/02/22 08:47 07/02/22 08:47 07/02/22 08:47 07/02/22 08:47 07/02/22 08:47 Lab Results Blood Type / Crossmatch: No Data to Display Complete Blood Count: White Blood Count 6.56 10^3/uL (4.4-10.8) 06/09/22 15:16 Red Blood Count 4.12 10^6/uL (3.93-5.22) 06/09/22 15:16 Hemoglobin 12.6 g/dL (11.2-15.7) 06/09/22 15:16 Hematocrit 38.1 % (36.0-46.0) 06/09/22 15:16 Platelet Count 224 10^3/uL (130-400) 06/09/22 15:16 Complete Metabolic Panel: Sodium 140 mmol/L (136-145) 06/09/22 15:16 Potassium 3.8 mmol/L (3.5-5.1) 06/09/22 15:16 Chloride 103 mmol/L (98-107) 06/09/22 15:16 Carbon Dioxide 28.3 mmol/L (21.0-32.0) 06/09/22 15:16 BUN 18 mg/dL (7-18) 06/09/22 15:16 Creatinine 1.0 mg/dL (0.55-1.02) 06/09/22 15:16 Est GFR (CKD-EPI 2020) 62.52 (mL/min/1.73m2) 06/09/22 15:16 Calcium 8.8 mg/dL (8.5-10.1) 06/09/22 15:16 Glucose 99 mg/dL (74-106) 06/09/22 15:16 Liver Function Panel: No Data to Display Coagulation Panel: No Data to Display Cardiac Panel: No Data to Display Arterial Blood Gas: No Data to Display Venous Blood Gas: No Data to Display Pancreas Panel: No Data to Display Thyroid Panel: No Data to Display Infectious Disease: No Data to Display Blood Cultures: No Data to Display Toxicology Panel: No Data to Display Anesthesia Assessment and Plan Anesthesia History Personal History: No History of Anesthesia Complications Family History: Other Exercise Tolerance Exercise Tolerance: Metabolic Equivalents>4 Pertinent Negatives Pertinent Negatives: No Symptoms of GERD, No Major Cardiovascular Symptoms or Complaints and No Major Pulmonary Symptoms or Complaints Cardiac & Pulmonary Exam Cardiac Exam: Normal S1/S2 Heart Sounds Pulmonary Exam: Clear Bilateral Breath Sounds Implantable Cardiac Device Does patient have a Pacemaker or an ICD?: No Airway Exam Known Difficult Airway: No Mallampati Class: 1 Mouth Opening: Normal (> 3cm) Thyromental Distance: Greater than 3 cm Neck Range of Motion: Full ROM Neck Circumference: Normal Teeth Condition: Normal Dentition ASA Classification ASA Score: ASA 3 Emergency Case?: No NPO Status NPO Status: NPO Clears >2 hours, Solids >8 hours Anesthesia Plan Resuscitation Status: Full Code Anesthesia Technique: Spinal Anesthesia Airway Planned: Natural Airway Pain Management: Surgeon and patient request nerve block Monitors Used: Standard Monitors
[2022-07-02] MEDS: Acetaminophen 500 MG TAB 1000 MG PO (09:56)
[2022-07-02] MEDS: Celecoxib 200 MG CAP 400 MG PO (09:56)
[2022-07-02] MEDS: Gabapentin 300 MG CAP PO (09:57)
--- NOTE | 2022-07-02 10:36 | W.ANESNERVE ---
Nerve Block Single Injection Procedure Date and Time Date Performed: 07/02/22 Procedure Start: 10:15 Location Where Procedure Performed Procedure Location: Day Surgery Unit Reason Performed: Postoperative Analgesia Requesting Provider: Roby Dee Timeout Performed Timeout Performed: Yes Monitoring Used ECG, Blood Pressure, SpO2 and See EMR for corresponding vital signs Sterility Sterility: Hand Hygiene, Surgical Cap, Surgical Mask, Sterile Gloves, Sterile Drape/Sheet and Chlorhexidine Sedation Given During Procedure Sedation Given (Indicate Dose Given): No Sedation given Patient Mental Status Patient Mental Status: Awake Nerve Block 1st Nerve Block: Laterality: Right Block Type: Adductor Canal Ultrasound Image Saved?: Yes Needle / Catheter Used: 120mm SonoPlex II Local Anesthetic Bolus (Indicate Dose Given): Lidocaine used for local infiltration of skin, Injected in 3-5ml increments after negative blood aspiration and Bupivacaine 0.25% Dose:: 20ml Additives (Indicate Dose Given): None Ultrasound: Sterile probe cover and gel used Nerve Stimulator: Not Used Paresthesia: None Procedure Tolerated: No Complications and Patient tolerated well Procedure Outcome: Successful Procedure Comment: Straight forward block, just deep. Performed By: Antony Mendez
--- NOTE | 2022-07-02 10:46 | W.PM.DSUDISC ---
Date of service: 07/02/22 Time of Service: 10:47 Discharge Plan Disposition Patient Disposition: Home Condition: Good Discharge Details Reason For Visit: R TKR Attending Provider: Roby Dee Primary Care Provider: Randa Galvez Home Meds and New Rx's Prescriptions: New acetaminophen 500 mg tablet 1,000 mg PO TID Qty: 90 3RF dexamethasone 4 mg tablet 4 mg PO DAILY Qty: 2 0RF oxycodone 5 mg tablet 5 mg PO Q4H MDD 6 tabs PRN (Reason: pain) Qty: 20 0RF meloxicam 15 mg tablet 15 mg PO DAILY Qty: 90 3RF Continued omeprazole 10 mg capsule,delayed release(DR/EC) 40 mg PO DAILY Patient Comments: pt. reports 40 mg carbamazepine [Tegretol XR] 100 mg tablet extended release 12 hr 100 mg PO BID aspirin [Adult Aspirin Regimen] 81 mg tablet,delayed release (DR/EC) 325 mg PO DAILY Patient Comments: pt. reports she takes a 325 mg, about a week ago trazodone 50 mg tablet 50 mg PO DAILY furosemide [Lasix] 40 MG tablet 40 mg PO DAILY atenolol 100 MG tablet 100 mg PO DAILY lisinopril 10 MG tablet 10 mg PO DAILY sertraline [Zoloft] 25 MG tablet 50 mg PO DAILY gabapentin 800 mg Tablet 800 mg PO QID Discontinued meloxicam [Mobic] 15 MG tablet 15 mg PO DAILY acetaminophen 500 mg tablet 1,000 mg PO Q8H PRN (Reason: pain) Qty: 90 3RF Discharge Instructions Additional Instructions: Total Knee Discharge Instructions Activity: The most important activity is to walk and to work on gentle motion (both flexion and extension). You should try to take short walks a few times a day. It is important that when resting you work on keeping the knee straight. Avoid putting a pillow behind the knee as this will encourage flexion. Work on range of motion exercises as provided by Physical Therapy. - Start outpatient physical therapy within 2 weeks. - You should wear the FELY hose on both legs for 2 weeks. You may remove these at night. You may also use any compression sock in place of the FELY hose. - Utilize [employer] to review exercises, see videos on exercises and obtain basic information pertaining to your surgery and your recovery. Dressing: Remove the Marcelo wrap by 2 days after your surgery and put on the FELY stocking given to you from the hospital. Keep the surgical dressing (underneath the MARCELO wrap) in place for at least one week. After the first week it may be removed and replaced with light gauze and tape or nothing. The wound and dressing may get wet after 3 days but avoid soaking the dressing or otherwise it will need to be changed. Many people prefer covering the dressing with cling wrap (saran wrap) to minimize it from getting soaked. If it gets wet, just pat dry. If it starts to peel off then it will need to be changed. Medications: - You should take Tylenol and anti-inflammatory Meloxicam as your primary pain medication. - You have been prescribed a stronger pain medication Oxycodone for breakthrough pain, take as needed as prescribed. - You will continue your omeprazole to help reduce stomach acid and reflux. - You will resume your asprin 325 for DVT prevention unless instructed otherwise. You need at least 162mg Aspirin per day for blood clot prevention. - You have also been prescribed Decadron to take to control post-operative nausea and pain. You will start this tomorrow. - If you have constipation you should take Colace or Miralax (both [id number]). It takes most people 3-4 days to have a bowel movement. Follow-up: 2 weeks If you have any acute concerns or questions, please do not hesitate to contact the office at [phone]. You may contact Dr. Dee with any questions after hours through the hospital at [phone] or on his cell phone at [phone]. Stand Alone Forms: Anesthesia Discharge Inst., Salas.Nerve Block Instructions, Rtuhy Cordero (DSU) Referrals: Roby Dee MD [ [facility] STAFF PHYSICIAN] - Equipment/Supplies: Walker Activity:: Activity as Tolerated Shower/Bathe:: 48 hours and Cover Diet:: As Tolerated Discharge Orders Discharge Orders: Discharge Order (Routine); Ordered 07/02/22 Ordered By: David Poe
[2022-07-02] MEDS: ceFAZolin 3,000 MG in Normal Saline 100 ML 200 MG IVPB (11:13)
--- NOTE | 2022-07-02 13:44 | W.PM.OP ---
Date of service: 07/02/22 Time of Service: 13:44 Operative Note Operative Note DATE OF PROCEDURE: 07/02/22 PRE-OP DIAGNOSIS: Right Knee Osteoarthritis POST-OP DIAGNOSIS: same PROCEDURE: Right Total Knee Replacement SURGEON: Roby Dee ANESTHESIA TYPE: General LMA/ETT and Spinal Refer to Anesthesia Record ESTIMATED BLOOD LOSS: 300 PATHOLOGY: none sent TOURNIQUET TIME: 0 COMPLICATIONS: None Patient was transported to: PACU Patient's condition: stable Implants: 1. Depuy Attune Cementless Cruciate Retaining Femoral Component, Size 5 2. Depuy Attune Cementless Fixed Bearing Tibial Component, Size 4 3. Depuy Attune 5x6 CR/FB Poly 4. Depuy Attune Patellar Component, Size 32 Indications: I have seen Benny in clinic for symptoms of knee arthritis, confirmed with radiographic findings. She has exhausted nonoperative methods and was having significant limitations in daily function and desired better function and less pain. I discussed the technical details of a knee replacement. I explained the risks of the procedure to include, but not limited to, bleeding, infection, pain, stiffness, fracture, damage to nerves and vessels, damage to muscles and tendons, loosening, need for repeat procedure, blood clot and cardiopulmonary demise. Despite these risks, Benny elected to proceed. Findings: There was significant signs of arthritis throughout the knee involving all 3 compartments. There is significant deformity of the patella with scalloping of the patella and overall very narrow thickness. Large osteophytes are present throughout. Procedure Description: Benny was greeted in the preoperative holding area where the correct side was identified and marked. The consent was reviewed with the patient and signed. The history and physical was updated. All questions were answered. Preoperative medications were administered: Acetaminophen 1000mg, Celebrex 400mg, and Gabapentin 300mg. An adductor canal block was then administered by the anesthesia team in the PACU. Benny was taken back to the operating room. A spinal anesthetic was attempted but was unsuccessful after multiple attempts. Therefore, a general anesthetic was performed. The patient was placed into the supine position on the operating room table. A nonsterile tourniquet was placed high onto the leg but only used for cementing. Posts were placed for positioning during the procedure. All bony prominences were well padded. Prophylactic antibiotics in the form of Cefazolin were administered. 1g of Tranxemic Acid was given intravenously within 30 minutes of incision. The right leg was then prepped with Chloraprep and draped in a standard fashion with impervious stockinette. A second prep with Chloraprep was performed prior to application of Iodine impregnated skin protection. A timeout to confirm correct identity, side and site, procedure, allergies, anesthesia, and medical concerns was performed. With the knee in some flexion, a midline incision was made overlying the knee. Full thickness skin flaps were raised once the extensor mechanism was encountered. These were raised medially and laterally. Any bleeding was controlled with electrocautery. Once the extensor mechanism was fully exposed, a medial parapatellar arthrotomy was performed in a flexed position. All bleeding from the arthrotomy and the geniculate arteries was coagulated. A medial subperiosteal peel was performed with electrocautery to the midcoronal plane. Due to the significant varus deformity the entire medial tibial plateau was exposed. The fat pad was removed while keeping the patellar tendon protected. The anterior distal femur synovium was removed for later visualization. The ACL and PCL were resected and the anterior horn of the lateral meniscus was transected. The knee was then flexed with the patella everted. Large osteophytes from the tibia were removed. Large osteophytes from the femur were removed. There was notable deformity of the patella with a scalloped lesion, thin to about 12 mm in the central portion. Using a step drill, and based on preoperative templating, the femoral canal was entered. This was done with a step drill without any difficulty. The intramedullary distal femoral cut guide was inserted, set to a 5 degree valgus cut and 9mm cut thickness. The distal femoral cut guide was then held in position and pinned. With the soft tissues protected, the distal cut was performed. This was passed over a few times to ensure a planar cut. I then turned attention to the tibia. The extramedullary guide was placed onto the leg. The distal aspect was slid medial to adjust for position of center of ankle and stay in line with shaft of the tibia. Approximately 3-5 degrees of posterior slope was kept in the proximal cutting guide. The center of the guide was aligned with the PCL. The stylus was used to assess cut thickness. The medial side, most involved side, was set for a 4mm cut. This was then held in position and pinned into place with 2 additional pins and a cross pin for stability. The medial and lateral collateral ligaments were protected and the cut was performed. With this completed, it was assessed and noted to be of appropriate dimensions. The guide was removed. A spacer block was inserted and the knee was brought into extension. The 6mm spacer block provided full extension, without hyperextension and with stability of both the medial and lateral collateral ligaments was assessed. The pins from the femur and the tibia were then removed. The distal femur was then sized. The anterior stylus was placed onto the lateral ridge of the anterior femur. This indicated a size 5 femur. The external rotation of the guide was adjusted to 3 degrees to match the epicondylar axis, perpendicular to Brad?s line. The 4-in-1 cutting guide was the placed. The posterior medial femur cut was evaluated and appeared of good thickness. The spacer block was inserted underneath the cutting guide and stability was confirmed in 90 degrees of flexion. An ollie wing was used to confirm appropriate position of the anterior cut to avoid notching. This cutting guide was ensured to be flush on the cut surface and then pinned into place with headed pins. While protecting the soft tissues, quad tendon, and collateral ligaments, the anterior and posterior cuts were performed with a saw. The central two pins were removed and the posterior and anterior chamfers were cut next. The notch-cutting guide was placed. This was pinned to lateralize the femoral component as much as possible while keeping it flush on the cut surface. This was then pinned into position. A reciprocating saw was used to make the notch cut. A rasp smoothed the cut surfaces. The medial and lateral menisci were removed. A trial femoral component was then inserted, impacted down to the cut surfaces, and the lug holes were drilled. A provisional trial tibial component was placed and the knee was brought through range of motion. The patella was tracking without thumbs. A size 6mm polyethylene component provided the best range of motion and stability with less than 2mm gapping with medial and lateral stress and full extension without significant hyperextension. The tibial cut surface was fully exposed. The tibia was then sized as a 4. The tibia had been previously marked during trialing to correspond to the center of the tibial component to help with rotation. The trial was aligned to this jennifer, approximately rotated to the medial 1/3rd of the tibial tubercle. The trial was pinned into place. The tibia was prepared with a reamer and a keel punch and lug holes. The knee was then brought into extension and the patella was addressed. Using the patellar clamp and cut guide, this was resected to a flat surface based on the low spot of the scalloped lesion centrally within the patella. The size 32 patella fit the best. This was oriented and then clamped into position. The lugs were drilled. The trial components were removed. The final components were opened on the back table. The periosteal and capsular tissues, especially posteriorly, around the knee were then systematically injected with a periarticular cocktail consisting of 246mg of Ropivacaine, 0.5mg of Epinephrine, 0.08mg of Clonidine, and 30mg of Ketorolac, diluted to 100cc. On the back table, with the implants opened, the cement was mixed. One batch of high viscosity cement was prepared with vacuum assistance. After the cement was ready a small amount was placed on the cut surface of the patella and the patellar button was clamped into position and held. While the cement was hardening, the cementless knee components were placed. Starting with the tibial component, the tibia was subluxed anteriorly and the lug holes of the component were lined up. The tibia was then impacted with an impactor and mallet until the tibial component was in contact with the tibia. The final polyethylene component was inserted. Then, the femoral component was inserted. The lug holes were aligned and the component was impacted into position. The knee was irrigated with Surgiphor Betadine solution. This was allowed to sit in the knee for 3 minutes and then it was irrigated out with saline. After the cement had finally cured, approximately 15min, the clamp was removed from the patella and the knee was taken through range of motion. The patella was tracking with a no-thumbs technique. The capsule was then reapproximated with a No. 1 Vicryl at multiple locations. The capsule was finally closed with a No. 2 Stratafix, barbed suture. The second dosing of 1g TXA was started. Deep tissues were then reapproximated with 0 Vicryl and 2-0 Vicryl. The skin was closed with a running 3-0 Monocryl in a subcuticular fashion. This was reinforced with skin glue. A Mepilex silver dressing was applied along with a naiv-sn-gfhzo JOSE ARMANDO wrap. A CryoCuff was applied. Benny was transferred to the hospital bed without difficulty an suffering no apparent complication. She has a good prognosis. Physical therapy will start today and without restrictions, weight-bearing as tolerated. Aspirin 81mg BID will be used for DVT prophylaxis.
[2022-07-02] MEDS: ePHEDrine 25 MG/5 ML Syringe IVP (13:56)
[2022-07-02] MEDS: LORazepam 2 MG/ML VIAL 0.5 MG IVP (14:04)
--- NOTE | 2022-07-02 15:27 | W.ANESPOSTOP ---
Postoperative Evaluation Date, Time and Location Date Performed: 07/02/22 Time Performed: 15:27 Patient Location: Day Surgery Unit Vital Signs Most Recent Imported Vital Signs: Most Recent Vital Signs Temp Pulse Resp BP Pulse Ox 36.2 C L 59 L 13 149/72 H 94 07/02/22 14:47 07/02/22 14:47 07/02/22 14:47 07/02/22 14:47 07/02/22 14:47 Pain Score Most Recent Pain Score: Most Recent Pain Score Pain Level 4 07/02/22 14:47 Assessment Mental Status: Awake (Alert & Oriented to Patient Baseline) Airway and Respiratory Function: Patent airway with normal (patient baseline) respiratory exam Cardiovascular Function: Hemodynamically Stable Hydration Status: Adequately Hydrated Nausea & Vomiting: No Nausea or Vomiting Pain: Pain is tolerable per patient Peripheral Nerve Block: Regional nerve block not resolved at time of post operative discharge Postoperative Comments:: Pt is crying, sad about the loss of her . Her back pain is her normal back discomfort, probably made worse by surgical positioning. Neuro exam normal.
[2022-07-02] MEDS: oxyCODONE 5 MG TAB PO (15:36)
--- NOTE | 2022-07-02 16:07 | IN_ITS ---
PT Notes Visit Reasons: R TKR Physical Therapy Day Surgery Initial Evaluation Date: 07/02/2022 Referring Doctor: DENI Burks PT Orders: PT CONSULT: S/P Ortho Surgery Precautions: WBAT on harpreet R LE with AD. Patient Profile/Admitting Diagnosis: Benny Pena is a 66-year-old female with degenerative joint disease of the right knee and right total knee arthroplasty on postoperative day 0. PMHX: All Active Problems?(Updated 06/19/20 @ 16:13 by DENI Stout) Superficial thrombophlebitis (Acute) Status post total left knee replacement (Acute 12/27/19) Hyperlipidemia (Acute) Mass of right ankle (Acute) Impingement syndrome of right shoulder (Acute) Degenerative joint disease of knee, left (Chronic) Degenerative joint disease of knee, right (Acute) Colitis due to Clostridium difficile (Acute) Antibiotic-associated diarrhea (Acute) Infected hematoma following procedure (Acute) Medical History? Antibiotic-associated diarrhea Colitis due to Clostridium difficile Fibromyalgia Gallstones Gallstones without obstruction of gallbladder GERD (gastroesophageal reflux disease) Hyperlipidemia Hypertension Infected hematoma following procedure Kidney stones Surgical History? EGD - MAC (12/24/16) , Ectopic S/P laparoscopic cholecystectomy (~06/15/19) Status post total left knee replacement (12/27/19) Tonsillectomy Social History/Home Situation: Lives alone in a private home with 3 steps to enter and rails on both sides.? recently passed. Independent with all of aspects ADLs without the use of an assistive ambulatory device nor adaptive equipment.? Equipment Owned/DME: 4-wheeled walker, front-wheeled walker Subjective: Reports pain in the posterior neck at 8/10. L shoulder pain at 3-4/10 but was able to use B arms to push off from arm rests to stand up. Nurse Marietta aware and managing. Objective: General Observation: TEDS in the L leg.? JOSE ARMANDO wraps to left LE.? Cryocuff to left LE. Mental Status: Alert and oriented x4 Pain: 4/10 within the R knee; 8/10 in posterior neck ROM: Right Lower Extremity: Hip flexion WFL. Hip abduction WFL. Knee flexion 20 degrees to 90 degrees.? Knee extension -20 degrees.? Ankle dorsiflexion WFL. Ankle plantarflexion WFL. Left Lower Extremity: Hip flexion WFL. Hip abduction WFL. Knee flexion WFL. Ankle dorsiflexion WFL. Ankle plantarflexion WFL. Strength: Right Lower Extremity: Hip flexors 4/5.? Hip extensors 4/5.? Hip abductors 5/5. Knee flexors 3-/5. Knee extensors 3-/5. Ankle dorsiflexors 5/5. Ankle plantarflexors 5/5. Left Lower Extremity:Hip flexors 4/5.? Hip extensors 4/5.? Hip abductors 5/5. Knee flexors 5/5. Knee extensors 5/5. Ankle dorsiflexors 5/5. Ankle plantarflexors 5/5. Sensation: Intact as to pain and pressure on bilateral lower extremities. Bed Mobility/Transfers: Sit to stand contact-guard assist Stand to sit contact-guard assist Bed to chair contact-guard assist Gait: 80 feet x 2 using front-wheeled walker with step-to gait pattern requiring contact-guard assist.? Decreased anita.? Decreased step height on the left LE.? Gait antalgic. Nurses Teofilo and Marietta assisting for safety. Stairs: Up and down 6 x 4-inc steps and 4 x 6-inch steps while holding onto B rails. At her daughter's house, she will have the assistance of her daughter and son-in-law on either side on the steps. Nurses Teofilo and Marietta assisting for safety. Balance: Static Sitting: Normal Dynamic Sitting: Normal Static Standing: Fair Dynamic Standing: Fair Special Tests: Mobility Limitations Standardized Measure [facility] 6 clicks Basic Mobility Inpatient Short Form: Raw Score: 19? CMS Score: 42% deficit? ? ? Informed Consent/Education:? Patient instructed in purpose of PT consult and plan of care. NEURO RE-ED: Facilitated muscle reactivation/recruitment in B LE S/P R TKA for safe bed mobility, transfer and ambulation task performance. Trained patient with correct performance of exercises below to maximize motor control, joint flexibility, soft tissue extensibility of the L hip musculature to facilitate return to independent functional mobility performance. Access code texted to patient for easy access. Exercises - Supine Quadricep Sets - 1 x daily - 7 x weekly - 1 sets - 10 reps - 5 hold - Supine Heel Slide - 1 x daily - 7 x weekly - 1 sets - 10 reps - 5 hold - Supine Ankle Pumps - 1 x daily - 7 x weekly - 1 sets - 10 reps - 5 hold - Seated Quad Set - 1 x daily - 7 x weekly - 1 sets - 10 reps - 5 hold - Seated Ankle Pumps - 1 x daily - 7 x weekly - 1 sets - 10 reps - 5 hold - Small Range Straight Leg Raise - 1 x daily - 7 x weekly - 1 sets - 10 reps - 5 hold - Seated March - 1 x daily - 7 x weekly - 1 sets - 10 reps - 5 hold Access Code: [email or web address] URL: [email or web address] Date: 07/02/2022 Prepared by: Norma Vazquez Assessment: Benny demonstrates the need for a front-wheeled walker for all mobility ADL performance for maximized independence, impaired gait pattern, impaired balance, impaired range of motion and strength and the left knee result from postoperative status. Benny is a 64-year-old female with primary unilateral osteoarthritis of the right knee and is status post right total knee arthroplasty on postoperative day 0. Patient presents with clinical signs and symptoms consistent with current/admitting diagnoses that have resulted to mobility limitations, gait instability, generalized weakness, and impairment of motor control as demonstrated by the following impairment level findings: 1.? Decreased strength to R knee major muscle groups 2.? Impaired standing balance 3.? Impaired activity tolerance 4.? Limitation of joint range of motion in R knee Impairments are contributing to the following functional limitations: 1.? Inability to safely ambulate without assistive device 2.? Increase completion time for mobility ADL performance 3.? Increased fall risk 4.? Inability to negotiate steps alone safely Patient is assessed as a 08574 moderate complexity based on the following: History: 64-year-old female with impairment level findings, functional limitations, and past medical history as indicated above Examination: Demonstrable impairment in strength, balance, and mobility level with underlying impairments and functional limitations as documented above Presentation:Evolving Decision Makin moderate complexity Goals: N/A.? PT eval and 1 treatment session only for functional mobility training and HEP instruction. Plan of Care/Treatment Plan: N/A.? PT eval and 1 treatment session only for functional mobility training and HEP instruction. DISCHARGE RECOMMENDATIONS: Home when medically cleared by orthopedic surgeon.? Resume skilled outpatient physical therapy services in order to safely return to independent premorbid level. TREATMENT CODE/TIME: 23079 ? 20 minutes, 92540 x 16 minutes beginning at 16:12 PM. Thank you for the opportunity to participate in the care of this patient. Norma Vazquez PT, DPT, CLT [facility] [place], [place]
== END 2022-07-02 17:27 | disposition home or self-care (01) ==
PROVIDERS: PCP Nurse Practitioner; Visit Provider Student in an Organized Health Care Education/Training Program
PROC: (CPT 27447; principal; 2022-07-02 10:45)
DX: M17.11 Unilateral primary osteoarthritis, right knee (principal); I10 Essential (primary) hypertension; E78.5 Hyperlipidemia, unspecified; M79.7 Fibromyalgia; K21.9 Gastro-esophageal reflux disease without esophagitis
CPT/HCPCS: 27447; 76942; 97112; 97162; J0360; J0690; J1100; J2060; J2250; J2405; J2704; J3010

== ENCOUNTER 2022-07-11 14:04 | Inpatient (IN) | payer MEDICARE, SELFPAY ==
[2022-07-11] VITALS (51 sets, daily range): BP systolic 126–204; BP diastolic 69–122; PULSE 62–76; RESP 11–28; TEMP 36.8–37.2; O2SAT 75–98
--- NOTE | 2022-07-11 14:00 | RT.EKG_ITS ---
APPROVED REPORT Exam: Resting ECG Reason for Exam: dyspnea Patient Location: E HR:67 bpm ECG Measurements Heart Rate 67 AXIS ID 164 P -60 QRSd 97 QRS 25 QT 462 T 46 QTc 489 Conclusion Sinus or ectopic atrial rhythm...P axis (-45,135) Probable left ventricular hypertrophy...(RaVL+SV3)xQRSd >300
--- NOTE | 2022-07-11 14:25 | ED.GENADUL_ITS ---
Discharge Plan Discharge Details Chief Complaint: SOB Primary Care Provider: Randa Galevz ED Provider: Anish Vazquez Home Meds and New Rx's Prescriptions: No Action omeprazole 10 mg capsule,delayed release(DR/EC) 40 mg PO DAILY Patient Comments: pt. reports 40 mg carbamazepine [Tegretol XR] 100 mg tablet extended release 12 hr 100 mg PO BID aspirin [Adult Aspirin Regimen] 81 mg tablet,delayed release (DR/EC) 325 mg PO DAILY Patient Comments: pt. reports she takes a 325 mg, about a week ago trazodone 50 mg tablet 50 mg PO DAILY furosemide [Lasix] 40 MG tablet 40 mg PO DAILY atenolol 100 MG tablet 100 mg PO DAILY lisinopril 10 MG tablet 10 mg PO DAILY sertraline [Zoloft] 25 MG tablet 50 mg PO DAILY oxycodone 5 mg tablet 5 mg PO Q4H MDD 6 tabs PRN (Reason: pain) Qty: 20 0RF gabapentin 800 mg Tablet 800 mg PO QID acetaminophen 500 mg tablet 1,000 mg PO TID Qty: 90 3RF dexamethasone 4 mg tablet 4 mg PO DAILY Qty: 2 0RF meloxicam 15 mg tablet 15 mg PO DAILY Qty: 90 3RF Medical Decision Making 66-year-old lady 10 days postop for right knee replacement. Presented to the emergency department with 3 to 4 days of shortness of breath on exertion. Normal nonischemic EKG with some mild left ventricular hypertrophy. Lung examination is within normal limits. Work-up in progress to rule out ACS as well as pulmonary embolism. No fever no chills no cough doubt pneumonia. HPI General Date/Time Provider Initiated Documentation: 07/11/22 14:25 . HPI Narrative: 66-year-old lady presented to the emergency room for evaluation of shortness of breath on exertion, malaise, fatigue, no chest pain. No chest pressure but some jaw discomfort intermittently on exertion. She is status post right knee replacement approximately 10 days ago. Takes an aspirin a day but no anticoagulation. No cough, no fever no chills Related Data Home Medications Medication Instructions Recorded Confirmed Lasix 40 mg tablet (furosemide) 40 mg PO DAILY 12/09/16 07/11/22 Zoloft 25 mg tablet (sertraline) 50 mg PO DAILY 12/09/16 07/11/22 atenolol 100 mg tablet 100 mg PO DAILY 12/09/16 07/11/22 lisinopril 10 mg tablet 10 mg PO DAILY 12/09/16 07/11/22 gabapentin 800 mg tablet 800 mg PO QID 06/19/20 07/11/22 aspirin 81 mg tablet,delayed 325 mg PO DAILY 06/09/22 07/11/22 release (Adult Aspirin Regimen) carbamazepine 100 mg 100 mg PO BID 06/09/22 07/11/22 tablet,extended release,12 hr (Tegretol XR) omeprazole 10 mg capsule,delayed 40 mg PO DAILY 06/09/22 07/11/22 release trazodone 50 mg tablet 50 mg PO DAILY 06/09/22 07/11/22 acetaminophen 500 mg tablet 1,000 mg PO TID #90 tabs 07/02/22 07/11/22 meloxicam 15 mg tablet 15 mg PO DAILY #90 tabs 07/02/22 07/11/22 oxycodone 5 mg tablet 5 mg PO Q4H PRN pain #20 tabs 07/11/22 07/11/22 Previous Rx's Medication Instructions Recorded acetaminophen 500 mg tablet 1,000 mg PO TID #90 tabs 07/02/22 meloxicam 15 mg tablet 15 mg PO DAILY #90 tabs 07/02/22 oxycodone 5 mg tablet 5 mg PO Q4H PRN pain #20 tabs 07/11/22 Allergies Allergy/AdvReac Type Severity Reaction Status Date / Time Iodinated Contrast Media Allergy Intermediate rash / Unverified 07/11/22 14:20 itchy General Stated Complaint: SOB JAKE: 2 Review of Systems Narrative: 10 point review of system is negative except for what is in the HPI. PFSH All Active Problems (Updated 07/02/22 @ 10:47 by DENI Burks) Infected hematoma following procedure (Acute) Antibiotic-associated diarrhea (Acute) Colitis due to Clostridium difficile (Acute) Degenerative joint disease of knee, right (Acute) Impingement syndrome of right shoulder (Acute) Mass of right ankle (Acute) Hyperlipidemia (Acute) Status post total left knee replacement (Acute 12/27/19) Superficial thrombophlebitis (Acute) Medical History (Updated 07/02/22 @ 10:47 by DENI Burks) Fibromyalgia Gallstones Gallstones without obstruction of gallbladder GERD (gastroesophageal reflux disease) History of depression Hx of backache Hypertension Idiopathic pancreatitis Kidney stones Surgical History (Updated 07/02/22 @ 08:32 by Lizzy Lentz) EGD - MAC (12/24/16) Hx of colonoscopy , Ectopic S/P laparoscopic cholecystectomy (~06/15/19) Tonsillectomy Social History Smoking/Tobacco Use Status: Current every day Tobacco Type: e-cigarettes Tobacco: How many years used: 40 Smokeless tobacco user: other Smoking risk assessment performed?: Yes Alcohol Intake: current Alcohol Intake frequency: a few times a month Alcohol type: hard liquor Drug use: Never Substance use type: does not use Details: PT USES ELECTRONIC CIGARETTES, last used before entry to hospital today. Last alcohol was 06/27/22 current occupation: caregiver Current gender identity: female Do you feel safe at home: Yes Do you feel safe in your relationship?: Yes Exam Narrative Exam Narrative: General: A,A Ox3, Calm, no apparent distress, high BMI pleasant and cooperative Head Size/Shape: normocephalic, atraumatic Eyes Pupils: PERRLA Extraocular Mobility: intact and symmetrical Conjunctiva: non-injected, anicteric, no discharge Ears, Nose, Throat Nares: patent bilaterally Oral Cavity: moist Neck: no masses, no crepitus Lymph Nodes: no cervical lymphadenopathy Respiratory Respiratory Effort: no dyspnea Auscultation: clear to auscultation bilaterally, normal breath sounds, no wheezing, no rales/crackles Cardiovascular Heart Auscultation: regular rate and rhythm, normal S1, normal S2, no murmurs, no rubs, no gallops, Pulse Quality: +2 equal bilaterally, location(s) radial Abdomen Inspection and Palpation: soft, non-tender, non-distended, no hepatosplenomegaly Musculoskeletal System Joints, Bones, and Muscles: no deformities, healing wound on the right knee Extremities: warm and well-perfused, no cyanosis, capillary refill <2 seconds Skin Skin Inspection: no rash, no lesions, no bruising Neurological Motor: normal tone, normal strength, moving all extremities equally Psychiatric: good insight, good judgement, normal mood and affect Course Vital Signs Vital signs: Vital Signs Temperature 37.2 C 07/11/22 14:08 Pulse 76 07/11/22 14:08 Respiratory Rate 16 04/28/23 14:08 Blood Pressure 196/112 H 07/11/22 14:08 Pulse Oximetry 92 07/11/22 14:08 Temperature 37.2 C 07/11/22 14:08 Temperature Source Skin 07/11/22 14:08 Pulse 76 07/11/22 14:08 Respiratory Rate 16 07/11/22 14:08 Blood Pressure 196/112 H 07/11/22 14:08 Pulse Oximetry 92 07/11/22 14:08 Oxygen Delivery Method Room Air 07/11/22 14:08 Oxygen Flow Rate 0 07/11/22 14:08 Pain Level 1 07/11/22 14:08
--- NOTE | 2022-07-11 14:30 | DI.CT_ITS ---
Exam(s) CT CHEST PE CTA EXAM: CT CHEST PE CTA CLINICAL HISTORY: sob. TECHNIQUE: Imaging Protocol: Axial CT angiography was performed with multi-slice acquisition and mu lti-planar and/or 3D reconstructions. CONTRAST MATERIAL: Intravenous: Omnipaque 350 contrast volume:100 mL COMPARISON: CT CT ABDOMEN PELVIS W from 06/30/2019 FINDINGS: Tracheobronchial tree: Patent where visualized. Pulmonary parenchyma: No consolidation or dominant measurable mass. No architectural distortion. Pulmonary Arteries: There are filling defects seen in lobar branches to both lungs and segmental and subsegmental pulmonary artery branches consistent with pulmonary emboli. There are filling defects s een in the distal portions of both the right and left pulmonary arteries. Mediastinum and Charline: No dominant adenopathy or fluid collection. The esophagus is unremarkable. Visualized thyroid gland: Unremarkable. Pleura: No effusion or pneumothorax. Heart: The heart is not dilated. There is mild coronary artery calcification. No pericardial effusio n. The RV to LV ratio is less than 1. No evidence of right heart strain. Aorta: Thoracic aorta non-dilated. No evidence of dissection. Mild atherosclerosis. Upper abdomen: A simple cyst is again seen in the left kidney. No follow-up is recommended. Soft tissues: Unremarkable. Bones: Within normal limits for the patient's age. IMPRESSION: 1. Findings of multiple acute bilateral pulmonary emboli. No evidence of right heart strain. 2. No pulmonary infiltrates. RADIATION DOSE DELIVERED: 592.68mGy.cm Total DLP DATA REPOSITORY: All CT scans at this facility are submitted to the National Radiology Data Registry (NRDR) Dose Index Registry (DIR) with the [employer] (ACR). RADIATION OPTIMIZATION: All CT scans at this facility use at least one of these dose optimization te chniques: automated exposure control; mA and/or kV adjustment per patient size (includes targeted exa ms where dose is matched to clinical indication); or iterative reconstruction.
[2022-07-11 14:57] LABS: Absolute Basophil Count 0.05 10^3/uL (0.0-0.2); Absolute Eosinophil Count 0.31 10^3/uL (0.0-0.7); Absolute Lymphocyte Count 0.72 10^3/uL (1.2-3.4); Absolute Monocyte Count 0.56 10^3/uL (0.1-0.8); Absolute Neutrophil Count 8.39 10^3/uL (1.2-6.7); Basophils % 0.5; Eosinophils % 3.1; HCT 34.8 % (36.0-46.0); HGB 11.4 g/dL (11.2-15.7); Lymphocytes % 7.1; MCH 30.6 pg (27.0-33.0); MCHC 32.8 % (32.0-36.0); MCV 94 fL (80-95); MPV 10.4 fL (8.0-11.0); Monocytes % 5.5; Neutrophils % 82.8; Platelet Count 293 10^3/uL (130-400); RBC 3.72 10^6/uL (3.93-5.22); RDW 13.4 % (11.7-14.6); RDW-SD 45.6 fL; WBC 10.13 10^3/uL (4.4-10.8)
[2022-07-11] MEDS: Normal Saline 250 ML 500 ML IV (15:02)
[2022-07-11 15:22] LABS: Anion Gap 6.3 mmol/L (3-11); BUN 16 mg/dL (7-18); CO2 29.7 mmol/L (21.0-32.0); CREATININE 0.9 mg/dL (0.55-1.02); Calcium 9.1 mg/dL (8.5-10.1); Chloride 104 mmol/L (98-107); Estimated GFR 70.95 (mL/min/1.73m2); Glucose 113 mg/dL (74-106); Potassium 3.7 mmol/L (3.5-5.1); Sodium 140 mmol/L (136-145)
[2022-07-11 15:24] LABS: Troponin I 143 ng/L (<or=60)
[2022-07-11 16:01] LABS: NT-proBNP 1292 pg/mL (<300)
[2022-07-11] MEDS: Dexamethasone 10 MG/ML VIAL IVP (16:13)
[2022-07-11] MEDS: diphenhydrAMINE 50 MG/ML VIAL 25 MG IVP (16:13)
[2022-07-11] MEDS: Normal Saline - Diluent 50 ML VIAL IJ (17:20)
[2022-07-11] MEDS: Omnipaque 350 MG/ML 500 ML BTL-Imaging package 100 ML IJ (17:20)
[2022-07-11] MEDS: Normal Saline Flush 10 ML SYR IVP (17:21)
[2022-07-11 18:05] LABS: Troponin I 107 ng/L (<or=60)
--- NOTE | 2022-07-11 18:07 | DI.VRAD_ITS ---
PROCEDURE INFORMATION: Exam: CTA Chest With Contrast Exam date and time: 07/11/2022 5:12 PM Age: 66 years old Clinical indication: Shortness of breath TECHNIQUE: Imaging protocol: Computed tomographic angiography of the chest with contrast. 3D rendering (Not supervised by radiologist): MIP and/or 3D reconstructed images were created by the technologist. Contrast material: OMNIPAQUE 350; Contrast volume: 100 ml; Contrast route: INTRAVENOUS (IV); COMPARISON: CT ABDOMEN PELVIS W 06/30/2019 9:46 AM FINDINGS: Pulmonary arteries: There are moderate-sized filling defects in the pulmonary arteries extending from the distal portions of the bilateral main pulmonary arteries into all lobar branches of both pulmonary arteries. Main pulmonary artery appears clear. Findings are compatible with acute pulmonary emboli. Aorta: Unremarkable. No aortic aneurysm. No aortic dissection. Lungs: Unremarkable. No consolidation. No masses. Pleural spaces: Unremarkable. No pneumothorax. No pleural effusion. Heart: The heart is normal in size. RV/LV = 0.86, which is within normal range. No evidence of right heart strain. Lymph nodes: Unremarkable. No enlarged lymph nodes. Kidneys and ureters: There is a partially visualized 5.5 cm simple cortical cyst at the upper pole of the left kidney. Bones/joints: Moderate degenerative changes noted throughout the thoracic spine. Soft tissues: Unremarkable. IMPRESSION: Study is positive for multiple moderate-sized bilateral acute pulmonary emboli. No evidence of right heart strain. THIS REPORT CONTAINS FINDINGS THAT MAY BE CRITICAL TO PATIENT CARE. The findings were verbally communicated via telephone conference with Bety William NP at 6:06 PM EDT on 07/11/2022. The findings were acknowledged and understood. Dictated and Authenticated by: Vance Pablo MD. Ordering:JASON Oconnell MD
--- NOTE | 2022-07-11 18:51 | W.EDPROG ---
Date of service: 07/11/22 Time of Service: 18:51 Medical Decision Making Evidence of submassive PE on CT. Patient remains hemodynamically stable infectious hypertense, nontachycardic borderline relative hypoxia patient is a longtime smoker oxygen saturation 90 to 91% on room air. Have placed consultation to [facility] PE team to see if patient is candidate for thrombectomy or catheter administered tPA 19: [address] Gonzales of cardiology/PE team at [facility] who after reviewing patient's case imaging and labs with suggest anticoagulation and admission at our facility, no indication at this time for intervention such as thrombectomy or catheter administer tPA. Patient to be transitioned to [facility]. Recommending echocardiogram either during this admission or shortly after discharge. Sign Out Sign Out Data: Sign Out Comment: 66-year-old lady status post knee surgery approximately 10 days ago. Presented with exertional shortness of breath. Patient being signed out to Dr. Sharon gordon. CT PE study pending. Labs are also pending. Nonischemic EKG Last updated by Anish Vazquez MD at 07/11/22 15:05 Discharge Plan Disposition Patient Disposition: Admit to [facility] Discharge Details Chief Complaint: SOB Clinical Impression: Pulmonary emboli Primary Care Provider: Randa Galvez ED Provider: Yossi Reyes Home Meds and New Rx's Prescriptions: No Action omeprazole 10 mg capsule,delayed release(DR/EC) 40 mg PO DAILY Patient Comments: pt. reports 40 mg carbamazepine [Tegretol XR] 100 mg tablet extended release 12 hr 100 mg PO BID aspirin [Adult Aspirin Regimen] 81 mg tablet,delayed release (DR/EC) 325 mg PO DAILY Patient Comments: pt. reports she takes a 325 mg, about a week ago trazodone 50 mg tablet 50 mg PO DAILY furosemide [Lasix] 40 MG tablet 40 mg PO DAILY atenolol 100 MG tablet 100 mg PO DAILY lisinopril 10 MG tablet 10 mg PO DAILY sertraline [Zoloft] 25 MG tablet 50 mg PO DAILY oxycodone 5 mg tablet 5 mg PO Q4H MDD 6 tabs PRN (Reason: pain) Qty: 20 0RF gabapentin 800 mg Tablet 800 mg PO QID acetaminophen 500 mg tablet 1,000 mg PO TID Qty: 90 3RF meloxicam 15 mg tablet 15 mg PO DAILY Qty: 90 3RF
[2022-07-11] MEDS: Enoxaparin 120 MG/0.8 ML SYR SC (19:55)
[2022-07-11] MEDS: Gabapentin 800 MG TAB PO (20:24)
[2022-07-11] MEDS: Acetaminophen 500 MG TAB 1000 MG PO (20:25)
[2022-07-11 20:34] LABS: Source Nasal/Nares
--- NOTE | 2022-07-11 21:15 | W.PM.HP.N ---
Date of service: 07/11/22 Time of Service: 21:18 Assessment and Plan Assessment and plan (1) Bilateral pulmonary embolism: Status: Acute Assessment and plan: Present on admission. In setting of recent TKR - provoked. Treat with lovenox prior to switching to apixaban for discharge. Monitor on tele. Does have hypoxia. Obtain venous dopplers of BLEs and an echocardiogram. Encourage IS. Obtain excercise oxiemtry. (2) Elevated troponin: Status: Acute Assessment and plan: Suspect there is some degree of RV dysfunction; however, hypoxia could also have lead to an elevated troponin. The patient should be monitored on telemetry. No echocardiogram capabilities at [facility] until Thursday07/14/22. (3) Hypertension: Assessment and plan: Continue home atenolol, lisinopril. Control pain. I am holding her furosemide for today but it might be able to be resumed tomorrow. (4) Tobacco abuse: Status: Acute Assessment and plan: Encourage cessation. Provide nicotine replacement (5) Discharge planning issues: Status: Acute Assessment and plan: Full code C/s PT. History of Present Illness History of Present Illness Chief Complaint: dyspnea on miminaml exertion and dizziness; low oxygen saturation at home Narrative: Ms Pena is a 66 year old female with PMHx of non-oxygen depedent COPD, hypertension, Hyperlipidemia, GERD, tobacco abuse, and who is s/p R TKR on 07/02/[address] Dee who presented to [facility] ED w/ ROSADO x 3-4 days. She stated that even walking across her living room to her kitchen got her so short of breath today she had to sit down and felt very dizzy and weak. When she put her pulse oximeter on, her O2 sat was 84% on RA. No fever or cough. The patient endorsed chest discomfort to ER but not to me. The patient did notice that her RLE was more swollen today and she felt it may have had to do with the TEDs stockings. The patient was taking aspirin 325 mg PO daily at home. Her ER workup revealed evidence of B PEs (submassive) per CTA. While hemodynamically stable and with CTA not showing R heart strain, she does have borderline oxygen saturations (90-91%), and a slightly elevated troponin I (143->107 ng/L) as well as a NT-pro-BNP of 1292. Her case was reviewed with [facility] PE team, who, based on patient's hemodynamic stability, did not recommend thrombolysis or thrombectomy. Anticoagulation with lovenox was recommended prior to switching to apixaban. Hospitalist admission for cardiac monitoring and an echocardiogram was requested. The patient is apprehensive about the idea of going on eliquis because her had a massive GI bleed from it. We discussed how eliquis actually had a lower incidence of GI bleeding than other anticoagulants. She has not seen blood in her stool or urine. She does have a h/o thrombophlebitis (she thinks in her L leg) after an injury. Review of Systems All systems reviewed & are unremarkable except as noted in HPI and below PFSH All Active Problems (Updated 07/11/22 @ 23:00 by Alice Wiley MD) COPD (chronic obstructive pulmonary disease) (Chronic) Tobacco abuse (Acute) Discharge planning issues (Acute) Elevated troponin (Acute) Bilateral pulmonary embolism (Acute) Pulmonary emboli (Chronic) Infected hematoma following procedure (Acute) Antibiotic-associated diarrhea (Acute) Colitis due to Clostridium difficile (Acute) Degenerative joint disease of knee, right (Acute) Impingement syndrome of right shoulder (Acute) Mass of right ankle (Acute) Hyperlipidemia (Acute) Status post total left knee replacement (Acute 12/27/19) Superficial thrombophlebitis (Acute) Medical History (Updated 07/11/22 @ 23:00 by Alice Wiley MD) Fibromyalgia Gallstones Gallstones without obstruction of gallbladder GERD (gastroesophageal reflux disease) History of depression Hx of backache Hypertension Idiopathic pancreatitis Kidney stones Surgical History (Updated 07/11/22 @ 23:01 by Alice Wiley MD) EGD - MAC (12/24/16) History of total bilateral knee replacement Hx of colonoscopy , Ectopic S/P laparoscopic cholecystectomy (~06/15/19) Tonsillectomy Family History (Updated 07/11/22 @ 22:52 by Alice Wiley MD) Mother Diabetes Brother Heart disease Hypertension Other Adopted Social History (Updated 07/11/22 @ 23:01 by Alice Wiley MD) Smoking/Tobacco Use Status: Current every day Tobacco Type: e-cigarettes Tobacco: How many years used: 40 Smokeless tobacco user: other Smoking risk assessment performed?: Yes Alcohol Intake: current Alcohol Intake frequency: holidays/special occasions only Alcohol type: hard liquor Drug use: Never Substance use type: does not use Details: PT USES ELECTRONIC CIGARETTES, last used before entry to hospital today. Last alcohol was 06/27/22 current occupation: caregiver Current gender identity: female Do you feel safe at home: Yes Do you feel safe in your relationship?: Yes Meds Allergies and Home Medications Allergies Allergy/AdvReac Type Severity Reaction Status Date / Time Iodinated Contrast Media Allergy Intermediate rash / Unverified 07/11/22 14:20 itchy Home Medications Medication Instructions Recorded Confirmed Type Lasix 40 mg tablet (furosemide) 40 mg PO DAILY 12/09/16 07/11/22 History Zoloft 25 mg tablet (sertraline) 50 mg PO DAILY 12/09/16 07/11/22 History atenolol 100 mg tablet 100 mg PO DAILY 12/09/16 07/11/22 History lisinopril 10 mg tablet 10 mg PO DAILY 12/09/16 07/11/22 History gabapentin 800 mg tablet 800 mg PO QID 06/19/20 07/11/22 History aspirin 81 mg tablet,delayed 325 mg PO DAILY 06/09/22 07/11/22 History release (Adult Aspirin Regimen) carbamazepine 100 mg 100 mg PO BID 06/09/22 07/11/22 History tablet,extended release,12 hr (Tegretol XR) omeprazole 10 mg capsule,delayed 40 mg PO DAILY 06/09/22 07/11/22 History release trazodone 50 mg tablet 50 mg PO DAILY 06/09/22 07/11/22 History acetaminophen 500 mg tablet 1,000 mg PO TID #90 tabs 07/02/22 07/11/22 Rx meloxicam 15 mg tablet 15 mg PO DAILY #90 tabs 07/02/22 07/11/22 Rx oxycodone 5 mg tablet 5 mg PO Q4H PRN pain #20 tabs 07/11/22 07/11/22 Rx Exam Narrative Exam Narrative: General: Pleasant obese female who is A&Ox3, NAD, laying comfortably in bed, on 1L of O2 by NC Neurological: A&Ox3 no focal deficits Psychiatric: Appropriate speech pattern/content Skin: Visible skin intact HEENT: Atraumatic, normocephalic, EOMI, dry MM, clear oropharynx, no submandibular or cervical lymphadenopathy, no goiter or JVD Cardiovascular: RRR, nom/r/g Lungs: CTAB Gastrointestinal: soft, nontender, nondistended Genitourinary: deferred Extremities: R TKR incision is healing nicely, there is mild edema RLE in comparison to the LLE, no c/c, 1+ pedal pulses B Results Imaging Additional studies: CTA chest: Study is positive for multiple moderate-sized bilateral acute pulmonary emboli. No evidence of right heart strain. EKG: HR 67, NSR, no S1 or T3 but does have a Q wave in lead 3. No acute ischemia. Labs 07/11/22 14:49 07/11/22 14:49 Labs: Laboratory Results - last 24 hr 07/11/22 07/11/22 07/11/22 14:49 14:49 14:49 WBC 10.13 RBC 3.72 L Hgb 11.4 Hct 34.8 L MCV 94 MCH 30.6 MCHC 32.8 RDW 13.4 Plt Count 293 MPV 10.4 Immature Gran % 1.0 Neutrophils % 82.8 Lymphocytes % 7.1 Monocytes % 5.5 Eosinophils % 3.1 Basophils % 0.5 Nucleated RBC % 0.0 Absolute Neutrophils 8.39 H Absolute Lymphocytes 0.72 L Absolute Monocytes 0.56 Absolute Eosinophils 0.31 Absolute Basophils 0.05 Sodium 140 Potassium 3.7 Chloride 104 Carbon Dioxide 29.7 Anion Gap 6.3 BUN 16 Creatinine 0.9 Est GFR (CKD-EPI 2020) 70.95 Glucose 113 H Calcium 9.1 Troponin I 143 H* NT-Pro-B Natriuret Pep 1292 H COVID-19 Source 07/11/22 07/11/22 07/11/22 17:41 18:45 20:30 WBC RBC Hgb Hct MCV MCH MCHC RDW Plt Count MPV Immature Gran % Neutrophils % Lymphocytes % Monocytes % Eosinophils % Basophils % Nucleated RBC % Absolute Neutrophils Absolute Lymphocytes Absolute Monocytes Absolute Eosinophils Absolute Basophils Sodium Potassium Chloride Carbon Dioxide Anion Gap BUN Creatinine Est GFR (CKD-EPI 2020) Glucose Calcium Troponin I 107 H* Cancelled NT-Pro-B Natriuret Pep COVID-19 Source Nasal/Nares Last Vital Signs Temp 36.8 C 07/11/22 20:45 Pulse 66 07/11/22 20:45 Resp 17 07/11/22 20:45 BP 151/83 H 07/11/22 21:07 Pulse Ox 91 L 07/11/22 20:45 Time Spent Time spent with Patient: 55-74 minutes Time was spent: preparing to see the patient(eg.review tests), obtaining and/or reviewing separately otained hiistory, ordering medications,tests, procedures, referring, communicating with other health child care aide, indepentently interpreting results, counseling the patient and care coordination
[2022-07-11 21:28] LABS: COVID-19 PCR Negative (Negative)
[2022-07-12] VITALS (10 sets, daily range): BP systolic 118–171; BP diastolic 76–103; PULSE 57–94; RESP 14–24; TEMP 36.2–36.5; O2SAT 85–98
[2022-07-12 06:28] LABS: Abs Immature Grans 0.07 10^3/uL (0.0-0.06); Absolute Basophil Count 0.07 10^3/uL (0.0-0.2); Absolute Eosinophil Count 0.31 10^3/uL (0.0-0.7); Absolute Lymphocyte Count 1.53 10^3/uL (1.2-3.4); Absolute Monocyte Count 0.61 10^3/uL (0.1-0.8); Absolute Neutrophil Count 7.63 10^3/uL (1.2-6.7); Basophils % 0.7; HCT 32.6 % (36.0-46.0); HGB 10.7 g/dL (11.2-15.7); Immature Grans % 0.7; MCH 30.7 pg (27.0-33.0); MCHC 32.8 % (32.0-36.0); MCV 93 fL (80-95); MPV 10.9 fL (8.0-11.0); Neutrophils % 74.6; Platelet Count 293 10^3/uL (130-400); RBC 3.49 10^6/uL (3.93-5.22); RDW 13.6 % (11.7-14.6); RDW-SD 45.9 fL; WBC 10.22 10^3/uL (4.4-10.8)
[2022-07-12 06:49] LABS: Anion Gap 8.3 mmol/L (3-11); BUN 23 mg/dL (7-18); CO2 26.7 mmol/L (21.0-32.0); CREATININE 0.8 mg/dL (0.55-1.02); Calcium 9.2 mg/dL (8.5-10.1); Chloride 108 mmol/L (98-107); Estimated GFR 81.72 (mL/min/1.73m2); Glucose 110 mg/dL (74-106); Potassium 3.8 mmol/L (3.5-5.1); Sodium 143 mmol/L (136-145)
[2022-07-12] MEDS: Enoxaparin 120 MG/0.8 ML SYR SC ×2 (08:09→19:50)
[2022-07-12] MEDS: Normal Saline Flush 10 ML SYR IVP (08:10)
[2022-07-12] MEDS: Gabapentin 800 MG TAB PO ×4 (08:10→19:49)
[2022-07-12] MEDS: Acetaminophen 500 MG TAB 1000 MG PO ×3 (08:10→19:49)
[2022-07-12] MEDS: traZODone 50 MG TAB PO ×2 (08:11→19:49)
[2022-07-12] MEDS: Lisinopril 10 MG TAB PO (08:11)
[2022-07-12] MEDS: Sertraline 25 MG TAB 50 MG PO (08:11)
[2022-07-12] MEDS: Aspirin E.C. 81 MG TABEC PO (08:11)
[2022-07-12] MEDS: Atenolol 50 MG TAB 100 MG PO (08:12)
[2022-07-12] MEDS: Omeprazole 20 MG CAPCR 40 MG PO (08:12)
--- NOTE | 2022-07-12 10:47 | PT.INIE ---
Date of service: 07/12/22 Time of Service: 10:15 PT Notes Visit Reasons: Acute PE w/ Suspected RV Strain Inpatient Physical Therapy Evaluation Date: July 12, 2022 Referring Doctor: Alice Wiley PT Orders: PT CONSULT: Limited Ability Precautions: Standard Patient Profile/Admitting Diagnosis: Benny is a 66 year old female diagnosis with pulmonary embolus status post total knee arthroplasty approximately 11 days ago. Noted significant shortness of breath resulting in emergency department visit with admission. (Updated 06/19/20 @ 16:13 by DENI Stout) Superficial thrombophlebitis (Acute) Status post total left knee replacement (Acute 12/27/19) Hyperlipidemia (Acute) Mass of right ankle (Acute) Impingement syndrome of right shoulder (Acute) Degenerative joint disease of knee, left (Chronic) Degenerative joint disease of knee, right (Acute) Colitis due to Clostridium difficile (Acute) Antibiotic-associated diarrhea (Acute) Infected hematoma following procedure (Acute) Medical History? Antibiotic-associated diarrhea Colitis due to Clostridium difficile Fibromyalgia Gallstones Gallstones without obstruction of gallbladder GERD (gastroesophageal reflux disease) Hyperlipidemia Hypertension Infected hematoma following procedure Kidney stones Surgical History? EGD - MAC (12/24/16) , Ectopic S/P laparoscopic cholecystectomy (~06/15/19) Status post total left knee replacement (12/27/19) Tonsillectomy Social History/Home Situation: Lives alone in a private home with 3 steps to enter and rails on both sides.? recently passed.? Independent with all of aspects ADLs without the use of an assistive ambulatory device nor adaptive equipment.? Equipment Owned/DME: 4-wheeled walker, front-wheeled walker Subjective: Benny states she is feeling better this morning. Less shortness of breath. Work with respiratory earlier this morning and it was recommended 2 L of oxygen with activity. Juliann is concerned with her range of motion of her knee for has not been unable to complete her home exercise program status post total knee arthroplasty secondary to these acute health issues. Objective: General Observation: Telemetry, O2 via nasal cannula Mental Status: Alert and oriented x3 Pain: At rest 0/10, 2/10 with activity Vital Signs: Heart rate at rest 58 beats per minutes O2 saturation at rest on 1.5 L via nasal cannula 95% ROM: Right Upper Extremity: Demonstrates within normal limits right upper extremity range of motion Left Upper Extremity: Demonstrates within normal limits left upper extremity range of motion Right Lower Extremity: Hip flexion WFL. Hip abduction WFL. Knee flexion 95 degrees.? Knee extension -10 degrees.? Ankle dorsiflexion WFL. Ankle plantarflexion WFL. Left Lower Extremity: Hip flexion WFL. Hip abduction WFL. Knee flexion WFL. Ankle dorsiflexion WFL. Ankle plantarflexion WFL. Strength: Right Upper Extremity: Demonstrates good functional strength right upper extremity Left Upper Extremity: Demonstrates good functional strength left upper extremity Right Lower Extremity: Independent straight leg raise without extension lag, good quad set. Demonstrates 4/5 hip flexion, 5/5 dorsiflexion plantarflexion Left Lower Extremity: Demonstrates grossly 5/5 left lower extremity Sensation: Intact as to pain and pressure on bilateral lower extremities. Bed Mobility/Transfers: Sit to stand supervision Stand to sit supervision Bed to chair contact-guard assist with front wheeled walker Gait: 150 feet using front-wheeled walker with step-to gait pattern requiring contact-guard assist.? Decreased anita.? Decreased step height on the left LE.? Gait antalgic. ? 2 L oxygen via nasal cannula with frequent rests and cueing to promote proper breathing and maintain saturation in 90s. Balance: Static Sitting: Normal Dynamic Sitting: Normal Static Standing: Good Dynamic Standing: Fair Special Tests: Mobility Limitations Standardized Measure [facility] AM-PAC 6 clicks Basic Mobility Inpatient Short Form: Raw Score: 22 CMS Score:21% NEURO RE-ED: Facilitated muscle reactivation/recruitment in B LE S/P R TKA for safe bed mobility,? transfer and ambulation task performance.? Trained patient with correct performance of exercises below to maximize motor control,? joint flexibility,? soft tissue extensibility of the L hip musculature to facilitate return to independent functional mobility performance.? Reviewed below exercises Exercises - Supine Quadricep Sets? - 1 x daily - 7 x weekly - 1 sets - 10 reps - 5 hold - Supine Heel Slide? - 1 x daily - 7 x weekly - 1 sets - 10 reps - 5 hold - Supine Ankle Pumps? - 1 x daily - 7 x weekly - 1 sets - 10 reps - 5 hold - Seated Quad Set? - 1 x daily - 7 x weekly - 1 sets - 10 reps - 5 hold - Seated Ankle Pumps? - 1 x daily - 7 x weekly - 1 sets - 10 reps - 5 hold - Small Range Straight Leg Raise? - 1 x daily - 7 x weekly - 1 sets - 10 reps - 5 hold - Seated March? - 1 x daily - 7 x weekly - 1 sets - 10 reps - 5 hold Informed Consent/Education: Patient instructed in purpose of PT consult and plan of care. Assessment: Patient is a 66 year old female referred to physical therapy services with the diagnosis of acute PE with suspected RV strain. Patient presents with clinical signs and symptoms consistent with diagnosis, as demonstrated by the following impairment level findings: Impaired joint mobility motor function muscle performance status post total knee arthroplasty along with shortness of breath with diminished gait and balance. Impairments are contributing to the following functional limitations: Decreased activity tolerance, altered gait, limited right knee range of motion status post total knee arthroplasty, limited strength Patient is assessed as a Low 29984 complexity based on the following: History: As above Examination: As above Presentation: Stable Decision Making: Low complexity Goals: Goals X1 week 1. Supine-Sit independent 2. Sit-Supine independent 3. Sit-Stand independent 4. Stand-Sit independent 5. Bed-Chair independent 6. Chair-Bed independent 7. Gait 300 feet with front wheeled walker Plan of Care/Treatment Plan: 1-2x/day, 7 days/week x 1 week. Plan of care has been reviewed with the [employer] providing the service under Physical Therapy direction. Initiate Physical Therapy intervention for strengthening, bed mobility, transfers, gait, stairs, balance training, use of assistive device. DISCHARGE RECOMMENDATIONS: Patient to return to her daughter's home once medically cleared resuming home health services status post total knee arthroplasty. T[place]ATMENT [place]: [place] [address], NR([id number]) 30 minutes, 10:15 am ANABEL Weiner [facility] Disclaimer: This note was created using [employer] voice recognition software. It was reviewed for major content. However, there may be multiple small discrepancies and errors due to the voice recognition aspects of the software.
--- NOTE | 2022-07-12 12:13 | PDOC.CMIN ---
- If Service Date Differs Date of service: 07/12/22 Time of Service: 12:13 Care Management Initial Assess REASON FOR HOSPITALIZATION:: Acute PE w/suspected RV strain PAST MEDICAL HISTORY/PAST SURGICAL HISTORY:: All Active Problems. COPD (chronic obstructive pulmonary disease) (Chronic). Tobacco abuse (Acute). Discharge planning issues (Acute). Elevated troponin (Acute). Bilateral pulmonary embolism (Acute). Pulmonary emboli (Chronic). Infected hematoma following procedure (Acute). Antibiotic-associated diarrhea (Acute). Colitis due to Clostridium difficile (Acute). Degenerative joint disease of knee, right (Acute). Impingement syndrome of right shoulder (Acute). Mass of right ankle (Acute). Hyperlipidemia (Acute). Status post total left knee replacement (Acute 12/27/19). Superficial thrombophlebitis (Acute). Medical History. Fibromyalgia. Gallstones. Gallstones without obstruction of gallbladder. GERD (gastroesophageal reflux disease). History of depression. Hx of backache. Hypertension. Idiopathic pancreatitis. Kidney stones. Surgical History. EGD - MAC (12/24/16). History of total bilateral knee replacement. Hx of colonoscopy. , Ectopic. S/P laparoscopic cholecystectomy (~06/15/19). Tonsillectomy PREVIOUS FUNCTIONAL STATUS/SOCIAL/FAMILY SUPPORTS:: Benny lives in [place], alone. Her Her daughter, Rona, lives in [place] as well. She is currently staying with Rona post surgically. 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 She is independent at baseline. CURRENT FUNCTIONAL STATUS:: Benny was lying in bed when CM met with her. She stated that she is feeling good today. She reported that she has walked with RT, and is still requiring supplemental O2. Per report, she will transition to eliquis upon discharge. CM will inquire about insurance coverage prior to discharge. Benny reported that she has current HH services through the [facility] [place]. CM will resume services upon discharge. CM will continue to follow. ADVANCE DIRECTIVES:: Not on file. CM will offer forms. Has patient been provided with info about the portal/API?: Yes Did the patient sign up for the portal?: No CODE STATUS:: Full Code INSURANCE COVERAGE / FINANCIAL ISSUES:: [facility] MCR replacement CURRENT HOME/COMMUNITY SERVICES/EQUIPMENT:: HH PT, 4WW, FWW PRIMARY CARE PHYSICIAN:: Randa Galvez POTENTIAL DISCHARGE NEEDS:: Resumption of HH services, follow up appointments. PATIENT/FAMILY EDUCATION NEEDS:: Review discharge instructions and limitations, discussion of self care needs including ask me three. ANTICIPATED BARRIERS TO DISCHARGE:: Benny does not require supplemental O2 at home, and is currently on 1LO2. Will plan to wean off O2 prior to discharge. TRANSPORTATION:: Via private vehicle by family. PLAN:: Anticipate Benny will return to her daughter, Rona's house when medically cleared. Rona will drive her home via private vehicle. She will follow up with her PCP and discharge plan of care. CM will continue to follow.
[2022-07-13] VITALS (12 sets, daily range): BP systolic 99–145; BP diastolic 61–86; PULSE 57–79; RESP 12–32; TEMP 36–36.6; O2SAT 92–100
[2022-07-13] MEDS: Acetaminophen 500 MG TAB 1000 MG PO (08:39)
[2022-07-13] MEDS: Omeprazole 20 MG CAPCR 40 MG PO (08:40)
[2022-07-13] MEDS: Gabapentin 800 MG TAB PO (08:41)
[2022-07-13] MEDS: Aspirin E.C. 81 MG TABEC PO (08:42)
[2022-07-13] MEDS: Lisinopril 10 MG TAB PO (08:42)
[2022-07-13] MEDS: Atenolol 50 MG TAB 100 MG PO (08:42)
[2022-07-13] MEDS: Sertraline 25 MG TAB 50 MG PO (08:43)
[2022-07-13] MEDS: Enoxaparin 120 MG/0.8 ML SYR SC (08:47)
--- NOTE | 2022-07-13 09:52 | NUR.NOTE ---
Nursing Note: Pt walking w/ PT on room air. SpO2 at 90% with intermittent dips to 89%. Upon arrival back to room, pt on toilet for BM w/ SpO2 down to 88% and persistent. O2 reapplied at 1 L, SpO2 now 98%.
--- NOTE | 2022-07-13 10:45 | PT.INTREAT ---
PT Notes Visit Reasons: Acute PE w/ Suspected RV Strain SUBJECTIVE: Pt in recliner when approached for therapy this morning, pt with cryocuff, pt agrees to participating with therapy OBJECTIVE: ? PAIN: Pt reports 5/10 for pain on her right knee ? BED MOBILITY/TRANSFERS? Sit-stand: SBA ? Stand-sit: SBA? Bed-Chair: Stand-pivot transfer with FWW and SBA ? Chair-bed: Stand-pivot transfer with FWW and SBA Supine-sit: supervision ? Sit-supine: supervision Rolling side to side: supervision Moving upwards in bed: supervision ? GAIT? Assistive Device: FWW? Weight bearing: Full Assist: SBA ? Distance:? 50x6 ? Deviation: Decreased anita.? Decreased step height on the left LE.? Gait antalgic resulting in increased left lateral lean on FWW. Neuro Re-education 30787: to improve balance, coordination, kinesthetic and proprioceptive sensations. Treatment: ? Exercises - Supine Quadricep Sets? - 1 x daily - 7 x weekly - 1 sets - 10 reps - 5 hold - Supine Heel Slide? - 1 x daily - 7 x weekly - 1 sets - 10 reps - 5 hold - Supine Ankle Pumps? - 1 x daily - 7 x weekly - 1 sets - 10 reps - 5 hold - Seated Quad Set? - 1 x daily - 7 x weekly - 1 sets - 10 reps - 5 hold - Seated Ankle Pumps? - 1 x daily - 7 x weekly - 1 sets - 10 reps - 5 hold - Small Range Straight Leg Raise? - 1 x daily - 7 x weekly - 1 sets - 10 reps - 5 hold - Seated March? - 1 x daily - 7 x weekly - 1 sets - 10 reps - 5 hold ? ASSESSMENT:? Pt SAO2 monitored during the course of the session with pt SAO2 staying at 90% without 02 support, pt cue for energy conservation strategy and DBE while taking standing rest breaks in between distances. PLAN: Continue with global strengthening and continue with gait training, as tolerated for progression toward baseline level of function. TREATMENT CODE/TIME: 25 minutes; 98992, [id number] (9:15 - 9:40am)
--- NOTE | 2022-07-13 11:00 | W.PM.DS.N ---
Date of service: 07/13/22 Time of Service: 11:00 DS: Diagnosis Discharge Diagnosis (1) Bilateral pulmonary embolism: Status: Acute (2) Elevated troponin: Status: Acute (3) Hypertension: (4) Tobacco abuse: Status: Acute Discharge Plan Disposition Patient Disposition: Home W/Hospice Services Condition: Improving Discharge Details Reason For Visit: Acute PE w/ Suspected RV Strain Admit Date/Time: 07/11/22 19:36 Admit Provider: Alice Wiley Attending Provider: Alice Wiley Primary Care Provider: Randa Galvez Hospital Course Hospital Course: Ms Pena is a 66 year old female? with history of? non-oxygen dependent COPD, hypertension, hyperlipidemia, GERD, tobacco abuse, and who had a knee replacement on 07/02/[address] Dee who presented to [facility] ED w/ ROSADO x 3-4 days.?Her work up in the ED showed she was hypoxic in the 80's and imaging positive for bilateral pulmonary embolism. Her troponin elevated at 143, trending downward to 107. She was admitted to med/surg for further management and continued to have oxygen requirements. She was started on full dose enoxaparin and was transitioned to eliquis at discharge. she was weaned off oxygen and remained medically stable. Her meloxicam was discontinued as she is starting on anticoagulation. she did note increased pain in her legs since it was discontinued, otherwise no c/o. she is stable for discharge to home and will need outpatient DVT study and echocardiogram. Orders will be placed. she will also need follow up with pcp and resumption of home health services for routine post operative knee replacement. She was also prescribed nicotrol inhaler as she would like to stop vaping. discharge discussed with DR Irina Lujan Meds and New Rx's Prescriptions: New aspirin 81 mg Tablet,Delayed Release (Dr/Ec) 81 mg PO DAILY Qty: 30 0RF Nicotrol 10 mg Cartridge 10 mg inhalation Q2H PRN PRNQty: 168 0RF Eliquis DVT-PE Treat 30D Start 5 mg (74 tabs) tablets,dose pack See Rx Instructions .ROUTE .COMPLEX Qty: 74 0RF Rx Instructions: orally per package directions Continued omeprazole 10 mg capsule,delayed release(DR/EC) 40 mg PO DAILY Patient Comments: pt. reports 40 mg carbamazepine [Tegretol XR] 100 mg tablet extended release 12 hr 100 mg PO BID trazodone 50 mg tablet 50 mg PO DAILY furosemide [Lasix] 40 MG tablet 40 mg PO DAILY atenolol 100 MG tablet 100 mg PO DAILY lisinopril 10 MG tablet 10 mg PO DAILY sertraline [Zoloft] 25 MG tablet 50 mg PO DAILY oxycodone 5 mg tablet 5 mg PO Q4H MDD 6 tabs PRN (Reason: pain) Qty: 20 0RF gabapentin 800 mg Tablet 800 mg PO QID acetaminophen 500 mg tablet 1,000 mg PO TID Qty: 90 3RF Discontinued aspirin [Adult Aspirin Regimen] 81 mg tablet,delayed release (DR/EC) 325 mg PO DAILY Patient Comments: pt. reports she takes a 325 mg, about a week ago meloxicam 15 mg tablet 15 mg PO DAILY Qty: 90 3RF Discharge Instructions Instructions: Pulmonary Embolism (DC) Additional Instructions: We are unable to schedule your outpatient tests today so you will need to call in the morning. continue your breathing exercises as directed, using your incentive spirometer every 2-3 hours while awake. continue your routine post operative care for your right knee replacement Stand Alone Forms: Nursing Discharge Form Referrals: [facility] Diagnostic Imaging [Other] (Please call first thing Thursday morning to make appointment for imaging.) Randa Galvez [Primary Care Provider] - (Please call Thursday to make a follow up appointment for 1-2 weeks.) Activity:: Activity as Tolerated Equipment/Supplies:: No Equipment Needed Diet:: As Tolerated Discharge Orders Discharge Orders: Discharge Order (Routine); Ordered 07/13/22 Ordered By: Libra Thornton Discharge Data Discharge Date/Time-TO BE ENTERED AT DEPARTURE: 07/13/22 12:07 DS: Summary Time Spent with Patient providing and/or coordinating discharge services: Greater than 30 minutes Status at Discharge Functional status at discharge: uses cane/walker Overall status at discharge: patient is progressing back to baseline Mental Status: mental status grossly normal Speech and Movement: speech and movement normal Mood: congruent mood Affect: normal affect Exam Const General: cooperative, comfortable and no acute distress Nutritional Appearance: obese Orientation: alert, awake and oriented x3 HENMT Head: normal to inspection, normocephalic and atraumatic Mouth: oral mucosae normal Resp Effort & Inspection: normal respiratory effort and able to speak in complete sentences Cardio Rate: regular rate Rhythm: regular rhythm GI Inspection: normal to inspection Skin General skin exam: other (healing right knee surgical incision, no surrounding erythema) Rashes: no rashes Neuro General: patient alert, patient awake and patient oriented x3 Extrem General: edema (right lower, since surgery and improving) Psych Mental Status: mental status grossly normal Speech and Movement: speech and movement normal Mood: congruent mood Affect: normal affect DS: Data Vitals/I&O Vitals and I&O: Vital Signs Temperature 36.6 C 07/13/22 07:56 Temperature Source Tympanic 07/13/22 07:56 Pulse 63 07/13/22 08:00 Pulse Rhythm Regular 07/13/22 08:00 Pulse 74 07/11/22 20:10 Respiratory Rate 24 07/13/22 07:56 Respiratory Effort Normal 07/13/22 08:00 Respiratory Depth Normal 07/13/22 08:00 Respiratory Pattern Normal 07/13/22 08:00 Blood Pressure 145/83 H 07/13/22 07:56 Blood Pressure Mean 116 07/11/22 20:01 Pulse Oximetry 96 07/13/22 10:45 Oxygen Delivery Method Room Air 07/13/22 10:45 Oxygen Flow Rate 0 07/13/22 10:45 Pain Level 0 07/13/22 07:56 Comment RN Notified 07/11/22 21:07 Intake & Output 07/12/22 07/12/22 07/13/22 11:59 23:59 11:59 Intake Total 290 / 900 610 / 900 360 / 360 Output Total 600 / 600 800 / 800 Balance 290 / 300 10 / 300 -440 / -440 Weight 116 kg 117 kg Intake: IV 250 / 250 Oral 290 / 650 360 / 650 360 / 360 Output: Urine 600 / 600 800 / 800 Other: Urine Color Yellow Straw Urine Appearance Clear Urine Odor Normal Voiding Methods Toilet Toilet PFSH All Active Problems (Updated 07/11/22 @ 23:00 by Alice Wiley MD) COPD (chronic obstructive pulmonary disease) (Chronic) Tobacco abuse (Acute) Discharge planning issues (Acute) Elevated troponin (Acute) Bilateral pulmonary embolism (Acute) Pulmonary emboli (Chronic) Infected hematoma following procedure (Acute) Antibiotic-associated diarrhea (Acute) Colitis due to Clostridium difficile (Acute) Degenerative joint disease of knee, right (Acute) Impingement syndrome of right shoulder (Acute) Mass of right ankle (Acute) Hyperlipidemia (Acute) Status post total left knee replacement (Acute 12/27/19) Superficial thrombophlebitis (Acute) Medical History (Updated 07/11/22 @ 23:00 by Alice Wiley MD) Fibromyalgia Gallstones Gallstones without obstruction of gallbladder GERD (gastroesophageal reflux disease) History of depression Hx of backache Hypertension Idiopathic pancreatitis Kidney stones Surgical History (Updated 07/11/22 @ 23:01 by Alice Wiley MD) EGD - MAC (12/24/16) History of total bilateral knee replacement Hx of colonoscopy , Ectopic S/P laparoscopic cholecystectomy (~06/15/19) Tonsillectomy Family History (Updated 07/11/22 @ 22:52 by Alice Wiley MD) Mother Diabetes Brother Heart disease Hypertension Other Adopted Social History (Updated 07/11/22 @ 23:01 by Alice Wiley MD) Smoking/Tobacco Use Status: Current every day Tobacco Type: e-cigarettes Tobacco: How many years used: 40 Smokeless tobacco user: other Smoking risk assessment performed?: Yes Alcohol Intake: current Alcohol Intake frequency: holidays/special occasions only Alcohol type: hard liquor Drug use: Never Substance use type: does not use Details: PT USES ELECTRONIC CIGARETTES, last used before entry to hospital today. Last alcohol was 06/27/22 current occupation: caregiver Current gender identity: female Do you feel safe at home: Yes Do you feel safe in your relationship?: Yes Time Spent with Patient Time Spent with Patient: 45-69 minutes Time was spent: preparing to see the patient(eg.review tests), obtaining and/or reviewing separately otained hiistory, ordering medications,tests, procedures, indepentently interpreting results, counseling the patient and care coordination
--- NOTE | 2022-07-13 14:22 | PDOC.CMDIS ---
- If Service Date Differs Date of service: 07/13/22 Time of Service: 14:22 LACE Index Scoring Tool - Questions: Length of Stay (in days): 2 Acuity (Admit via E.D.?): Yes Comorbidities: Chronic Pulmonary Disease E.D. Visits: 1 - Answers: Total Score: 8 Risk of Readmission: Low Risk Care Management Discharge Reason for Hospitalization: Acute PE w/suspected RV strain Discharge Plan: Benny returned home today with a resumption of HH services through [facility] [place]. Her daughter drove her home via private vehicle. She will follow up with her PCP and discharge plan of care. Patient/Family Education Needs: Review discharge instructions and limitations, discussion of self care needs including ask me three. Services Needed at Discharge: Home Health Care Services (resume PT)
--- NOTE | 2022-07-14 08:48 | INDS_ITS ---
Date of service: 07/14/22 PT Notes Visit Reasons: Acute PE w/ Suspected RV Strain Physical Therapy Inpatient Discharge Summary Date:?07/14/2022 Dates of service: 07/11/2022 through 07/13/2022 This is a clinical summary of care provided for the duration of dates listed above. No charge was made in the completion of this documentation. Referring Doctor:?Alice Wiley MD PT Orders: PT CONSULT: Limited Ability Precautions: Standard Patient Profile/Admitting Diagnosis:?? Benny is a 66 year old female diagnosis with pulmonary embolus status post total knee arthroplasty approximately 11 days ago.? Noted significant shortness of breath resulting in emergency department visit with admission. PMHx: All Active Problems (Updated 06/19/20 @ 16:13 by DENI Stout) Superficial thrombophlebitis (Acute) Status post total left knee replacement (Acute 12/27/19) Hyperlipidemia (Acute) Mass of right ankle (Acute) Impingement syndrome of right shoulder (Acute) Degenerative joint disease of knee, left (Chronic) Degenerative joint disease of knee, right (Acute) Colitis due to Clostridium difficile (Acute) Antibiotic-associated diarrhea (Acute) Infected hematoma following procedure (Acute) Medical History? Antibiotic-associated diarrhea Colitis due to Clostridium difficile Fibromyalgia Gallstones Gallstones without obstruction of gallbladder GERD (gastroesophageal reflux disease) Hyperlipidemia Hypertension Infected hematoma following procedure Kidney stones Surgical History? EGD - MAC (12/24/16) , Ectopic S/P laparoscopic cholecystectomy (~06/15/19) Status post total left knee replacement (12/27/19) Tonsillectomy Social History/Home Situation: Lives alone in a private home with 3 steps to enter and rails on both sides.? recently passed.? Independent with all of aspects ADLs without the use of an assistive ambulatory device nor adaptive equipment.? Equipment Owned/DME: 4-wheeled walker, front-wheeled walker Subjective:? NT. See most recent PATIENT ASSESSMENT COORDINATOR notes. Objective:? General Observation: NT. See most recent PATIENT ASSESSMENT COORDINATOR notes. Mental Status: NT. See most recent PATIENT ASSESSMENT COORDINATOR notes. Pain: NT. See most recent PATIENT ASSESSMENT COORDINATOR notes. Vital Signs: NT. See most recent PATIENT ASSESSMENT COORDINATOR notes. ROM: Right Upper Extremity: Demonstrates within normal limits right upper extremity range of motion Left Upper Extremity: Demonstrates within normal limits left upper extremity range of motion Right Lower Extremity: Hip flexion WFL. Hip abduction WFL. Knee flexion 95 degrees.? Knee extension -10 degrees.? Ankle dorsiflexion WFL. Ankle plantarflexion WFL. Left Lower Extremity: Hip flexion WFL. Hip abduction WFL. Knee flexion WFL. Ankle dorsiflexion WFL. Ankle plantarflexion WFL. Strength: Right Upper Extremity: Demonstrates good functional strength right upper extremity Left Upper Extremity:? Demonstrates good functional strength left upper extremity Right Lower Extremity: Independent straight leg raise without extension lag, good quad set.? Demonstrates 4/5 hip flexion, 5/5 dorsiflexion plantarflexion Left Lower Extremity: Demonstrates grossly 5/5 left lower extremity Sensation: Intact as to pain and pressure on bilateral lower extremities. BED MOBILITY/TRANSFERS?Sit-stand: SBA?Stand-sit: SBA?Bed-Chair: Stand-pivot transfer with FWW and SBA ?Chair-bed: Stand-pivot transfer with FWW and SBA ?Supine-sit: supervision ?Sit-supine: supervision ?Rolling side to side: supervision ?Moving upwards in bed: supervision ?GAIT?Assistive Device: FWW?Weight bearing: Full ?Assist: SBA ?Distance:? 50x6 ?Deviation: Decreased anita.? Decreased step height on the left LE.? Gait antalgic resulting in increased left lateral lean on FWW. Balance:? Static Sitting: Normal Dynamic Sitting: Normal Static Standing: Good Dynamic Standing: Fair Assessment:?? Patient is a 66 year old female referred to physical therapy services with the diagnosis of acute PE with suspected RV strain.? Patient presents with clinical signs and symptoms consistent with diagnosis, as demonstrated by the following impairment level findings: Impaired joint mobility motor function muscle performance status post total knee arthroplasty along with shortness of breath with diminished gait and balance.? Impairments are contributing to the following functional limitations: Decreased activity tolerance, altered gait, limited right knee range of motion status post total knee arthroplasty, limited strength Goals: Goals X1 week 1. Supine-Sit independent NOT MET 2. Sit-Supine independent NOT MET 3. Sit-Stand independent NOT MET 4. Stand-Sit independent NOT MET 5. Bed-Chair independent NOT MET 6. Chair-Bed independent NOT MET 7. Gait 300 feet with front wheeled walker NOT MET Plan of Care/Treatment Plan: NC DISCHARGE RECOMMENDATIONS: Patient to return to her daughter's home once medically cleared resuming home health services status post total knee arthroplasty. TREATMENT CODE/TIME: JULIANA Thank you for the opportunity to participate in the care of this patient. Norma Vazquez PT, DPT, CLT [facility] [place], [place]
== END 2022-07-13 12:07 | disposition hospice, home (50) | DRG 176 ==
LOC: ER 19:57 → MS 20:41
PROVIDERS: Emergency Medicine; Admitting Provider Internal Medicine; Emergency Provider Emergency Medicine; PCP Nurse Practitioner; Visit Provider Internal Medicine
DX: I26.99 Other pulmonary embolism without acute cor pulmonale (principal); R74.8 Abnormal levels of other serum enzymes; R09.02 Hypoxemia; J44.9 Chronic obstructive pulmonary disease, unspecified; M79.7 Fibromyalgia; I10 Essential (primary) hypertension; E78.5 Hyperlipidemia, unspecified; K21.9 Gastro-esophageal reflux disease without esophagitis; F17.290 Nicotine dependence, other tobacco product, uncomplicated; Z96.653 Presence of artificial knee joint, bilateral; Z79.82 Long term (current) use of aspirin
CPT/HCPCS: 36415; 71275; 80048; 87635; 93005; 94618; 96361; 96374; 96375; 97112; 97161; 97530; 99285; 83735; 83880; 84484; 85025; 93010; 99223; 99239; J1100; J1200; J1650

== ENCOUNTER 2022-07-14 13:47 | Outpatient (CLI) | payer MEDICARE, SELFPAY ==
--- NOTE | 2022-07-14 08:00 | DI.US_ITS ---
Exam(s) US EXTREMITY VENOUS BI EXAM: US EXTREMITY VENOUS BI CLINICAL HISTORY: Acute PE, suspected DVT. TECHNIQUE: Bilateral lower extremity venous ultrasound performed using grayscale, color-flow, and sp ectral Doppler analysis. COMPARISON: No exams were available for comparison FINDINGS: The right common femoral, femoral and popliteal veins demonstrate normal compressibility, augmentatio n, and color Doppler. The posterior tibial veins are patent. The saphenofemoral junctions are unremar kable. There is no evidence of a Albarran's cyst. The soft tissues are unremarkable. There is thrombus s een in a superficial vein in the calf which connects to 1 of the peroneal veins. It measures 6.6 cm in length. The left common femoral, femoral and popliteal veins demonstrate normal compressibility, augmentation , and color Doppler. The posterior tibial veins are patent. The saphenofemoral junctions are unremark able. There is no evidence of a Albarran's cyst. The soft tissues are unremarkable. IMPRESSION: 1. No evidence of a right lower extremity DVT. 2. No evidence of a left lower extremity DVT. 3. Superficial vein thrombosis in the right calf. 4. Randa Galvez NP was contacted with these results by the computer engineering technologist on 07/14/2022. DATA REPOSITORY:
== END 2022-07-14 14:07 ==
PROVIDERS: PCP Nurse Practitioner; Visit Provider Internal Medicine
DX: R10.9 Unspecified abdominal pain (principal); I26.99 Other pulmonary embolism without acute cor pulmonale
CPT/HCPCS: 93970

== ENCOUNTER 2022-07-15 04:33 | Outpatient (CLI) | payer MEDICARE, SELFPAY ==
--- NOTE | 2022-07-15 15:15 | DI.US_ITS ---
APPROVED REPORT EXAM: Comprehensive 2D, Doppler, and color-flow Echocardiogram Other Information Study Quality: Poor. Technically limited study due to body habitus, inability to position patient exa m done supine. Conclusion Technically limited and very suboptimal study Left ventricular chamber size and function appear grossly normal. Unable to accurately assess segmen aishwarya wall motion Right ventricular size appears normal The atria appear normal in size Within the limits of the study, no significant valvular disease is identified Estimated right ventricular systolic pressure is 41 mmHg Wall motion Left Ventricle Technically limited parasternal imaging due to body habitus. The left ventricular systolic function i s grossly normal. The left ventricular ejection fraction is within the normal range. Unable to assess LV wall thickness. There is no ventricular septal defect visualized. LVEF is 55%. Right Ventricle Right ventricle is not well visualized. Right ventricular systolic function could not be assessed. Th e RVSP is 40.9mmHg. Atria The left atrium size is normal. Right atrium is not well visualized. The interatrial septum is intact with no evidence for an atrial septal defect. Aortic Valve The aortic valve is grossly normal in structure. Number of aortic valve leaflets could not be assesse d. There is no aortic valvular stenosis. No aortic regurgitation is present. Mitral Valve The mitral valve is grossly normal in structure. No evidence of mitral valve stenosis. Trace mitral r egurgitation. Tricuspid Valve Tricuspid valve is not well visualized due to body habitus. There is no tricuspid valve stenosis. Mil d tricuspid regurgitation. Pulmonic Valve Pulmonic valve is not well visualized. There is no pulmonic valvular stenosis. Trace pulmonic regurg itation. Great Vessels The aortic root is normal in size. Ascending aorta is not well visualized due to body habitus. Aortic arch is not well visualized due to body habitus. IVC is normal in size and collapses >50% with inspi ration. Pericardium There is no pericardial effusion. 2D Dimensions Ao Root d 2.65 cm F: 2.7 - 3.3 LV Vol A2C d MOD 73.2 mL RA Area A4C 10.79 cm2 LV Vol A4C d MOD 121.3 mL RA Vol/ BSA A4C s A-L 10.3 mL/m2 LA vol/ BSA A2C s A-L 9.5 mL/m2 LVEF (Gutierrez's) 55.77 % F: 54 - 74 LA vol/ BSA A4C s A-L 25.4 mL/m2 LV Volume 69.78 mL F: 46 - 106 LA Vol/ BSA Biplane s A-L 17.7 mL/m2 LV Volume Index 31.01 mL/m2 F: 29 - 61 LA Area A4C s MOD 18.92 cm2 LV Vol Biplane MOD 96.6 mL LA Area A2C s MOD 10.14 cm2 LV EF A4C MOD 55.0 % LV EF A2C MOD 55.6 % LV EF Biplane MOD 55.8 % SV 53.88 mL SV Index 23.95 mL/m2 LV Diastology MV E' medial 0.089 (>0.07 m/s) E/A Ratio 1.9 LV E/e MED 14.55 (<14) MV E Vmax 1.30 (0.4-1.3 m/s) MV E' lateral 0.095 (>0.1 m/s) MV A Vmax 0.70 (0.4-1.3 m/s) LV E/e LAT 13.65 (<14) MV E/A Ratio 1.83 MV E/E' medial 14.56 MV E/E' lateral 13.66 Aortic Valve LVOT Area 3.11 cm2 AoV Area Vmax 1.82 cm2 LVOT Vmax 0.95 m/s AoV Area/ BSA (Vmax) 0.81 cm2/m2 LVOT Mean Larry. 0.65 m/s AQUILES Mean Larry. 1.85 cm2 LVOT Peak Grad 3.6 mmHg AQUILES Mean Larry. Index 0.82 cm2/m2 LVOT Mean Grad 1.9 mmHg LVOT VTI 0.220 m LVOT Diam s 1.95 cm AoV Vmax 1.62 m/s Velocity Ratio 0.59 AoV Mean Larry. 1.08 m/s AoV Peak Grad 10.5 mmHg LVOT SV 68.21 mL AoV Mean Grad 5.4 mmHg AoV VTI 0.340 m AoV Area VTI 2.01 cm2 AoV Area/ BSA (VTI) 0.89 cm/m2 Mitral Valve MV DT 393 (160-240 msec) MV PHT 114 msec MV Area PHT 1.93 cm2 Pulmonary Valve PV Vmax 1.05 (0.5-1.5 m/s) RVOT Peak Gr. 1.07 mmHg PV Peak Grad 4.4 mmHg RVOT Mean Gr. 0.50 mmHg PV Mean Grad 2.3 mmHg RVOT VTI 0.100 m PV VTI 0.218 m RVOT Vmax 0.52 m/s Tricuspid Valve TR Peak Grad 37.9 mmHg TR Vmax 3.08 m/s RA Pressure 3.00 mmHg RVSP (TR) 40.9 mmHg
== END 2022-07-15 04:53 ==
PROVIDERS: PCP Nurse Practitioner; Visit Provider Nurse Practitioner
DX: I26.99 Other pulmonary embolism without acute cor pulmonale (principal)
CPT/HCPCS: 93306

== ENCOUNTER 2022-07-17 12:14 | Outpatient (CLI) | payer MEDICARE, SELFPAY ==
--- NOTE | 2022-07-17 11:45 | DI.RAD_ITS ---
Exam(s) XR KNEE RT 1V XR STANDING ALIGNMENT EXAM: XR STANDING ALIGNMENT and XR knee RT 1 V CLINICAL HISTORY: 1ST POST OP R TKA. TECHNIQUE: 2D digital imaging was performed. Five images were obtained. COMPARISON: CR XR STANDING ALIGNMENT from 06/09/2022 FINDINGS: BONES: The hips are well maintained. There is an old left total knee replacement which appears in go od position. Since the prior examination the patient has undergone a right total knee replacement. The orthopedic hardware appears in good position. No suspicious lucencies are seen around the hardwa re. There is a joint effusion. The ankles are well maintained.There is a 2 cm leg length discrepanc y. The left lower extremity is longer than the right lower extremity. SOFT TISSUE: Normal. IMPRESSION: 1. Status post right total knee replacement. 2. 2 cm leg length discrepancy. DATA REPOSITORY: RADIATION DOSE DELIVERED:
== END 2022-07-17 12:15 | disposition home or self-care (01) ==
LOC: DIORS 12:14
PROVIDERS: PCP Nurse Practitioner; Referring Provider Nurse Practitioner; Visit Provider Student in an Organized Health Care Education/Training Program
DX: Z96.651 Presence of right artificial knee joint (principal); Z47.1 Aftercare following joint replacement surgery; I26.99 Other pulmonary embolism without acute cor pulmonale; Z79.01 Long term (current) use of anticoagulants
CPT/HCPCS: 73560; 77073

== ENCOUNTER 2022-07-30 14:11 | Outpatient (CLI) | payer MEDICARE, SELFPAY ==
--- NOTE | 2022-07-30 13:45 | DI.RAD_ITS ---
Exam(s) XR SHOULDER LT COMPLETE 2+V EXAM: XR SHOULDER LT COMPLETE 2+V CLINICAL HISTORY: left shoulder pain. TECHNIQUE: 2D digital imaging was performed. Three views. COMPARISON: No exams were available for comparison FINDINGS: BONES: No acute fracture is present. No bony destructive lesion is seen. Mild spurring at the unders urface of the acromion. JOINTS: No dislocation present. Minimal spurring at AC joint and glenoid. SOFT TISSUE: Normal. IMPRESSION: Mild degenerative changes. DATA REPOSITORY: RADIATION DOSE DELIVERED:
== END 2022-07-30 14:12 | disposition home or self-care (01) ==
LOC: DIORS 14:11
PROVIDERS: PCP Nurse Practitioner; Referring Provider Nurse Practitioner; Visit Provider Student in an Organized Health Care Education/Training Program
DX: M75.102 Unspecified rotator cuff tear or rupture of left shoulder, not specified as traumatic
CPT/HCPCS: 99213; 73030

== ENCOUNTER → 2022-08-15 10:54 | Outpatient (BNVA) | payer MEDICARE, SELFPAY | PROVIDERS: PCP Nurse Practitioner; Visit Provider Physician Assistant | DX: Z47.1 Aftercare following joint replacement surgery (principal); Z96.651 Presence of right artificial knee joint ==

== ENCOUNTER 2022-08-20 03:23 | Outpatient (CLI) | payer MEDICARE, SELFPAY ==
--- NOTE | 2022-08-20 08:15 | DI.MRI_ITS ---
Exam(s) MR UPPER JOINT LT WO EXAM: MR UPPER JOINT LT WO CLINICAL HISTORY: LEFT SHOULDER PAIN,lt rotator cuff tear,m75.102. TECHNIQUE: Multiplanar multisequence MRI was performed. COMPARISON: CR XR SHOULDER LT COMPLETE 2+V from 07/30/2022 FINDINGS: BONES: There is no fracture or contusion pattern. Subchondral cysts are seen in the greater tuberosit y. JOINTS: Mild degenerative changes are seen at the acromioclavicular joint. There is a large joint ef fusion. There is fluid which extends into the subacromial subdeltoid bursa via the rotator cuff tear . TENDONS: Supraspinatus: There is a full-thickness tear of the supraspinatus tendon anteriorly at its insertion site. Infraspinatus: There is tendinosis of the infraspinatus tendon. There is hyperintense signal seen wi thin the infraspinatus tendon which may represent a partial intrasubstance tear. Subscapularis: Unremarkable. Teres Minor: Unremarkable. Biceps and [place]: Unremarkable. MUSCLES: Unremarkable. GLENOID LABRUM: Unremarkable on this noncontrast examination. SOFT TISSUES: Unremarkable. LIGAMENTS: Unremarkable. OTHER: There is fluid in the subacromial subdeltoid bursa secondary to the rotator cuff tear. IMPRESSION: 1. Full-thickness tear of the supraspinatus tendon anteriorly at its insertion site. 2. Degenerative changes of the acromioclavicular joint. 3. Large glenohumeral joint effusion with fluid extending into the subacromial subdeltoid bursa. DATA REPOSITORY:
== END 2022-08-20 03:43 ==
LOC: DI 03:23
PROVIDERS: PCP Nurse Practitioner; Visit Provider Student in an Organized Health Care Education/Training Program
DX: M75.122 Complete rotator cuff tear or rupture of left shoulder, not specified as traumatic (principal); M19.012 Primary osteoarthritis, left shoulder; M25.412 Effusion, left shoulder
CPT/HCPCS: 73221

== ENCOUNTER → 2022-08-26 14:05 | Outpatient (BNVA) | payer MEDICARE, SELFPAY | PROVIDERS: PCP Nurse Practitioner; Referring Provider Nurse Practitioner; Visit Provider Student in an Organized Health Care Education/Training Program | DX: M75.102 Unspecified rotator cuff tear or rupture of left shoulder, not specified as traumatic (principal); M75.22 Bicipital tendinitis, left shoulder; M75.52 Bursitis of left shoulder | CPT/HCPCS: 99214 ==

== ENCOUNTER 2022-09-27 17:43 | Emergency (ER) | payer MEDICARE, SELFPAY ==
[2022-09-27 17:45] VITALS: BP 188/94; PULSE 69; RESP 20; TEMP 37.1; O2SAT 98
--- NOTE | 2022-09-27 18:10 | ED.GENADUL_ITS ---
Discharge Plan Discharge Details Chief Complaint: Orthopedic Primary Care Provider: Randa Galvez ED Provider: Anish Vazquez Home Meds and New Rx's Prescriptions: No Action omeprazole 10 mg capsule,delayed release(DR/EC) 40 mg PO DAILY Patient Comments: pt. reports 40 mg carbamazepine [Tegretol XR] 100 mg tablet extended release 12 hr 100 mg PO BID trazodone 50 mg tablet 50 mg PO DAILY lisinopril 10 mg tablet 40 mg PO DAILY sertraline [Zoloft] 25 mg tablet 100 mg PO DAILY furosemide [Lasix] 40 MG tablet 40 mg PO DAILY atenolol 100 MG tablet 100 mg PO DAILY Patient Comments: no longer taking gabapentin 800 mg Tablet 800 mg PO QID Eliquis DVT-PE Treat 30D Start 5 mg (74 tabs) tablets,dose pack See Rx Instructions .ROUTE .COMPLEX Qty: 74 0RF Rx Instructions: orally per package directions metoprolol succinate 100 mg Tablet Extended Release 24 Hr 100 mg PO DAILY oxycodone 5 mg Tablet 5 mg PO Q6-12H PRN Medical Decision Making Patient with 3 weeks of right lower extremity pain and swelling. Point of care ultrasound does not reveal any DVT. I have asked the patient to follow-up with her PCP should she want a formal ultrasound of the right lower extremity. I have asked her to follow-up with physical therapy as planned on Thursday as well as with her orthopedic surgeon.. Patient is adamant that she is compliant with her Eliquis therapy. HPI General Date/Time Provider Initiated Documentation: 09/27/22 18:08 . HPI Narrative: Patient presents to the emergency department for evaluation of right leg pain for the past 3-1/2 weeks. She had surgery in June on the knee and has been going to physical therapy. Apparently 3 weeks ago she started having more pain to the right knee essentially behind the knee. She noticed some swelling of the right lower extremity that been there for the past 3-1/2 weeks. Truly no great change in her presentation. With talking with family they informed her that they were concerned that she could have a clot even though she is on Eliquis for PE therapy. For this reason she presents to the emergency department. She is not short of breath more so than at baseline. Her mobility is at baseline. No fevers no chills. Related Data Home Medications Medication Instructions Recorded Confirmed Lasix 40 mg tablet (furosemide) 40 mg PO DAILY 12/09/16 09/27/22 atenolol 100 mg tablet 100 mg PO DAILY 12/09/16 08/26/22 gabapentin 800 mg tablet 800 mg PO QID 06/19/20 09/27/22 carbamazepine 100 mg 100 mg PO BID 06/09/22 09/27/22 tablet,extended release,12 hr (Tegretol XR) omeprazole 10 mg capsule,delayed 40 mg PO DAILY 06/09/22 09/27/22 release trazodone 50 mg tablet 50 mg PO DAILY 06/09/22 09/27/22 apixaban 5 mg (74 tabs) tablets in See Rx Instructions PO .COMPLEX 07/13/22 09/27/22 a dose pack (Eliquis DVT-PE Treat #74 dose pk 30D Start) Zoloft 25 mg tablet (sertraline) 100 mg PO DAILY 07/30/22 09/27/22 lisinopril 10 mg tablet 40 mg PO DAILY 07/30/22 09/27/22 metoprolol succinate 100 mg 100 mg PO DAILY 09/27/22 09/27/22 tablet,extended release 24 hr oxycodone 5 mg tablet 5 mg PO Q6-12H PRN 09/27/22 09/27/22 Previous Rx's Medication Instructions Recorded apixaban 5 mg (74 tabs) tablets in See Rx Instructions PO .COMPLEX 07/13/22 a dose pack (Eliquis DVT-PE Treat #74 dose pk 30D Start) Allergies Allergy/AdvReac Type Severity Reaction Status Date / Time Iodinated Contrast Media Allergy Intermediate rash / Unverified 09/27/22 17:52 itchy General Stated Complaint: Orthopedic JAKE: 3 Review of Systems Narrative: 10 point review of system is negative unless otherwise specified in the HPI PFSH All Active Problems (Updated 08/26/22 @ 14:38 by Wes Ferguson MD) Bursitis of left shoulder (Acute) Tendinitis of long head of biceps brachii of left shoulder (Acute) Left rotator cuff tear (Acute) History of total right knee replacement (Acute 07/02/22) COPD (chronic obstructive pulmonary disease) (Chronic) Tobacco abuse (Acute) Elevated troponin (Acute) Bilateral pulmonary embolism (Acute) Pulmonary emboli (Chronic) Infected hematoma following procedure (Acute) Antibiotic-associated diarrhea (Acute) Colitis due to Clostridium difficile (Acute) Degenerative joint disease of knee, right (Acute) Impingement syndrome of right shoulder (Acute) Mass of right ankle (Acute) Hyperlipidemia (Acute) Status post total left knee replacement (Acute 12/27/19) Superficial thrombophlebitis (Acute) Medical History (Updated 08/26/22 @ 14:38 by Wes Ferguson MD) Fibromyalgia Gallstones Gallstones without obstruction of gallbladder GERD (gastroesophageal reflux disease) History of depression Hx of backache Hypertension Idiopathic pancreatitis Kidney stones Surgical History (Updated 07/17/22 @ 11:51 by Herman Oquendo RN) EGD - MAC (12/24/16) History of total bilateral knee replacement Hx of colonoscopy , Ectopic S/P laparoscopic cholecystectomy (~06/15/19) Tonsillectomy Family History (Updated 07/11/22 @ 22:52 by Alice Wiley MD) Mother Diabetes Brother Heart disease Hypertension Other Adopted Social History (Updated 07/11/22 @ 23:01 by Alice Wiley MD) Smoking/Tobacco Use Status: Current every day Tobacco Type: e-cigarettes Tobacco: How many years used: 40 Smokeless tobacco user: other Smoking risk assessment performed?: Yes Alcohol Intake: current Alcohol Intake frequency: holidays/special occasions only Alcohol type: hard liquor Drug use: Never Substance use type: does not use Details: PT USES ELECTRONIC CIGARETTES, last used before entry to hospital toda y. Last alcohol was 06/27/22 current occupation: caregiver Current gender identity: female Do you feel safe at home: Yes Do you feel safe in your relationship?: Yes Exam Narrative Exam Narrative: General: A,A Ox3, Calm, no apparent distress, well developed, pleasant and cooperative Head Size/Shape: normocephalic, atraumatic Eyes Pupils: PERRLA Extraocular Mobility: intact and symmetrical Conjunctiva: non-injected, anicteric, no discharge Ears, Nose, Throat Nares: patent bilaterally Respiratory Respiratory Effort: no dyspnea Auscultation: clear to auscultation bilaterally, normal breath sounds, no wheezing, no rales/crackles Cardiovascular Heart Auscultation: regular rate and rhythm, normal S1, normal S2, no murmurs, no rubs, no gallops, Musculoskeletal System Joints, Bones, and Muscles: no deformities Extremities: warm and well-perfused, no cyanosis, capillary refill <2 seconds, mild swelling of the right lower extremity. [id number] ultrasound does not reveal any clots of the right lower extremity. All veins from the femoral to the popliteal area are compressible. Skin Skin Inspection: no rash, no lesions, no bruising Neurological Motor: normal tone, normal strength, moving all extremities equally Psychiatric: good insight, good judgement, normal mood and affect Course Vital Signs Vital signs: Vital Signs Temperature 37.1 C 09/27/22 17:45 Pulse 69 09/27/22 17:45 Respiratory Rate 20 09/27/22 17:45 Blood Pressure 188/94 H 09/27/22 17:45 Pulse Oximetry 98 09/27/22 17:45 Temperature 37.1 C 09/27/22 17:45 Temperature Source Skin 09/27/22 17:45 Pulse 69 09/27/22 17:45 Respiratory Rate 20 09/27/22 17:45 Blood Pressure 188/94 H 09/27/22 17:45 Blood Pressure Position Sitting 09/27/22 17:45 Pulse Oximetry 98 09/27/22 17:45 Oxygen Delivery Method Room Air 09/27/22 17:45 Oxygen Flow Rate 0 09/27/22 17:45 Pain Level 10 09/27/22 17:45
== END 2022-09-27 18:23 | disposition home or self-care (01) ==
PROVIDERS: Emergency Provider Emergency Medicine; PCP Nurse Practitioner
DX: M79.604 Pain in right leg (principal)
CPT/HCPCS: 99283

== ENCOUNTER → 2022-09-29 11:12 | Outpatient (BNVA) | payer MEDICARE, SELFPAY | PROVIDERS: PCP Nurse Practitioner; Visit Provider Student in an Organized Health Care Education/Training Program | DX: Z47.1 Aftercare following joint replacement surgery (principal); S86.111D Strain of other muscle(s) and tendon(s) of posterior muscle group at lower leg level, right leg, subsequent encounter; X58.XXXD Exposure to other specified factors, subsequent encounter; Z96.651 Presence of right artificial knee joint ==

== ENCOUNTER → 2022-10-27 11:26 | Outpatient (BNVA) | payer MEDICARE, SELFPAY | PROVIDERS: PCP Nurse Practitioner; Referring Provider Nurse Practitioner | DX: Z47.1 Aftercare following joint replacement surgery (principal); Z96.651 Presence of right artificial knee joint | CPT/HCPCS: 99213 ==

== ENCOUNTER 2023-01-01 02:55 | Outpatient (CLI) | payer MEDICARE, SELFPAY ==
[2023-01-01] MEDS: Omnipaque 350 MG/ML 100 ML BTL IJ (10:07)
[2023-01-01] MEDS: Normal Saline - Diluent 50 ML VIAL IJ (10:09)
--- NOTE | 2023-01-01 10:45 | DI.CT_ITS ---
Exam(s) CT CHEST PE CTA EXAM: CT CHEST PE CTA CLINICAL HISTORY: ACUTE SADDLE PULMONARY EMBOLISH,I26.92. TECHNIQUE: Imaging Protocol: Axial CT angiography was performed with multi-slice acquisition and mu lti-planar and/or 3D reconstructions. CONTRAST MATERIAL: Intravenous: Omnipaque 350 contrast volume:100 mL COMPARISON: CT CT ABDOMEN PELVIS W from 06/30/[address] CHEST PE CTA from 07/11/2022 FINDINGS: Tracheobronchial tree: Patent where visualized. Pulmonary parenchyma: No consolidation or dominant measurable mass. No architectural distortion. Atel ectatic changes are seen in the lungs. Pulmonary Arteries: No evidence of filling defect to suggest pulmonary emboli. Mediastinum and Charline: No dominant adenopathy or fluid collection. The esophagus is unremarkable. Visualized thyroid gland: Unremarkable. Pleura: No effusion or pneumothorax. Heart: There is mild cardiomegaly. No coronary artery calcifications are seen. No pericardial effusi on. RV to LV ratio is less than 1 which is within normal limits. Aorta: Thoracic aorta non-dilated. Atherosclerosis is present. Upper abdomen: Status post cholecystectomy. There is stable hepatic and renal cysts. Soft tissues: Unremarkable. Bones: Within normal limits for the patient's age. IMPRESSION: 1. No evidence of pulmonary embolism or aneurysm. 2. No acute pulmonary process. RADIATION DOSE DELIVERED: Total DLP DATA REPOSITORY: All CT scans at this facility are submitted to the National Radiology Data Registry (NRDR) Dose Index Registry (DIR) with the [employer] (ACR). RADIATION OPTIMIZATION: All CT scans at this facility use at least one of these dose optimization te chniques: automated exposure control; mA and/or kV adjustment per patient size (includes targeted exa ms where dose is matched to clinical indication); or iterative reconstruction.
== END 2023-01-01 03:15 ==
LOC: DI 02:55
PROVIDERS: PCP Nurse Practitioner; Visit Provider Nurse Practitioner
DX: I26.92 Saddle embolus of pulmonary artery without acute cor pulmonale (principal)
CPT/HCPCS: 71275; J3490

== ENCOUNTER → 2023-01-23 03:09 | Outpatient (CLI) | payer MEDICARE, SELFPAY ==
--- NOTE | 2023-01-23 11:25 | DI.DEXA_ITS ---
Exam(s) XR DEXA BONE DENSITY W/WO RUTHANN EXAM: XR DEXA BONE DENSITY W/WO RUTHANN CLINICAL HISTORY: SCREENING FOR OSTEOPOROSIS IN POSTMENOPAUSAL WOMAN, Z78.0 TECHNIQUE: Routine DEXA evaluation of the lumbar spine, hip, or forearm. COMPARISON: No exams were available for comparison FINDINGS: Performed on a Hologic unit. Lateral image: No compression fracture evident. Lumbar Spine total T-score: 4.2 Hip total T-score:1.9 Independent reading at the level of the femoral neck yields T-score of 0.0 Forearm total T-score: 1.0 IMPRESSION: Bone mineral density measures in the normal range. Fracture risk is low. Note: Any spine fracture indicates 5x risk for subsequent spine fracture and 2x risk for subsequent h ip fracture. World Health Organization criteria for BMD interpretation classify patients: Normal...... T- Score at or above -1.0 Osteopenic... T- Score between -1.0 and -2.5 Osteoporosis... T-Score at or below -2.5
--- NOTE | 2023-01-23 11:45 | DI.MAMMO_ITS ---
Exam(s) MAMMO SCREENING EXAM: MAMMO SCREENING CLINICAL HISTORY: SCREENING, Z12.39. TECHNIQUE: Bilateral full field digital CC and MLO mammographic images were obtained with 3D tomosyn thesis and utilizing computer aided detection (CAD). COMPARISON: None available time of this dictation. FINDINGS: Fibroglandular tissue pattern is predominately fatty. There are no CAD designations. There are no spiculated masses nor malignant appearing microcalcification groups. There is a small nodule located posterolaterally, inferiorly in the left breast which is probably a s kin mole. There is no significant architectural distortion nor skin thickening-retraction. IMPRESSION: Benign findings. No radiographic evidence of malignancy. BI-RADS Category 2 - Benign Findings Breast Density - Category A - Almost entirely fatty Breast density Category C or D implies that the patient has dense breast tissue. Dense breast tissue can make it harder to find cancer on a mammogram. Dense breast tissue is also associated with an incr eased risk of breast cancer. This information about the result of the mammogram report was provided to the patient to raise their awareness. Use this report when you speak with the patient about their risks for breast cancer, which includes their family history. At that time, you may recommend additional screening tests (Ultrasoun d or MRI) as these tests may add significant information. A negative radiographic report should not delay biopsy if a dominant or clinically suspicious mass is present. Up to ten percent of cancers are not identified on mammography. A negative report may reinforce clinical impression. Adenosis and dense breasts may obscure an underlying neoplasm. False positive reports average 6 to 10%. Patient will receive a letter notifying them of these results.
== END ==
PROVIDERS: PCP Nurse Practitioner; Visit Provider Nurse Practitioner
DX: Z78.0 Asymptomatic menopausal state (principal); Z13.820 Encounter for screening for osteoporosis; Z12.31 Encounter for screening mammogram for malignant neoplasm of breast
CPT/HCPCS: 77063; 77067; 77080

== ENCOUNTER → 2023-04-30 03:47 | Outpatient (CLI) | payer MEDICARE, SELFPAY ==
--- NOTE | 2023-04-30 09:10 | DI.RAD_ITS ---
Exam(s) XR HIP LT COMPLETE AP PELVIS EXAM: XR HIP LT COMPLETE AP PELVIS CLINICAL HISTORY: LEFT HIP PAIN M25.552. TECHNIQUE: 2D digital imaging was performed. Two views. COMPARISON: No exams were available for comparison FINDINGS: BONES: No acute fracture is present. No bony destructive lesion is seen. JOINTS: No dislocation present. The hip joint spaces are maintained. There is bilateral acetabular spurring, left greater than right. The SI joints and pubic symphysis are unremarkable. Degenerative changes are noted in the lower lumbar spine. SOFT TISSUE: Normal. IMPRESSION: Mild degenerative changes of the hips. DATA REPOSITORY: RADIATION DOSE DELIVERED:
== END ==
PROVIDERS: PCP Nurse Practitioner; Visit Provider Nurse Practitioner
DX: M16.0 Bilateral primary osteoarthritis of hip (principal)
CPT/HCPCS: 73502

== ENCOUNTER → 2023-05-06 10:09 | Outpatient (CLI) | payer MEDICARE, SELFPAY ==
--- NOTE | 2023-05-06 | DI.US_ITS ---
Exam(s) US PELVIS TRANSVAGINAL EXAM: US PELVIS TRANSVAGINAL CLINICAL HISTORY: LLQ PAIN, R10.30,? OVARIAN CYST OR OTHER ETIOLOGY TECHNIQUE: Ultrasound of the pelvis was performed both transabdominal and transvaginal. COMPARISON: CT CT ABDOMEN PELVIS W from 06/19/2019 FINDINGS: UTERUS: Anteverted Measures 7.4 cm length x 4.3 cm AP x 5.0 cm wide. There are 2 uterine fibroids. One is located anteriorly towards the fundus and measures 2 x 1.6 x 1.6 cm.The other fibroid is located lower down and posteriorly and measures 2.4 x 2.1 x 1.8 cm, left of center. Endometrial thickness measures 11 mm. There is a small amount of free fluid in the endometrial canal. CERVIX: There are no obvious nabothian cysts. RIGHT OVARY: Not able to be seen LEFT OVARY: Measures 3 x 2.6 x 2.6 cm No significant cysts nor masses evident in the left ovary. CUL-DE-SAC: No free fluid evident. IMPRESSION: 1. There are 2 uterine fibroids measuring up to 2.4 cm size. One is anteriorly in towards the fundus and the other is posteriorly, left of center. 2. There is thickened endometrium and some fluid in the endometrial canal. Close follow-up recommende d. 3. Right ovary not seen. Left ovary appears unremarkable. No free fluid. DATA REPOSITORY:
== END ==
PROVIDERS: PCP Nurse Practitioner; Visit Provider Nurse Practitioner
DX: R10.30 Lower abdominal pain, unspecified (principal); D25.9 Leiomyoma of uterus, unspecified
CPT/HCPCS: 76830; 76856

== ENCOUNTER → 2023-05-18 04:19 | Outpatient (CLI) | payer MEDICARE, SELFPAY ==
--- NOTE | 2023-05-18 | DI.CT_ITS ---
Exam(s) CT ABDOMEN PELVIS W EXAM: CT ABDOMEN PELVIS W CLINICAL HISTORY: LLQ PAIN R10.32. TECHNIQUE: Imaging Protocol: Axial computed tomography images with coronal and sagittal reformatted images were created and reviewed CONTRAST MATERIAL: Intravenous: Omnipaque 350 Contrast volume:100 ml Oral: yes COMPARISON: CT CT ABDOMEN PELVIS W from 06/30/[address] CHEST PE CTA from 01/01/2023 FINDINGS: ABDOMEN and PELVIS: Lung Bases: No acute findings. Liver: [id number] hepatic steatosis. Stable small cysts. Gallbladder and biliary tract: Status post cholecystectomy. No biliary dilation. Pancreas: Normal density. No abnormal calcifications or inflammatory process. No evidence of mass. Spleen: Normal. Kidneys: Normal size, contour and axis. No radiodense stones. No obstructive uropathy. Stable cyst upper pole left kidney. No suspicious masses seen. Adrenal glands: No masses seen. Vasculature: Abdominal aorta non-dilated. Atherosclerotic changes. Soft tissues: Unremarkable. Bladder: No gross wall thickening. No calculi.No focal mass. Bowel: No obstruction. No bowel wall thickening. Appendix normal. Peritoneal cavity: No ascites. No focal collection or mesenteric inflammatory response. Bones: Degenerative changes and scoliosis in the spine. Reproductive organs: Within normal limits. Lymph nodes: Unremarkable. IMPRESSION:: No acute abnormality in the abdomen and pelvis. RADIATION DOSE DELIVERED: 1,459.6mGy.cm Total DLP DATA REPOSITORY: All CT scans at this facility are submitted to the National Radiology Data Registry (NRDR) Dose Index Registry (DIR) with the [employer] (ACR). RADIATION OPTIMIZATION: All CT scans at this facility use at least one of these dose optimization te chniques: automated exposure control; mA and/or kV adjustment per patient size (includes targeted exa ms where dose is matched to clinical indication); or iterative reconstruction.
[2023-05-18 10:29] LABS: CREATININE 0.9 mg/dL (0.55-1.02); Estimated GFR 70.51 (mL/min/1.73m2)
[2023-05-18] MEDS: Barium Sulfate 2% W/V-Berry Smoothie 450 ML BTL PO (11:00)
[2023-05-18] MEDS: Barium Sulfate 2% W/V-Creamy Vanilla Smoothie 450 ML BTL PO (11:03)
[2023-05-18] MEDS: Normal Saline - Diluent 50 ML VIAL IJ (11:04)
[2023-05-18] MEDS: Omnipaque 350 MG/ML 500 ML BTL-Imaging package 100 ML IJ (11:05)
== END ==
PROVIDERS: PCP Nurse Practitioner; Visit Provider Nurse Practitioner
DX: R10.32 Left lower quadrant pain (principal)
CPT/HCPCS: 74177; 82565

== ENCOUNTER 2023-06-03 09:02 | Emergency (ER) | payer MEDICARE, SELFPAY ==
--- NOTE | 2023-06-03 09:00 | RT.EKG_ITS ---
APPROVED REPORT Exam: Resting ECG Reason for Exam: SOB Patient Location: E HR:71 bpm ECG Measurements Heart Rate 71 AXIS WV 165 P -61 QRSd 99 QRS 15 QT 397 T 59 QTc 432 Conclusion Sinus 71 normal axis no stemi
[2023-06-03 09:06] VITALS: BP 166/82; PULSE 76; RESP 18; TEMP 37.1; O2SAT 95
--- NOTE | 2023-06-03 09:12 | ED.GENADUL_ITS ---
Discharge Plan Disposition Patient Disposition: Home Condition: Stable Discharge Details Clinical Impression: Pulmonary embolism, Pleural effusion on right Primary Care Provider: Randa Galvez ED Provider: Bety Clemente Home Meds and New Rx's Prescriptions: New Eliquis DVT-PE Treat 30D Start 5 mg (74 tabs) tablets,dose pack See Rx Instructions .ROUTE .COMPLEX Qty: 74 0RF Rx Instructions: orally per package directions No Action omeprazole 10 mg capsule,delayed release(DR/EC) 40 mg PO DAILY carbamazepine [Tegretol XR] 100 mg tablet extended release 12 hr 300 mg PO BID trazodone 50 mg tablet 50 mg PO DAILY lisinopril 10 mg tablet 40 mg PO DAILY sertraline [Zoloft] 25 mg tablet 100 mg PO DAILY naproxen 250 mg tablet 250 mg PO BID PRN furosemide [Lasix] 40 MG tablet 40 mg PO DAILY gabapentin 800 mg Tablet 800 mg PO QID metoprolol succinate 100 mg Tablet Extended Release 24 Hr 100 mg PO DAILY Discharge Instructions Instructions: Pulmonary Embolism (ED), Pleural Effusion (ED) Additional Instructions: At this time the fluid in the pleural space can be caused by the pulmonary embolisim. We will place you on Eliquis 10 mg twice daily and 5 mg twice daily thereafter. Please follow up closely with your PCP in 3 days. You were placed on the care management list to assist you in getting an appointment. Follow up with primary care provider in 3-5 days. Return to ED sooner if any worsening shortness of breath, chest pain, dizziness, lightheadedness or concerns. Stand Alone Forms: Work Release HPI General Mode of arrival: ambulatory . Date/Time Provider Initiated Documentation: 06/03/23 09:03 . Limitations to Documentation: no limitations . Information obtained by: patient, family, RN notes reviewed and old records reviewed . HPI Narrative: 67-year-old female presents to the ER with a chief complaint of right-sided chest pain which radiates into her back, associated with shortness of breath. She reports that this began last night. She does report cough which is known and nonproductive. She does have a history of COPD and bilateral PEs. She did stop Xarelto in January. She also reports right knee pain which she had surgery on last year. She states that she has had some recent falls and she is afraid that she has reinjured her right knee. She does not take aspirin daily. Other past medical history includes GERD, kidney stones fibromyalgia gallstones, pancreatitis depression. She has had bilateral knee replacements cholecystectomy. Denies any nausea vomiting or diarrhea. Related Data Home Medications Medication Instructions Recorded Confirmed Lasix 40 mg tablet (furosemide) 40 mg PO DAILY 12/09/16 06/03/23 gabapentin 800 mg tablet 800 mg PO QID 06/19/20 06/03/23 carbamazepine 100 mg 300 mg PO BID 06/09/22 06/03/23 tablet,extended release,12 hr (Tegretol XR) omeprazole 10 mg capsule,delayed 40 mg PO DAILY 06/09/22 06/03/23 release trazodone 50 mg tablet 50 mg PO DAILY 06/09/22 06/03/23 Zoloft 25 mg tablet (sertraline) 100 mg PO DAILY 07/30/22 06/03/23 lisinopril 10 mg tablet 40 mg PO DAILY 07/30/22 06/03/23 metoprolol succinate 100 mg 100 mg PO DAILY 09/27/22 06/03/23 tablet,extended release 24 hr naproxen 250 mg tablet 250 mg PO BID PRN 10/27/22 06/03/23 apixaban 5 mg (74 tabs) tablets in See Rx Instructions PO .COMPLEX 06/03/23 a dose pack (Eliquis DVT-PE Treat #74 dose pk 30D Start) Previous Rx's Medication Instructions Recorded apixaban 5 mg (74 tabs) tablets in See Rx Instructions PO .COMPLEX 06/03/23 a dose pack (Eliquis DVT-PE Treat #74 dose pk 30D Start) Allergies Allergy/AdvReac Type Severity Reaction Status Date / Time No Known Allergies Allergy Verified 06/03/23 12:03 General Stated Complaint: SOB JAKE: 3 Review of Systems All systems reviewed & are unremarkable except as noted in HPI and below Cardiovascular Cardiovascular: Reports dyspnea Respiratory Respiratory: Reports cough and Reports dyspnea Gastrointestinal Gastrointestinal: Denies diarrhea, Denies nausea and Denies vomiting Exam Narrative Exam Narrative: Constitutional: Awake, alert, appears stated age, pursed lip breathing, increased work of breathing, no cyanosis. No diaphoresis. HEENT: Normocephalic, no signs of trauma , TMs WNL bilaterally, No JVD. Lungs: CTA bilaterally, no wheezes, rubs, rhonchi or crackles auscultated. Cardiac: RRR, No rubs, gallops, or murmurs Extremities: No pedal edema, no calf pain. Neuro: A&O x 4, no focal neuro deficits noted. Course Vital Signs Vital signs: Vital Signs Temperature 37.1 C 06/03/23 09:06 Pulse 76 06/03/23 09:06 Respiratory Rate 18 06/03/23 09:06 Blood Pressure 166/82 H 06/03/23 09:06 Pulse Oximetry 95 06/03/23 09:06 Temperature 37.1 C 06/03/23 09:06 Temperature Source Skin 06/03/23 09:06 Pulse 76 06/03/23 09:06 Respiratory Rate 18 06/03/23 09:06 Respiratory Effort Normal, Non-Labored 06/03/23 09:10 Blood Pressure 166/82 H 06/03/23 09:06 Blood Pressure Position Sitting 06/03/23 09:06 Pulse Oximetry 95 06/03/23 09:06 Oxygen Delivery Method Room Air 06/03/23 09:06 Oxygen Flow Rate 0 06/03/23 09:06 Pain Level 3 06/03/23 09:06 Medical Decision Making 67-year-old female presents to the ER with a chief complaint of right-sided chest pain which radiates into her back, associated with shortness of breath. She reports that this began last night. She does report cough which is known and nonproductive. She does have a history of COPD and bilateral PEs. She did stop Xarelto in January. She also reports right knee pain which she had surgery on last year. She states that she has had some recent falls and she is afraid that she has reinjured her right knee. She does not take aspirin daily. Other past medical history includes GERD, kidney stones fibromyalgia gallstones, pancreatitis depression. She has had bilateral knee replacements cholecystectomy. Denies any nausea vomiting or diarrhea. EKG was reviewed by Dr. Locke ER attending, normal sinus rhythm, no ST elevation. Old EKG available for review. Workup ordered including CBC CMP, PT PTT, troponin, chest CT. Call received from radiologist positive for PE in the right posterior basilar area and moderate pleural effusion. Will discuss results with patient and offer admission. Discussed results with patient, hospitalist chris. Spoke with Dr. Mendoza who recommends PO Xarelto, or former anticoagulant and discharge with close follow up, he states unless her sat is low, at this time she does not meet admission criteria. Eliquis ordered. Will discuss plan and close follow up with patient and family. Discussed home care, risks, and follow up care with patient and family, they are concerned about being able to afford the medication. First dose of Eliquis given here in the department. Discussed medication assistance with care management, coupon given. Patient remained hemodynamically stable on room air throughout the remainder of her stay. This text was generated using [email or web address] system, please disregard any oddities of phrase or misspellings. Imaging Data Radiologic Study: Imaging: CT Scan Radiologist's impression: Exam(s) CT CHEST PE CTA EXAM: CT CHEST PE CTA CLINICAL HISTORY: Chest Pain, SOB. TECHNIQUE: Imaging Protocol: Axial CT angiography was performed with multi- slice acquisition and multi-planar reconstructions as well as axial, coronal and sagittal MIP reconstructions. CONTRAST MATERIAL: Intravenous: Omnipaque 350 Contrast volume:100 ml COMPARISON: CT CT CHEST PE CTA from 01/01/[address] ABDOMEN PELVIS W from 05/18/2023 FINDINGS: Pulmonary Arteries: Lack of opacification of posterior right lower lobe pulmonary artery branches.. Tracheobronchial tree: No mucous plugging. Mediastinum and Charline: No dominant adenopathy or fluid collection. Pulmonary parenchyma: Limited evaluation due to respiratory motion and expiratory changes. Right basilar atelectasis. No consolidation or dominant measurable mass. Pleura: Small to moderate-sized right pleural effusion.. No left pleural effusion. Heart: The heart is mildly dilated. Mild coronary artery calcifications are seen. Aorta: Thoracic aorta non-dilated. No dissection. Upper abdomen: No acute findings. Bones: Unremarkable for age. Tubes, Catheters, and Lines: None Soft tissues: Unremarkable. IMPRESSION: Posterior right lower lobe pulmonary embolism. Small right pleural effusion and right basilar atelectasis. Findings called to Bety Clemente of the emergency department. Lab Data Lab results reviewed: Yes I reviewed the patient's lab results. Labs: Laboratory Tests Range/Units 06/03/23 06/03/23 09:45 10:00 WBC (4.4-10.8) 10^3/uL 8.23 RBC (3.93-5.22) 10^6/uL 4.15 Hgb (11.2-15.7) g/dL 12.6 Hct (36.0-46.0) % 38.4 MCV (80-95) fL 93 MCH (27.0-33.0) pg 30.4 MCHC (32.0-36.0) % 32.8 RDW (11.7-14.6) % 13.5 Plt Count (130-400) 10^3/uL 202 MPV (8.0-11.0) fL 11.8 H Immature Gran % 0.4 Neutrophils % 83.0 Lymphocytes % 9.8 Monocytes % 5.2 Eosinophils % 1.0 Basophils % 0.6 Nucleated RBC % (0.0-0.3) % 0.0 Absolute Neutrophils (1.2-6.7) 10^3/uL 6.83 H Absolute Lymphocytes (1.2-3.4) 10^3/uL 0.81 L Absolute Monocytes (0.1-0.8) 10^3/uL 0.43 Absolute Eosinophils (0.0-0.7) 10^3/uL 0.08 Absolute Basophils (0.0-0.2) 10^3/uL 0.05 PT (9.1-11.1) sec 10.1 INR (0.9-1.1) 1.0 APTT (23.6-32.8) sec 29.9 Sodium (136-145) mmol/L 144 Potassium (3.5-5.1) mmol/L 3.8 Chloride (98-107) mmol/L 105 Carbon Dioxide (21.0-32.0) mmol/L 28.6 Anion Gap (3-11) mmol/L 10.4 BUN (7-18) mg/dL 12 Creatinine (0.55-1.02) mg/dL 0.8 Est GFR (CKD-EPI 2020) (mL/min/1.73m2) 81.21 Glucose (74-106) mg/dL 152 H Calcium (8.5-10.1) mg/dL 9.0 Magnesium (1.8-2.4) mg/dL 1.9 Total Bilirubin (0.2-1.0) mg/dL 0.5 AST (15-37) U/L 11 L ALT (14-59) U/L 13 L Alkaline Phosphatase (46-116) U/L 151 H Troponin I (< or =60) ng/L < 50 Total Protein (6.4-8.2) g/dL 7.3 Albumin (3.4-5.0) g/dL 3.3 L Quality:SDOH Health Related Social Needs: No Data to Display PFSH All Active Problems (Updated 06/03/23 @ 12:06 by Bety Clemente NP) Pleural effusion on right (Acute) Pulmonary embolism (Chronic) Strain of right gastrocnemius muscle (Acute) Bursitis of left shoulder (Acute) Tendinitis of long head of biceps brachii of left shoulder (Acute) Left rotator cuff tear (Acute) History of total right knee replacement (Acute 07/02/22) COPD (chronic obstructive pulmonary disease) (Chronic) Tobacco abuse (Acute) Elevated troponin (Acute) Bilateral pulmonary embolism (Acute) Pulmonary emboli (Chronic) Infected hematoma following procedure (Acute) Antibiotic-associated diarrhea (Acute) Colitis due to Clostridium difficile (Acute) Impingement syndrome of right shoulder (Acute) Mass of right ankle (Acute) Hyperlipidemia (Acute) Status post total left knee replacement (Acute 12/27/19) Superficial thrombophlebitis (Acute) Medical History Hx of backache History of depression Idiopathic pancreatitis Gallstones without obstruction of gallbladder Gallstones Hypertension GERD (gastroesophageal reflux disease) Kidney stones Fibromyalgia Surgical History History of total bilateral knee replacement Hx of colonoscopy S/P laparoscopic cholecystectomy (~06/15/19) Tonsillectomy , Ectopic EGD - MAC (12/24/16) Family History Mother Diabetes Brother Heart disease Hypertension Other Adopted Social History Smoking/Tobacco Use Status: Current every day Tobacco Type: e-cigarettes Tobacco: How many years used: 40 Smokeless tobacco user: other Smoking risk assessment performed?: Yes Alcohol Intake: current Alcohol Intake frequency: holidays/special occasions only Alcohol type: hard liquor Drug use: Never Substance use type: does not use Details: PT USES ELECTRONIC CIGARETTES, last used before entry to hospital today. Last alcohol was 06/27/22 Housing: house current occupation: caregiver Current gender identity: female Do you feel safe at home: Yes Do you feel safe in your relationship?: Yes
--- NOTE | 2023-06-03 09:15 | DI.CT_ITS ---
Exam(s) CT CHEST PE CTA EXAM: CT CHEST PE CTA CLINICAL HISTORY: Chest Pain, SOB. TECHNIQUE: Imaging Protocol: Axial CT angiography was performed with multi-slice acquisition and mu lti-planar reconstructions as well as axial, coronal and sagittal MIP reconstructions. CONTRAST MATERIAL: Intravenous: Omnipaque 350 Contrast volume:100 ml COMPARISON: CT CT CHEST PE CTA from 01/01/[address] ABDOMEN PELVIS W from 05/18/2023 FINDINGS: Pulmonary Arteries: Lack of opacification of posterior right lower lobe pulmonary artery branches.. Tracheobronchial tree: No mucous plugging. Mediastinum and Charline: No dominant adenopathy or fluid collection. Pulmonary parenchyma: Limited evaluation due to respiratory motion and expiratory changes. Right bas ilar atelectasis. No consolidation or dominant measurable mass. Pleura: Small to moderate-sized right pleural effusion.. No left pleural effusion. Heart: The heart is mildly dilated. Mild coronary artery calcifications are seen. Aorta: Thoracic aorta non-dilated. No dissection. Upper abdomen: No acute findings. Bones: Unremarkable for age. Tubes, Catheters, and Lines: None Soft tissues: Unremarkable. IMPRESSION: Posterior right lower lobe pulmonary embolism. Small right pleural effusion and right basilar atelec tasis. Findings called to Bety Clemente of the emergency department. RADIATION DOSE DELIVERED: Total DLP DATA REPOSITORY: All CT scans at this facility are submitted to the National Radiology Data Registry (NRDR) Dose Index Registry (DIR) with the [employer] (ACR). RADIATION OPTIMIZATION: All CT scans at this facility use at least one of these dose optimization te chniques: automated exposure control; mA and/or kV adjustment per patient size (includes targeted exa ms where dose is matched to clinical indication); or iterative reconstruction.
[2023-06-03 09:55] LABS: Abs Immature Grans 0.03 10^3/uL (0.0-0.06); Absolute Basophil Count 0.05 10^3/uL (0.0-0.2); Absolute Eosinophil Count 0.08 10^3/uL (0.0-0.7); Absolute Lymphocyte Count 0.81 10^3/uL (1.2-3.4); Absolute Monocyte Count 0.43 10^3/uL (0.1-0.8); Absolute Neutrophil Count 6.83 10^3/uL (1.2-6.7); Basophils % 0.6; HCT 38.4 % (36.0-46.0); HGB 12.6 g/dL (11.2-15.7); Immature Grans % 0.4; Lymphocytes % 9.8; MCH 30.4 pg (27.0-33.0); MCHC 32.8 % (32.0-36.0); MCV 93 fL (80-95); MPV 11.8 fL (8.0-11.0); Monocytes % 5.2; Platelet Count 202 10^3/uL (130-400); RBC 4.15 10^6/uL (3.93-5.22); RDW 13.5 % (11.7-14.6); RDW-SD 45.5 fL; WBC 8.23 10^3/uL (4.4-10.8)
[2023-06-03 10:14] LABS: ALT 13 U/L (14-59); AST 11 U/L (15-37); Albumin 3.3 g/dL (3.4-5.0); Alkaline Phosphatase 151 U/L (46-116); Anion Gap 10.4 mmol/L (3-11); BUN 12 mg/dL (7-18); Bilirubin, Total 0.5 mg/dL (0.2-1.0); CO2 28.6 mmol/L (21.0-32.0); CREATININE 0.8 mg/dL (0.55-1.02); Chloride 105 mmol/L (98-107); Estimated GFR 81.21 (mL/min/1.73m2); Glucose 152 mg/dL (74-106); Magnesium 1.9 mg/dL (1.8-2.4); Potassium 3.8 mmol/L (3.5-5.1); Sodium 144 mmol/L (136-145); Total Protein 7.3 g/dL (6.4-8.2)
[2023-06-03 10:15] LABS: Troponin I < 50 ng/L (< or =60)
[2023-06-03 10:25] LABS: PTT Activated 29.9 sec (23.6-32.8); Prothrombin Time 10.1 sec (9.1-11.1)
[2023-06-03] MEDS: Normal Saline - Diluent 50 ML VIAL IJ (10:59)
[2023-06-03] MEDS: Omnipaque 350 MG/ML 100 ML BTL IJ (11:00)
--- NOTE | 2023-06-03 11:22 | DI.RAD_ITS ---
Exam(s) XR KNEE RT 3V AP,LAT,KWADWO EXAM: XR KNEE RT 3V AP,LAT,KWADWO CLINICAL HISTORY: Knee pain. TECHNIQUE: 2D digital imaging was performed. Three views. COMPARISON: CR XR KNEE RT 1V from 07/17/2022 FINDINGS: BONES: No acute fracture is present. No bony destructive lesion is seen. JOINTS: A total knee prosthesis is in place and is normally aligned. No joint effusion is seen. SOFT TISSUE: Normal. IMPRESSION: No acute abnormality. DATA REPOSITORY: RADIATION DOSE DELIVERED:
--- NOTE | 2023-06-03 12:13 | NUR.NOTE ---
Referral given to care management, for a PE follow up in 3 days. Nursing Note:
[2023-06-03] MEDS: Apixaban 5 MG TAB 10 MG PO (12:31)
[2023-06-03 12:56] LABS: Troponin I < 50 ng/L (< or =60)
[2023-06-03 13:21] VITALS: BP 139/81; PULSE 71; RESP 14; O2SAT 98
[2023-06-03 13:32] VITALS: BP 139/81; PULSE 71; RESP 14; TEMP 37.1; O2SAT 98
== END 2023-06-03 13:21 | disposition home or self-care (01) ==
PROVIDERS: Emergency Provider Registered Nurse Emergency; PCP Nurse Practitioner
DX: I26.99 Other pulmonary embolism without acute cor pulmonale (principal); J90 Pleural effusion, not elsewhere classified; J44.9 Chronic obstructive pulmonary disease, unspecified; I10 Essential (primary) hypertension; Z96.651 Presence of right artificial knee joint
CPT/HCPCS: 36415; 71275; 73562; 80053; 93005; 99285; 83735; 84484; 85025; 85610; 85730; 93010; 99284; J3490

== ENCOUNTER 2023-06-29 16:44 | Outpatient (REF) | payer MEDICARE, SELFPAY ==
--- NOTE | 2023-06-29 11:53 | ENDOMET_PTH ---
PATIENT: Benny Pena LOC: [facility] U#:[id number] AGE/SX: 67/F ROOM: RE06/29/[address]: Marietta William DO : 1955 BED: DIS: 06/29/2023 SPEC #: [id number] RECD: 06/29/23 17:44 STATUS: PAYAM REQ #: [id number] KAMALJIT: 06/29/23 11:[address]: Marietta William DEPT: Surgical Specimen RECD BY: Aleyda Barron ENTERED: 06/29/23 17:44 SP TYPE: Endomet OTHR DR: Randa Galvez Tissues: 1 - ENDOMETRIUM BX/ISRAELETTE Procedures: GROSS AND MICRO LEVEL 4 Comments: [id number]
== END 2023-06-29 16:45 | disposition home or self-care (01) ==
LOC: LBN 16:44
PROVIDERS: PCP Nurse Practitioner; Visit Provider Obstetrics & Gynecology
DX: R93.89 Abnormal findings on diagnostic imaging of other specified body structures (principal); D25.9 Leiomyoma of uterus, unspecified; I26.99 Other pulmonary embolism without acute cor pulmonale; D26.0 Other benign neoplasm of cervix uteri
CPT/HCPCS: 88305

== ENCOUNTER 2023-07-03 09:51 | Outpatient (CLI) | payer MEDICARE, SELFPAY ==
--- NOTE | 2023-07-03 10:00 | DI.RAD_ITS ---
Exam(s) XR KNEE RT 2V AP,LAT EXAM: XR KNEE RT 2V AP,LAT CLINICAL HISTORY: ANNUAL F/U R TKA. TECHNIQUE: 2D digital imaging was performed. Two images were obtained. AP and lateral views were ob tained. COMPARISON: No exams were available for comparison FINDINGS: BONES: There are stable post operative changes of a right total knee replacement present. No fractur e or dislocation. JOINTS: The orthopedic hardware is in good position. No evidence of hardware loosening. SOFT TISSUE: Normal. IMPRESSION: Stable right total knee replacement. DATA REPOSITORY: RADIATION DOSE DELIVERED:
== END 2023-07-03 09:52 | disposition home or self-care (01) ==
LOC: DIORS 09:51
PROVIDERS: PCP Nurse Practitioner; Referring Provider Nurse Practitioner; Visit Provider Physician Assistant
DX: Z47.1 Aftercare following joint replacement surgery; Z96.651 Presence of right artificial knee joint
CPT/HCPCS: 99213; 73560

== ENCOUNTER 2023-09-21 03:22 | Outpatient (CLI) | payer MEDICARE, SELFPAY ==
[2023-09-21 12:29] LABS: HCT 38.6 % (36.0-46.0); HGB 12.4 g/dL (11.2-15.7); MCH 30.2 pg (27.0-33.0); MCHC 32.1 % (32.0-36.0); MCV 94 fL (80-95); MPV 11.7 fL (8.0-11.0); Platelet Count 218 10^3/uL (130-400); RBC 4.11 10^6/uL (3.93-5.22); RDW 13.7 % (11.7-14.6); RDW-SD 47.6 fL; WBC 5.47 10^3/uL (4.4-10.8)
== END 2023-09-21 03:23 | disposition home or self-care (01) ==
LOC: LBO 03:22
PROVIDERS: PCP Nurse Practitioner; Visit Provider Obstetrics & Gynecology
DX: Z01.818 Encounter for other preprocedural examination (principal)
CPT/HCPCS: 36415; 85027; 86850; 86900; 86901

== ENCOUNTER 2023-09-23 06:22 | Day surgery (SDC) | payer MEDICARE, SELFPAY ==
[2023-09-23] VITALS (19 sets, daily range): BP systolic 139–173; BP diastolic 72–113; PULSE 54–65; RESP 12–20; TEMP 36.2–36.5; O2SAT 90–97; BMI 40.6
--- NOTE | 2023-09-23 06:57 | W.ANESPRE ---
General Info Date of Service Date Performed: 09/23/23 Height: 5 ft 6 in Weight: 114.078 kg Body Mass Index (BMI): 40.6 Surgical Procedure: Operation Date: 09/23/23 07:40 Proposed Procedure Side Surgeon p Dilation & Curettage with Hysteroscopy Marietta William DO Meds Allergies and Home Medications Allergies Allergy/AdvReac Type Severity Reaction Status Date / Time No Known Allergies Allergy Verified 09/22/23 10:47 Home Medication Medication Instructions Recorded Lasix 40 mg tablet (furosemide) 40 mg PO DAILY 12/09/16 gabapentin 800 mg tablet 800 mg PO QID 06/19/20 omeprazole 10 mg capsule,delayed 40 mg PO DAILY 06/09/22 release trazodone 50 mg tablet 50 mg PO DAILY 06/09/22 Zoloft 25 mg tablet (sertraline) 100 mg PO DAILY 07/30/22 lisinopril 10 mg tablet 40 mg PO DAILY 07/30/22 metoprolol succinate 100 mg 100 mg PO DAILY 09/27/22 tablet,extended release 24 hr naproxen 250 mg tablet 250 mg PO BID PRN 10/27/22 apixaban 5 mg (74 tabs) tablets in See Rx Instructions PO .COMPLEX 06/03/23 a dose pack ([employer] DVT-PE Treat #74 dose pk 30D Start) oxycodone-acetaminophen 2.5 mg-325 1 tab PO Q8H PRN 06/29/23 mg tablet amlodipine 10 mg tablet 10 mg PO DAILY 09/21/23 carbamazepine 100 mg 200 mg PO BID 09/21/23 tablet,extended release,12 hr (Tegretol XR) levothyroxine 25 mcg capsule 25 mcg PO DAILY 09/21/23 Current Visit Medications: Current Medications Generic Name Dose Route Start Last Admin Trade Name Freq PRN Reason Stop Dose Admin Sodium Chloride 1,000 mls @ 125 mls/hr 09/23/23 06:00 Saline 1000ml Bag IV 09/23/23 23:59 [facility] IV Miscellaneous Supplies 1 each 09/23/23 06:00 Iv Access IV 09/23/23 23:59 DIRECTED GERMAN Sodium Chloride 0 ml 09/23/23 06:00 Normal Saline Flush 10 Ml Syr IV 09/23/23 23:59 PRN PRN Sodium Chloride 0 ml 09/23/23 06:00 Normal Saline 10 Ml Vial IJ 09/23/23 23:59 DIRECTED PRN Sterile Water 0 ml 09/23/23 06:00 Water,Injection,Sterile 10 Ml Vial IJ 09/23/23 23:59 DIRECTED PRN PFSH Active Problems Active Problems: Problem Status Onset Code Uterine fibroid D25.9 Thickened endometrium R93.89 Strain of right gastrocnemius muscle S86.111A Bursitis of left shoulder M75.52 Tendinitis of long head of biceps brachii of left shoulder M75.22 Left rotator cuff tear M75.102 COPD (chronic obstructive pulmonary disease) J44.9 Tobacco abuse Z72.0 Elevated troponin R77.8 Bilateral pulmonary embolism I26.99 Pulmonary emboli I26.99 Infected hematoma following procedure Antibiotic-associated diarrhea K52.1, T36.95XA Colitis due to Clostridium difficile A04.72 Degenerative joint disease of knee, right M17.11 Impingement syndrome of right shoulder M75.41 Mass of right ankle R22.41 Hyperlipidemia E78.5 Superficial thrombophlebitis I80.9 Medical History Medical History Hx of backache History of depression Idiopathic pancreatitis Gallstones without obstruction of gallbladder Gallstones Hypertension GERD (gastroesophageal reflux disease) Kidney stones Fibromyalgia Surgical History Surgical History History of total right knee replacement (07/02/22) Status post total left knee replacement (12/27/19) History of total bilateral knee replacement Hx of colonoscopy S/P laparoscopic cholecystectomy (~06/15/19) Tonsillectomy , Ectopic EGD - MAC (12/24/16) Tobacco Smoking/Tobacco Use Status: Current every day Tobacco Type: e-cigarettes Smokeless tobacco user: other Alcohol Alcohol Intake: current Alcohol intake frequency: holidays/special occasions only Alcohol type: hard liquor Substance Use Substance use: Never Substance use type: does not use Vital Signs and Lab Results Lab Results Blood Type / Crossmatch: Antibody Screen NEGATIVE 09/21/23 Complete Blood Count: White Blood Count 5.47 10^3/uL (4.4-10.8) 09/21/23 12:21 Red Blood Count 4.11 10^6/uL (3.93-5.22) 09/21/23 12:21 Hemoglobin 12.4 g/dL (11.2-15.7) 09/21/23 12:21 Hematocrit 38.6 % (36.0-46.0) 09/21/23 12:21 Platelet Count 218 10^3/uL (130-400) 09/21/23 12:21 Complete Metabolic Panel: No Data to Display Liver Function Panel: No Data to Display Coagulation Panel: No Data to Display Cardiac Panel: No Data to Display Arterial Blood Gas: No Data to Display Venous Blood Gas: No Data to Display Pancreas Panel: No Data to Display Thyroid Panel: No Data to Display Infectious Disease: No Data to Display Blood Cultures: No Data to Display Toxicology Panel: No Data to Display Anesthesia Assessment and Plan Anesthesia History Personal History: No History of Anesthesia Complications Family History: No Family History of Anesthesia Complications Exercise Tolerance Exercise Tolerance: Metabolic Equivalents>4 Pertinent Negatives Pertinent Negatives: No Symptoms of GERD (Rx) Cardiac & Pulmonary Exam Cardiac Exam: Normal S1/S2 Heart Sounds Pulmonary Exam: Clear Bilateral Breath Sounds Implantable Cardiac Device Does patient have a Pacemaker or an ICD?: No Airway Exam Known Difficult Airway: No Mallampati Class: 2 Mouth Opening: Normal (> 3cm) Thyromental Distance: Greater than 3 cm Neck Range of Motion: Full ROM Neck Circumference: Thick Teeth Condition: Removable Dentures/Plates Upper ASA Classification ASA Score: ASA 2 Emergency Case?: No NPO Status NPO Status: NPO Clears >2 hours, Solids >8 hours Anesthesia Plan Resuscitation Status: Full Code Anesthesia Technique: General Anesthesia Airway Planned: LMA Monitors Used: Standard Monitors
[2023-09-23] MEDS: Normal Saline 1,000 ML 125 ML IV (07:20)
--- NOTE | 2023-09-23 07:48 | ENDO_PTH ---
PATIENT: Benny Pena LOC: [facility] U#:[id number] AGE/SX: 67/F ROOM: RE09/23/[address]: Marietta William DO : 1955 BED: DIS: 09/23/2023 SPEC #: [id number] RECD: 09/23/23 12:58 STATUS: PAYAM RE #: [id number] KAMALJIT: 09/23/23 07:[address]: Marietta William DEPT: Surgical Specimen RECD BY: Aleyda Barron ENTERED: 09/23/23 12:59 SP TYPE: Endo OTHR DR: Randa Galvez Tissues: 1 - ENDOCERVICAL BX/CURRETTE 2 - ENDOMETRIUM BX/CURRETTE Procedures: GROSS AND MICRO LEVEL 4 Comments: [id number]
[2023-09-23] MEDS: Silver Nitrate Stick 1 EACH (07:50)
--- NOTE | 2023-09-23 08:06 | W.PM.OP ---
Date of service: 09/23/23 Time of Service: 08:06 Operative Note Operative Note DATE OF PROCEDURE: 09/23/23 PRE-OP DIAGNOSIS: Thickened endometrium, postmenopausal bleeding POST-OP DIAGNOSIS: same (No intrauterine pathology noted) PROCEDURE: Hysteroscopy with dilation and curettage SURGEON: Marietta William ANESTHESIA TYPE: General LMA/ETT Refer to Anesthesia Record ESTIMATED BLOOD LOSS: 5 PATHOLOGY: other (1. Endocervical curettage 2. Endometrial curettage) COMPLICATIONS: None Patient was transported to: same day Indications: Thickened endometrium, postmenopausal bleeding Findings: Normal-appearing endometrial cavity, smooth, regular, no polyps or thickening noted. Procedure Description: After full informed consent was obtained, patient was taken the operating suite with an IV running. She was placed in the modified dorsolithotomy position in [facility] stirrups while awake to ensure no knee, hip, or back pain. Pneumatic compression stockings were on and running prior to anesthesia. Anesthesia was administered via LMA. She was prepped and draped in the usual sterile fashion and a timeout was held. Exam under anesthesia revealed a uterus that was midline and mobile. Speculum was inserted into the vaginal vault. Cervix was identified and grasped gently with a single-tooth tenaculum. The cervical os was systematically dilated to the point that a 4 mm hysteroscope could be passed with ease. With instillation of normal saline via fluid management system, the endometrial cavity was inspected and noted to be free of polyp, fibroid, thickening. The hysteroscope portion was completed and a fractional dilation and curettage was performed with endocervical sampling first followed by endometrial sampling. The tenaculum was removed and puncture sites were cauterized with silver nitrate to achieve excellent hemostasis. The speculum was then removed and the patient was returned to the dorsal supine position when she awoke from anesthesia without difficulty. Fluid deficit from the hysteroscope portion was 25 cc. Complications: None apparent Fluids: Crystalloid per anesthesia Pathology: 1. Endocervical curetting 2. Endometrial curetting Findings: Smooth regular endometrium with no intrauterine pathology noted. EBL: 5 mL
--- NOTE | 2023-09-23 09:30 | W.ANESPOSTOP ---
Postoperative Evaluation Date, Time and Location Date Performed: 09/23/23 Time Performed: 09:30 Patient Location: Day [facility] Unit Vital Signs Most Recent Imported Vital Signs: Most Recent Vital Signs Temp Pulse Resp BP Pulse Ox 36.2 C L 54 L 15 167/91 H 96 09/23/23 08:54 09/23/23 08:54 09/23/23 08:54 09/23/23 08:54 09/23/23 08:54 Pain Score Most Recent Pain Score: Most Recent Pain Score Pain Level 0 09/23/23 08:54 Assessment Mental Status: Awake (Alert & Oriented to Patient Baseline) Airway and Respiratory Function: Patent airway with normal (patient baseline) respiratory exam Cardiovascular Function: Hemodynamically Stable Hydration Status: Adequately Hydrated Nausea & Vomiting: No Nausea or Vomiting Pain: Pt. Denies Any Pain Peripheral Nerve Block: Patient did not receive a nerve block
== END 2023-09-23 09:50 | disposition home or self-care (01) ==
PROVIDERS: PCP Nurse Practitioner; Visit Provider Obstetrics & Gynecology
PROC: 0UDB8ZZ Extraction of Endometrium, Via Natural or Artificial Opening Endoscopic (ICD-10-PCS; CPT 58558; principal; 2023-09-23 07:30)
DX: N95.0 Postmenopausal bleeding (principal); R93.89 Abnormal findings on diagnostic imaging of other specified body structures
CPT/HCPCS: 58558; 88305; J1100; J1885; J2001; J2405; J2704

== ENCOUNTER 2024-04-22 13:30 | Emergency (ER) | payer MEDICARE, SELFPAY ==
[2024-04-22 13:31] VITALS: BP 131/88; PULSE 69; RESP 20; TEMP 36.3; O2SAT 96
[2024-04-22 13:41] VITALS: BP 131/88; PULSE 69; RESP 20; TEMP 36.3; O2SAT 96
--- NOTE | 2024-04-22 13:45 | DI.US_ITS ---
Exam(s) US LOWER EXTREMITY VENOUS RT EXAM: US LOWER EXTREMITY VENOUS RT CLINICAL HISTORY: swelling and pain. TECHNIQUE: Lower extremity venous ultrasound performed using grayscale, color-flow, and spectral Do ppler analysis. COMPARISON: No exams were available for comparison FINDINGS: The common femoral, femoral and popliteal veins demonstrate normal compressibility, augmentation, and color Doppler. The posterior tibial and peroneal veins are patent. No saphenous vein thrombosis or other superficial venous thrombosis is seen. No hematoma or Albarran's cyst is seen. IMPRESSION: Negative lower extremity ultrasound. No evidence of DVT. DATA REPOSITORY:
--- NOTE | 2024-04-22 15:00 | DI.RAD_ITS ---
Exam(s) XR ANKLE RT COMPLETE EXAM: XR ANKLE RT COMPLETE CLINICAL HISTORY: pain medial up to mid tib. TECHNIQUE: 2D digital imaging was performed. Three views. COMPARISON: CR XR ANKLE RT COMPLETE from 10/21/2019 FINDINGS: BONES: No acute fracture is present. No bony destructive lesion is seen. Heel spurs. JOINTS: The ankle mortise is normally aligned. Mild spurring at dorsal talonavicular joint. SOFT TISSUE: Soft tissue swelling. IMPRESSION: No acute abnormality. DATA REPOSITORY: RADIATION DOSE DELIVERED:
[2024-04-22 15:05] VITALS: RESP 14
[2024-04-22] MEDS: Acetaminophen 325 MG TAB 650 MG PO (15:10)
--- NOTE | 2024-04-22 15:30 | ED.GENADUL_ITS ---
Discharge Plan Disposition Patient Disposition: Home Condition: Stable Discharge Details Clinical Impression: Acute pain of right lower extremity Primary Care Provider: Randa Galvez ED Provider: Maximo Viera Home Meds and New Rx's Prescriptions: Continued omeprazole 10 mg capsule,delayed release(DR/EC) 40 mg PO DAILY trazodone 50 mg tablet 50 mg PO DAILY PRN carbamazepine [Tegretol XR] 100 mg tablet extended release 12 hr 200 mg PO BID Patient Comments: 09/21/23- pt reports taking 200 mg po BID per list on phone- per pt takes for trigeminal neuralgia lisinopril 10 mg tablet 40 mg PO DAILY sertraline [Zoloft] 25 mg tablet 100 mg PO DAILY naproxen 250 mg tablet 250 mg PO BID PRN amlodipine 10 mg tablet 10 mg PO DAILY levothyroxine 25 mcg capsule 25 mcg PO DAILY oxycodone-acetaminophen 2.5-325 mg tablet 1 tab PO Q8H PRN furosemide [Lasix] 40 MG tablet 40 mg PO DAILY gabapentin 800 mg Tablet 800 mg PO QID Eliquis DVT-PE Treat 30D Start 5 mg (74 tabs) tablets,dose pack See Rx Instructions .ROUTE .COMPLEX Qty: 74 0RF Rx Instructions: orally per package directions metoprolol succinate 100 mg Tablet Extended Release 24 Hr 100 mg PO DAILY Discharge Instructions Instructions: Leg Pain (ED) Additional Instructions: Use walker to assist with ambulation and reduce weightbearing. Please take tylenol (acetaminophen) 650 mg every 6 hours as needed for pain. Be sure to avoid any other medications that containe tylenol (acetaminophen). Please follow-up with your primary care physician. Return to the emergency department immediately for any worsening or new concerning symptoms. Referrals: Randa Galvez [Primary Care Provider] - [facility] General Mode of arrival: ambulatory . Date/Time Provider Initiated Documentation: 04/22/24 13:51 . Limitations to Documentation: no limitations . Information obtained by: patient . HPI Narrative: HISTORY OF PRESENT ILLNESS 68-year-old female with a history of DVT and pulmonary embolism on Eliquis, presenting with right leg pain and swelling. Sudden onset of pain and swelling in the right leg from mid-lower leg to foot since Thursday. Pain is excruciating, especially when bearing weight, necessitating a walker. No similar symptoms in the left leg. No trauma, rash, fever, chills, chest pain, shortness of breath, nausea, vomiting, or abdominal pain. Unable to reach her foot for weeks due to sharp pain in the big toe, which has recently subsided. Advised against ibuprofen due to Eliquis but can take Tylenol. Chronic back pain unchanged. Last DVT episode 10 months ago affected her lung, leading to lifelong Eliquis therapy. Related Data Home Medications ?Medication ?Instructions ?Recorded ?Confirmed Lasix 40 mg tablet (furosemide) 40 mg PO DAILY 12/09/16 04/22/24 gabapentin 800 mg tablet 800 mg PO QID 06/19/20 04/22/24 omeprazole 10 mg capsule,delayed 40 mg PO DAILY 06/09/22 04/22/24 release trazodone 50 mg tablet 50 mg PO DAILY PRN 06/09/22 04/22/24 Zoloft 25 mg tablet (sertraline) 100 mg PO DAILY 07/30/22 04/22/24 lisinopril 10 mg tablet 40 mg PO DAILY 07/30/22 04/22/24 metoprolol succinate 100 mg 100 mg PO DAILY 09/27/22 04/22/24 tablet,extended release 24 hr naproxen 250 mg tablet 250 mg PO BID PRN 10/27/22 04/22/24 apixaban 5 mg (74 tabs) tablets in See Rx Instructions PO .COMPLEX 06/03/23 04/22/24 a dose pack (Eliquis DVT-PE Treat #74 dose pk 30D Start) oxycodone-acetaminophen 2.5 mg-325 1 tab PO Q8H PRN 06/29/23 04/22/24 mg tablet amlodipine 10 mg tablet 10 mg PO DAILY 09/21/23 04/22/24 carbamazepine 100 mg 200 mg PO BID 09/21/23 04/22/24 tablet,extended release,12 hr (Tegretol XR) levothyroxine 25 mcg capsule 25 mcg PO DAILY 09/21/23 04/22/24 Previous Rx's ?Medication ?Instructions ?Recorded apixaban 5 mg (74 tabs) tablets in See Rx Instructions PO .COMPLEX 06/03/23 a dose pack (Eliquis DVT-PE Treat #74 dose pk 30D Start) Allergies Allergy/AdvReac Type Severity Reaction Status Date / Time No Known Allergies Allergy Verified 04/22/24 13:39 General Stated Complaint: [facility] JAKE: 3 Review of Systems Narrative: REVIEW OF SYSTEMS Negative for rash, fever, chills, chest pain, shortness of breath, nausea, vomiting, or abdominal pain. Exam Narrative Exam Narrative: PHYSICAL EXAM General Appearance: Normal. Vital signs: Within normal limits. HEENT: Within normal limits. Respiratory: Lungs clear. No wheeze or rales. Cardiovascular: Heart regular rate and rhythm, no murmur. Gastrointestinal: Bowel sounds normal, no abdominal tenderness. Back, Musculoskeletal: No lumbar spine tenderness. Extremities: Trace nonpitting edema in both legs. Bilateral dorsalis pedis pulses 2+. Mild tenderness medial ankle. No bruising, warmth, or redness of the leg. Flexion and extension at ankle intact. Skin: Warm and dry, no rash. Neurological: Sensation intact in distal toes. Wiggles toes. Course Vital Signs Vital signs: Vital Signs Temperature 36.3 C L 04/22/24 13:31 Pulse 69 04/22/24 13:31 Respiratory Rate 20 04/22/24 13:31 Blood Pressure 131/88 04/22/24 13:31 Pulse Oximetry 96 04/22/24 13:31 Temperature 36.3 C L 04/22/24 13:41 Temperature Source Oral 04/22/24 13:41 Pulse 69 04/22/24 13:41 Respiratory Rate 14 04/22/24 15:05 Respiratory Effort Normal, Non-Labored 04/22/24 15:05 Respiratory Depth Normal 04/22/24 15:05 Respiratory Pattern Normal 04/22/24 15:05 Blood Pressure 131/88 04/22/24 13:41 Pulse Oximetry 96 04/22/24 13:41 Pain Level 6 04/22/24 13:41 Medical Decision Making ASSESSMENT AND PLAN Initial Assessment: 68-year-old female with a history of DVT and pulmonary embolism on Eliquis, presenting with sudden onset right lower extremity pain and swelling. Differential Diagnosis: - Recurrent thrombotic event: Considered due to history of DVT and PE, but duplex ultrasound showed no thrombus. Plan: Order x-ray to rule out fractures. - Atypical fracture: Possible due to sudden onset pain and swelling. Plan: Order x-ray of right lower extremity. - Neuropathic pain from disc herniation: Unlikely due to unchanged chronic back pain. Plan: No further immediate action. ED Course: - Duplex ultrasound of right leg: No thrombus, reviewed by radiologist. - Physical exam: Trace nonpitting edema of both legs, good bilateral dorsalis pedis pulses, intact sensation, no warmth or redness, no lumbar spine tenderness or inflammation. - Plan: Order x-ray of right lower extremity to rule out fractures. - Pain management: Advise Tylenol every 6 hours, continue using walker or crutches. Final Assessment: Sudden onset right lower extremity pain and swelling with no evidence of thrombus on ultrasound. X-ray ordered to rule out fractures. Pain management with Tylenol and use of walker or crutches advised. Clinical Impression: - Right lower extremity pain and swelling - Chronic back pain - History of DVT and pulmonary embolism Disposition: - Discharge - Follow-Up: With PCP. Patient Education: Advised on the use of Tylenol every 6 hours for pain and to continue using walker or crutches to keep weight off the affected leg. MDM Components Evaluation: - Number of Differential Diagnoses or Management Options: Recurrent thrombotic event, atypical fracture, neuropathic pain from disc herniation - Amount and Complexity of Data Reviewed: Duplex ultrasound results, physical exam findings - Risk of Complication and Morbidity or Mortality: Moderate due to history of DVT and PE, potential for recurrent thrombotic event, and need to rule out fractures. This document was written with the assistance of ISABELLE Ryder. The patient consented to its use. Quality:SDOH Health Related Social Needs: No Data to Display PFSH All Active Problems (Updated 04/22/24 @ 15:35 by Maximo Viera MD) Acute pain of right lower extremity (Acute) Status post dilation and curettage (Acute) 09/2023. Benign endometrium and endocervix Uterine fibroid (Acute) Thickened endometrium (Acute) Strain of right gastrocnemius muscle (Acute) Bursitis of left shoulder (Acute) Tendinitis of long head of biceps brachii of left shoulder (Acute) Left rotator cuff tear (Acute) COPD (chronic obstructive pulmonary disease) (Chronic) Tobacco abuse (Acute) Elevated troponin (Acute) Bilateral pulmonary embolism (Acute) Pulmonary emboli (Chronic) Infected hematoma following procedure (Acute) Antibiotic-associated diarrhea (Acute) Colitis due to Clostridium difficile (Acute) Impingement syndrome of right shoulder (Acute) Mass of right ankle (Acute) Hyperlipidemia (Acute) Superficial thrombophlebitis (Acute) Medical History Hx of backache History of depression Idiopathic pancreatitis Gallstones without obstruction of gallbladder Gallstones Hypertension GERD (gastroesophageal reflux disease) Kidney stones Fibromyalgia Surgical History History of total right knee replacement (07/02/22) Status post total left knee replacement (12/27/19) History of total bilateral knee replacement Hx of colonoscopy S/P laparoscopic cholecystectomy (~06/15/19) Tonsillectomy , Ectopic EGD - MAC (12/24/16) Family History Mother Diabetes Brother Heart disease Hypertension Other Adopted Social History Smoking/Tobacco Use Status: Current every day Tobacco Type: e-cigarettes Tobacco: How many years used: 40 Smokeless tobacco user: other Smoking risk assessment performed?: Yes Alcohol Intake: current Alcohol Intake frequency: holidays/special occasions only Alcohol type: hard liquor Drug use: Never Substance use type: does not use Housing: house current occupation: caregiver Current gender identity: female Additional Social history: unable to assess privately
[2024-04-22 16:03] VITALS: BP 131/84; PULSE 65; RESP 18; O2SAT 96
== END 2024-04-22 16:07 | disposition home or self-care (01) ==
PROVIDERS: Emergency Provider Student in an Organized Health Care Education/Training Program; PCP Nurse Practitioner
DX: M79.604 Pain in right leg (principal); Z86.711 Personal history of pulmonary embolism; Z79.01 Long term (current) use of anticoagulants; F17.290 Nicotine dependence, other tobacco product, uncomplicated
CPT/HCPCS: 99284; 73610; 93971; 99283